=== PATIENT | male | born 1945 | race Caucasian/White ===

== ENCOUNTER 2016-07-27 02:17 | Inpatient (IN) | payer OTHER, MEDICARE ==
[2016-07-27] MEDS ORDERED: SODIUM CHLORIDE 0.9% 500 ML IV STA (02:47)
[2016-07-27] MEDS ORDERED: SODIUM CHLORIDE 0.9% 1,000 ML IV STA (02:47)
[2016-07-27] MEDS ORDERED: ONDANSETRON 4 MG/2 ML VIAL IVP STA (02:47)
[2016-07-27] MEDS ORDERED: PANTOPRAZOLE 40 MG/10 ML VIAL IVP STA (02:47)
--- NOTE | 2016-07-27 02:55 | ED ---
General Adult HPI - General Chief complaint: GI Bleed Stated complaint: bleeding Time Seen by Provider: 07/27/16 02:47 Source: patient, RN notes reviewed, old records reviewed Mode of arrival: ambulatory Limitations: no limitations - History of Present Illness Initial comments: This is a 70 male here for evaluation, patient presented here for evaluation of blood in his stool. Patient of breath or blood in stool about a cup, no blood thinners, no history of prior similar issues. No nausea vomiting, no abdominal pain this time. Patient has no trauma. No recent colonoscopy. No recent fevers. No recent diarrheal illnesses - Related Data Home Medications Medication Instructions Recorded Confirmed Aspirin [Adult Low Dose Aspirin EC] 81 mg PO DAILY 10/23/15 03/20/16 Atorvastatin [Lipitor] 80 mg PO HS 10/23/15 03/20/16 Clopidogrel [Plavix] 75 mg PO DAILY 10/23/15 03/20/16 Insulin Detemir [Levemir] 15 unit SQ DAILY 10/23/15 03/20/16 Levothyroxine Sodium [Levoxyl] 125 mcg PO DAILY 10/23/15 03/20/16 Lisinopril [Zestril] 10 mg PO HS 10/23/15 03/20/16 Nitroglycerin Sl Tabs [Nitrostat] 0.4 mg SUBLINGUAL Q5M PRN 10/23/15 03/20/16 Omeprazole 20 mg PO DAILY 10/23/15 03/20/16 Pregabalin [Lyrica] 50 mg PO DAILY 10/23/15 03/20/16 Propranolol HCl [Inderal Xl] 80 mg PO DAILY 10/23/15 03/20/16 Saxagliptin HCl [Onglyza] 5 mg PO DAILY 10/23/15 03/20/16 metFORMIN HCL 1,000 mg PO BID 10/23/15 03/20/16 Magnesium 200 mg PO TID 11/02/15 03/20/16 glipiZIDE [Glucotrol] 10 mg PO AC-BID 03/20/16 03/20/16 Allergies Allergy/AdvReac Type Severity Reaction Status Date / Time codeine Allergy Unknown Verified 07/27/16 02:27 Childhood heparin Allergy Unknown Verified 07/27/16 02:27 procaine HCl [From Novocain] Allergy Unknown Verified 07/27/16 02:27 Review of Systems ROS Statement: Those systems with pertinent positive or pertinent negative responses have been documented in the HPI. ROS Other: All systems not noted in ROS Statement are negative. Past Medical History Past Medical History: Coronary Artery Disease (CAD), Cancer, Chest Pain / Angina , Heart Failure, Diabetes Mellitus, Hyperlipidemia, Hypertension, Liver Disease , Myocardial Infarction ([place]), Thyroid Disorder Additional Past Medical History / Comment(s): low magnesium; Liver cancer Last Myocardial Infarction Date:: 08/2015 History of Any Multi-Drug Resistant Organisms: None Reported Past Surgical History: Heart Catheterization With Stent, Hernia Repair Additional Past Surgical History / Comment(s): sinus surgery, liver surgery, cardiac stenting x7-8 Past Anesthesia/Blood Transfusion Reactions: No Reported Reaction Date of Last Stent Placement:: 08/2015 Past Psychological History: No Psychological Hx Reported Smoking Status: Former smoker Past Alcohol Use History: None Reported Past Drug Use History: None Reported - Past Family History Mother Family Medical History: Myocardial Infarction ([place]) Father Family Medical History: Myocardial Infarction ([place]) General Exam Limitations: no limitations General appearance: alert, in no apparent distress Head exam: Present: atraumatic, normocephalic, normal inspection Eye exam: Present: normal appearance, PERRL, EOMI. Absent: scleral icterus, conjunctival injection, periorbital swelling ENT exam: Present: normal exam, mucous membranes moist Neck exam: Present: normal inspection. Absent: tenderness, meningismus, lymphadenopathy Respiratory exam: Present: normal lung sounds bilaterally. Absent: respiratory distress, wheezes, rales, rhonchi, stridor Cardiovascular Exam: Present: regular rate, normal rhythm, normal heart sounds. Absent: systolic murmur, diastolic murmur, rubs, gallop, clicks GI/Abdominal exam: Present: soft, normal bowel sounds. Absent: distended, tenderness, guarding, rebound, rigid Extremities exam: Present: normal inspection, full ROM, normal capillary refill. Absent: tenderness, pedal edema, joint swelling, calf tenderness Back exam: Present: normal inspection Neurological exam: Present: alert, oriented X3, CN II-XII intact Psychiatric exam: Present: normal affect, normal mood Skin exam: Present: warm, dry, intact, normal color. Absent: rash Course Vital Signs 07/27/16 07/27/16 07/27/16 02:23 03:27 05:12 Temperature 97.4 F L Pulse Rate 70 76 59 L Respiratory 18 16 16 Rate Blood Pressure 150/76 99/52 107/58 O2 Sat by Pulse 98 98 98 Oximetry - Reevaluation(s) Reevaluation #1: 07/27/16 05:31 Patient still feels lightheaded and weak Reevaluation #2: 07/27/16 05:31 Patient is without bloody bowel movement here in the emergency room Reevaluation #3: 07/27/16 05:31 No prior hemoglobin of recent and record Reevaluation #4: 07/27/16 05:31 Patient states she would like to be transferred to [place] where he had his prior care EKG Findings - EKG Comments: EKG Findings:: EKG shows sinus bradycardia rate of 57, MA 182, QRS 94, QTC 436 Medical Decision Making - Medical Decision Making 70 male to ER for evaluation of bright red blood per rectum. Patient has no active bleeding at this time, no bloody bowel movements here emergency room, hemodynamically stable, vital signs have been normal throughout ER stay stated, hemoglobin 10.7. Patient will be needed to be admitted for current and further GI evaluation - Lab Data Result diagrams: 07/27/16 02:43 07/27/16 02:43 Lab Results 07/27/16 07/27/16 07/27/16 Range/Units 02:33 02:43 02:43 WBC 7.8 (3.8-10.6) k/uL RBC 3.85 L (4.30-5.90) m/uL Hgb 10.4 L (13.0-17.5) gm/dL Hct 33.4 L (39.0-53.0) % MCV 86.8 (80.0-100.0) fL MCH 27.0 (25.0-35.0) pg MCHC 31.1 (31.0-37.0) g/dL RDW 20.5 H (11.5-15.5) % Plt Count 121 L (150-450) k/uL Neutrophils % 61 % Lymphocytes % 14 % Monocytes % 12 % Eosinophils % 9 % Basophils % 1 % Neutrophils # 4.8 (1.3-7.7) k/uL Lymphocytes # 1.1 (1.0-4.8) k/uL Monocytes # 0.9 (0-1.0) k/uL Eosinophils # 0.7 (0-0.7) k/uL Basophils # 0.1 (0-0.2) k/uL Hypochromasia Slight Anisocytosis Moderate PT (9.0-12.0) sec INR (<1.1) APTT (22.0-30.0) sec Sodium (137-145) mmol/L Potassium (3.5-5.1) mmol/L Chloride (98-107) mmol/L Carbon Dioxide (22-30) mmol/L Anion Gap mmol/L BUN (9-20) mg/dL Creatinine (0.66-1.25) mg/dL Est GFR (MDRD) Af Amer (>60 ml/min/1.73 sqM) Est GFR (MDRD) Non-Af (>60 ml/min/1.73 sqM) Glucose (74-99) mg/dL Plasma Lactic Acid Ronal (0.7-2.0) mmol/L Calcium (8.4-10.2) mg/dL Magnesium (1.6-2.3) mg/dL Total Bilirubin (0.2-1.3) mg/dL AST (17-59) U/L ALT (21-72) U/L Alkaline Phosphatase (38-126) U/L Total Creatine Kinase 69 (55-170) U/L CK-MB (CK-2) 1.5 (0.0-2.4) ng/mL CK-MB (CK-2) Rel Index 2.2 Troponin I <0.012 (0.000-0.034) ng/mL Total Protein (6.3-8.2) g/dL Albumin (3.5-5.0) g/dL Lipase (23-300) U/L Blood Type O Positive Blood Type Recheck No Antibody Screen NEGATIVE Spec Expiration Date 07/30/2016 - 233207/27/16 07/27/16 07/27/16 Range/Units 02:43 02:43 02:43 WBC (3.8-10.6) k/uL RBC (4.30-5.90) m/uL Hgb (13.0-17.5) gm/dL Hct (39.0-53.0) % MCV (80.0-100.0) fL MCH (25.0-35.0) pg MCHC (31.0-37.0) g/dL RDW (11.5-15.5) % Plt Count (150-450) k/uL Neutrophils % % Lymphocytes % % Monocytes % % Eosinophils % % Basophils % % Neutrophils # (1.3-7.7) k/uL Lymphocytes # (1.0-4.8) k/uL Monocytes # (0-1.0) k/uL Eosinophils # (0-0.7) k/uL Basophils # (0-0.2) k/uL Hypochromasia Anisocytosis PT 12.7 H (9.0-12.0) sec INR 1.3 (<1.1) APTT 25.9 (22.0-30.0) sec Sodium 142 (137-145) mmol/L Potassium 4.6 (3.5-5.1) mmol/L Chloride 111 H (98-107) mmol/L Carbon Dioxide 20 L (22-30) mmol/L Anion Gap 11 mmol/L BUN 22 H (9-20) mg/dL Creatinine 0.80 (0.66-1.25) mg/dL Est GFR (MDRD) Af Amer >60 (>60 ml/min/1.73 sqM) Est GFR (MDRD) Non-Af >60 (>60 ml/min/1.73 sqM) Glucose 83 (74-99) mg/dL Plasma Lactic Acid Ronal 2.5 H* (0.7-2.0) mmol/L Calcium 8.9 (8.4-10.2) mg/dL Magnesium 1.5 L (1.6-2.3) mg/dL Total Bilirubin 1.8 H (0.2-1.3) mg/dL AST 55 (17-59) U/L ALT 46 (21-72) U/L Alkaline Phosphatase 179 H (38-126) U/L Total Creatine Kinase (55-170) U/L CK-MB (CK-2) (0.0-2.4) ng/mL CK-MB (CK-2) Rel Index Troponin I (0.000-0.034) ng/mL Total Protein 5.3 L (6.3-8.2) g/dL Albumin 2.8 L (3.5-5.0) g/dL Lipase 46 (23-300) U/L Blood Type Blood Type Recheck Antibody Screen Spec Expiration Date Disposition Clinical Impression: Gastrointestinal hemorrhage Disposition: OTHER INSTITUTION NOT DEFINED Condition: Fair Instructions: Gastrointestinal Bleeding (ED) Referrals: Nonstaff,Physician [Primary Care Provider] - 1-2 days - Out of Hospital Transfer - Req. Specs Out of Hospital Transfer - Requested Specifics: Other Emergency Center ( [facility])
[2016-07-27 03:20] LABS: Anisocytosis Moderate; Basophils # (A) 0.1 k/uL (0-0.2); Basophils % (A) 1 %; CH 27.4; CHCM 31.6; Eosinophils # (A) 0.7 k/uL (0-0.7); Eosinophils % (A) 9 %; HCT 33.4 % (39.0-53.0); HGB 10.4 gm/dL (13.0-17.5); Hypochromasia Slight; Luc # (Auto) 0.24; Luc % (Auto) 3; Lymphocytes # (A) 1.1 k/uL (1.0-4.8); Lymphocytes % (A) 14 %; MCHC 31.1 g/dL (31.0-37.0); MCV 86.8 fL (80.0-100.0); Mean Platelet Volume 9.2; Monocytes # (A) 0.9 k/uL (0-1.0); Monocytes % (A) 12 %; Neutrophils # (A) 4.8 k/uL (1.3-7.7); Neutrophils % (A) 61 %; RBC 3.85 m/uL (4.30-5.90); RDW 20.5 % (11.5-15.5); WBC 7.8 k/uL (3.8-10.6); WBC (Perox) 7.72
[2016-07-27 03:28] LABS: INR 1.3 (<1.1); Partial Thromboplastin Time 25.9 sec (22.0-30.0); Prothrombin Time 12.7 sec (9.0-12.0)
[2016-07-27 03:35] LABS: ALT 46 U/L (21-72); AST 55 U/L (17-59); Alkaline Phosphatase 179 U/L (38-126); Anion Gap 11 mmol/L; Blood Urea Nitrogen 22 mg/dL (9-20); Calcium 8.9 mg/dL (8.4-10.2); Carbon Dioxide 20 mmol/L (22-30); Chloride 111 mmol/L (98-107); Glucose 83 mg/dL (74-99); Magnesium 1.5 mg/dL (1.6-2.3); Non-African American GFR(MDRD) >60 (>60 ml/min/1.73 sqM); Potassium 4.6 mmol/L (3.5-5.1); Sodium 142 mmol/L (137-145); Total Bilirubin 1.8 mg/dL (0.2-1.3); Total Protein 5.3 g/dL (6.3-8.2)
[2016-07-27 03:52] LABS: Creatine Kinase 69 U/L (55-170)
[2016-07-27 04:05] LABS: Creatine Kinase MB 1.5 ng/mL (0.0-2.4); Troponin I <0.012 ng/mL (0.000-0.034)
[2016-07-27 10:33] LABS: Glucose,Whole Blood 88 mg/dL (75-99)
[2016-07-27] MEDS ORDERED: SODIUM CHLORIDE 0.9% 1,000 ML IV ONE (11:26)
[2016-07-27 12:50] LABS: Anisocytosis Moderate; Basophils % (A) 0 %; CH 27.3; Eosinophils # (A) 0.4 k/uL (0-0.7); Eosinophils % (A) 7 %; HCT 30.8 % (39.0-53.0); HDW 3.24; HGB 9.7 gm/dL (13.0-17.5); Hypochromasia Moderate; Luc % (Auto) 4; Lymphocytes # (A) 0.9 k/uL (1.0-4.8); Lymphocytes % (A) 17 %; MCH 27.8 pg (25.0-35.0); MCHC 31.5 g/dL (31.0-37.0); MCV 88.3 fL (80.0-100.0); Mean Platelet Volume 8.3; Monocytes # (A) 0.5 k/uL (0-1.0); Monocytes % (A) 9 %; Neutrophils # (A) 3.6 k/uL (1.3-7.7); Neutrophils % (A) 64 %; RBC 3.48 m/uL (4.30-5.90); RDW 20.4 % (11.5-15.5); WBC 5.6 k/uL (3.8-10.6); WBC (Perox) 5.81
[2016-07-27] MEDS ORDERED: NITROGLYCERIN SL TABS 0.4 MG TAB SUBLINGUAL PRN (13:33)
[2016-07-27 13:47] LABS: Ovalocytes Present; Polychromasia Present
[2016-07-27 13:48] LABS: Crenated RBC Present; Large Platelets Present
[2016-07-27] MEDS: MAGNESIUM SULFATE-D5W PMX 1 GM in DEXTROSE/WATER 1 100ML.BAG IVPB SCH ×2 (14:56→16:58)
[2016-07-27] MEDS: MAGNESIUM OXIDE 400 MG TAB PO SCH ×2 (16:00→21:19)
[2016-07-27 17:56] LABS: Glucose,Whole Blood 152 mg/dL (75-99)
[2016-07-27] MEDS: LACTATED RINGERS 1,000 ML IV SCH (18:10)
--- NOTE | 2016-07-27 18:54 | HP ---
DATE OF ADMISSION: 07/27/2016 The patient came in with dark stools. The patient denied any abdominal pain. Patient has similar episodes in the past and patient underwent upper and lower GI endoscopy without any significant problems. The patient is scheduled to get a capsule endoscopy in [place] in [place]. The patient had about three such episodes yesterday and one episode today. Patient denied any fevers or chills. The patient denied any hematemesis. The patient denied any abdominal pain. Patient had a cardiac catheterization with eight stents placed in August last year. Patient is on aspirin and Plavix for that. The patient is not on any other anticoagulation. ROS: all other systems were reviewed and were negative. Home medications include: 1. Aspirin. 2. Atorvastatin. 3. Plavix. 4. Levemir. 5. Levothyroxine. 6. Lisinopril. 7. Nitroglycerine. 8. Omeprazole. 9. Pregabalin. 10. Propanol. 11. Sitagliptin. 12. Metformin. 13. Magnesium. 14. Glipizide. ALLERGIES: ALLERGIC TO CODEINE, HEPARIN. PAST MEDICAL HISTORY: Coronary artery disease with previous stents as mentioned above, heart failure as per the documentation but the patient denies any such history to co, diabetes mellitus, hyperlipidemia, hypertension, hypothyroidism, history of liver cancer in remission. Cardiac catheterization and stent placement in the past. SOCIAL HISTORY: Former smoker. Denied any alcohol abuse or drug abuse. FAMILY HISTORY: Myocardial infarction in mother and father had myocardial infarction. PHYSICAL EXAMINATION: VITAL SIGNS: Temperature 97.5, pulse of 66, respiratory rate of 20, blood pressure is 104/68, saturating at 100% on 2 liters of O2 by nasal cannula. GENERAL: The patient is alert and oriented x3, not in any acute distress. Well developed, well nourished. HEENT: Pupils are round and equally reacting to light. EOMI. No scleral icterus. No conjunctival pallor. Normocephalic, atraumatic. No pharyngeal erythema. No thyromegaly. CARDIOVASCULAR: S1 and S2 present. No murmurs, rubs, or gallops. PULMONARY: Chest is clear to auscultation, no wheezing or crackles. ABDOMEN: Soft, nontender, nondistended, normoactive bowel sounds. No palpable organomegaly. MUSCULOSKELETAL: No joint swelling or deformity. EXTREMITIES: No cyanosis, clubbing, or pedal edema. NEUROLOGICAL: Gross neurological examination did not reveal any focal deficits. SKIN: No rashes. LABORATORY DATA: CBC, CMP are abnormal for low hemoglobin of 9.7, which has gone down from 10.4, RDW 20.4 consistent with acute bleed and other significant labs, including BUN of 22, which is definitely elevated but minimally elevated and lactic acid is 2.5, magnesium is 1.5, which will be supplemented because of the lactic acidosis I will go ahead and give some IV fluids. Repeat lactic acid again tomorrow morning. Patient will be kept on IV fluids for today. ASSESSMENT AND PLAN: 1. Acute gastrointestinal bleed, possibility of upper gastrointestinal bleed. The patient is on Protonix at this point of time. The patient will need capsule endoscopy considering his previous normal endoscopies in the past, his bleed can be before small bowel AV malformations is a consideration, I will hold off on aspirin. We will continue with Plavix at this point of time. We cannot hold off on Plavix too long. If approved by [place], patient will be transferred to [facility]. 2. Coronary artery disease. 3. Diabetes mellitus. 4. Hypertension. 5. Hyperlipidemia. 6. History of liver cancer in remission. 7. Hypothyroidism. For above-mentioned chronic medical problems I will go ahead and continue his home medications except for diabetes mellitus. I will hold off on oral hypoglycemics. Patient will be on sliding scale along with Lantus. Gastroenterology was consulted. IONA
[2016-07-27 19:54] LABS: Anisocytosis Moderate; Basophils % (A) 1 %; CH 26.8; CHCM 29.2; Eosinophils # (A) 0.3 k/uL (0-0.7); Eosinophils % (A) 8 %; HCT 30.2 % (39.0-53.0); HDW 3.02; Hypochromasia Marked; Large Platelets Flag Slight; Luc # (Auto) 0.19; Luc % (Auto) 4; Lymphocytes # (A) 0.7 k/uL (1.0-4.8); Lymphocytes % (A) 14 %; MCH 27.6 pg (25.0-35.0); MCHC 29.9 g/dL (31.0-37.0); MCV 92.2 fL (80.0-100.0); Macrocytosis Slight; Mean Platelet Volume 11.8; Monocytes # (A) 0.5 k/uL (0-1.0); Monocytes % (A) 11 %; Neutrophils # (A) 2.8 k/uL (1.3-7.7); Neutrophils % (A) 62 %; RBC 3.27 m/uL (4.30-5.90); RDW 20.5 % (11.5-15.5); WBC 4.5 k/uL (3.8-10.6); WBC (Perox) 4.73
[2016-07-27 20:09] LABS: Crenated RBC Present; Tear Drop Cells Present
[2016-07-27 20:36] LABS: Glucose,Whole Blood 167 mg/dL (75-99)
[2016-07-27] MEDS ORDERED: ATORVASTATIN 80 MG TAB PO SCH (21:00)
[2016-07-28] MEDS: LACTATED RINGERS 1,000 ML IV SCH (02:35)
[2016-07-28 04:46] LABS: Anion Gap 6 mmol/L; Blood Urea Nitrogen 16 mg/dL (9-20); Carbon Dioxide 23 mmol/L (22-30); Chloride 112 mmol/L (98-107); Glucose 96 mg/dL (74-99); Magnesium 1.6 mg/dL (1.6-2.3); Non-African American GFR(MDRD) >60 (>60 ml/min/1.73 sqM); Sodium 141 mmol/L (137-145)
[2016-07-28 06:06] LABS: Anisocytosis Slight; CH 27.4; CHCM 30.7; HCT 30.8 % (39.0-53.0); HDW 3.37; HGB 9.5 gm/dL (13.0-17.5); Hypochromasia Marked; MCH 27.6 pg (25.0-35.0); MCHC 30.9 g/dL (31.0-37.0); MCV 89.5 fL (80.0-100.0); Mean Platelet Volume 8.6; RBC 3.45 m/uL (4.30-5.90); RDW 19.9 % (11.5-15.5); WBC 3.7 k/uL (3.8-10.6); WBC (Perox) 3.72
[2016-07-28] MEDS ORDERED: LEVOTHYROXINE 125 MCG TAB PO SCH (06:30)
--- NOTE | 2016-07-28 07:51 | XR ---
EXAMINATION TYPE: XR chest 1V DATE OF EXAM: 07/28/2016 6:29 AM COMPARISON: 03/20/2016 HISTORY: 70 year-old male shortness of breath TECHNIQUE: Single frontal view of the chest is obtained. FINDINGS: Heart remains upper limits of normal in size. Mild interstitial prominence is unchanged. Interval imp rovement in aeration at the left base with a new patchy peripheral right basilar opacity. IMPRESSION: Improved aeration at the left base with new patchy right basilar opacity which could represent atelec tasis or early infiltrate.
[2016-07-28 07:55] LABS: Glucose,Whole Blood 105 mg/dL (75-99)
[2016-07-28] MEDS: INSULIN LISPRO (humaLOG) 300 UNIT/3 ML VIAL SQ SCH ×3 (08:27→17:42)
[2016-07-28] MEDS: MAGNESIUM OXIDE 400 MG TAB PO SCH ×2 (08:29→17:41)
[2016-07-28 08:49] LABS: Add Differential Manual Differential
[2016-07-28 08:51] LABS: Nucleated Red Blood Cells 0 /100 WBC (0-0); Total Cells Counted 100
[2016-07-28 08:52] LABS: Crenated RBC Present; Ovalocytes Present
[2016-07-28] MEDS ORDERED: CLOPIDOGREL 75 MG TAB PO SCH (09:00)
[2016-07-28] MEDS ORDERED: PREGABALIN 50 MG CAP PO SCH (09:00)
[2016-07-28] MEDS ORDERED: PROPRANOLOL LA 80 MG CAP.SA.24H PO SCH (09:00)
[2016-07-28] MEDS ORDERED: INSULIN DETEMIR 100 UNIT/ML 10 ML VIAL SQ SCH (09:00)
[2016-07-28] MEDS ORDERED: PANTOPRAZOLE 40 MG/10 ML VIAL IVP SCH (09:45)
--- NOTE | 2016-07-28 09:58 | P.CNPUL ---
History of Present Illness Consult date: 07/28/16 Requesting physician: Gordy Dc Reason for consult: other (Critical care management) Chief complaint: Rectal bleeding History of present illness: This is a very pleasant 70-year-old gentleman who follows with Dr. Feng in [place]. He has a history of liver cancer status post chemo therapy, congestive heart failure, diabetes mellitus, hyperlipidemia, hypertension, hypothyroidism and coronary artery disease with previous stent placements 7. He is maintained on Plavix and aspirin. He follows with a wedding cake designer in the [facility]. He presented here yesterday with complaints of rectal bleeding. This was new for him and just started yesterday he felt there is at least a cup of blood. He did have some mild abdominal discomfort. He denied any chest pain, shortness of breath dizziness or lightheadedness. He presented with a hemoglobin of 9.0. His platelet counts were 37,000. He did receive 1 unit of packed red blood cells. His current hemoglobin is 9.0. Platelet count 69,000. He has had continued active bleeding since being here in the intensive care unit. The plan is for possible transfer to the [facility] as a bed becomes available if there is some delay he may have a capsule study while here. Currently he has no pulmonary complaints. No shortness of breath, cough or congestion. He has a remote history of smoking. He quit in 1994. His chest x-ray revealed some mild atelectasis in the right lung base. He is maintaining good O2 saturations in the 90s on room air. He currently has a 0.9 normal saline at 100 and milliliters per hour. His initial lactate was 2.2 currently 1.2. Review of Systems 14 point review of system was conducted. All negative other than as mentioned in the HPI. Past Medical History Past Medical History: Coronary Artery Disease (CAD), Cancer, Chest Pain / Angina , Heart Failure, Diabetes Mellitus, Hyperlipidemia, Hypertension, Liver Disease , Myocardial Infarction ([place]), Thyroid Disorder Additional Past Medical History / Comment(s): 10/2015 liver cancer was treated in [place] with chemo directly into a couple of the tumors and "burning" of the other tumors, IDDM type II, hypothyroid, hypomagnesium. Last Myocardial Infarction Date:: 1997 History of Any Multi-Drug Resistant Organisms: None Reported Past Surgical History: Heart Catheterization With Stent, Hernia Repair Additional Past Surgical History / Comment(s): sinus surgery, liver surgery at [place], cardiac stenting x7-8, EGD/colonoscopy, L inguinal hernia surgery. Past Anesthesia/Blood Transfusion Reactions: No Reported Reaction Date of Last Stent Placement:: 08/2015 Past Psychological History: No Psychological Hx Reported Additional Psychological History / Comment(s): Pt resides alone. He is independent. Smoking Status: Former smoker Past Alcohol Use History: None Reported Additional Past Alcohol Use History / Comment(s): Pt states he quit smokin in 1994. Past Drug Use History: None Reported - Past Family History Mother Family Medical History: Myocardial Infarction ([place]) Additional Family Medical History / Comment(s): Mother had a [place] at the age of 55yrs and then of a [place] at the age of 57yrs. Father Family Medical History: CVA/TIA Additional Family Medical History / Comment(s): Father had a endartectomy and during which he had a CVA and . He was 81 yrs old. Medications and Allergies Home Medications Medication Instructions Recorded Confirmed Type Aspirin [Adult Low Dose Aspirin EC] 81 mg PO DAILY 10/23/15 07/27/16 History Atorvastatin [Lipitor] 80 mg PO HS 10/23/15 07/27/16 History Clopidogrel [Plavix] 75 mg PO DAILY 10/23/15 07/27/16 History Insulin Detemir [Levemir] 15 unit SQ DAILY 10/23/15 07/27/16 History Levothyroxine Sodium [Levoxyl] 125 mcg PO DAILY 10/23/15 07/27/16 History Lisinopril [Zestril] 10 mg PO HS 10/23/15 07/27/16 History Nitroglycerin Sl Tabs [Nitrostat] 0.4 mg SUBLINGUAL Q5M PRN 10/23/15 07/27/16 History Omeprazole 20 mg PO DAILY 10/23/15 07/27/16 History Pregabalin [Lyrica] 50 mg PO DAILY 10/23/15 07/27/16 History Propranolol HCl [Inderal Xl] 80 mg PO DAILY 10/23/15 07/27/16 History Saxagliptin HCl [Onglyza] 5 mg PO DAILY 10/23/15 07/27/16 History metFORMIN HCL 1,000 mg PO BID 10/23/15 07/27/16 History Magnesium 200 mg PO TID 11/02/15 07/27/16 History glipiZIDE [Glucotrol] 10 mg PO AC-BID 03/20/16 07/27/16 History Allergies Allergy/AdvReac Type Severity Reaction Status Date / Time codeine Allergy Unknown Verified 07/27/16 02:27 Childhood heparin Allergy Unknown Verified 07/27/16 02:27 procaine HCl [From Novocain] Allergy Unknown Verified 07/27/16 02:27 Physical Exam Vitals: Vital Signs Temp Pulse Pulse Resp BP BP BP 07/28/16 09:00 70 22 115/66 07/28/16 08:10 72 18 107/62 07/28/16 07:00 66 13 96/54 07/28/16 06:00 58 L 17 115/65 07/28/16 05:00 70 18 115/65 07/28/16 04:00 97.9 F 65 15 97/47 07/28/16 03:00 56 L 13 97/57 07/28/16 02:00 68 18 103/58 07/28/16 01:00 57 L 13 93/51 07/28/16 00:40 98.2 F 68 16 93/52 07/28/16 00:00 98.2 F 66 62 12 75/42 07/27/16 23:00 63 16 94/51 07/27/16 22:44 98.2 F 72 18 94/51 07/27/16 22:14 98.2 F 75 16 97/55 07/27/16 22:04 98.3 F 65 18 97/51 07/27/16 22:00 64 22 118/62 07/27/16 21:00 57 L 21 118/62 07/27/16 20:37 07/27/16 19:45 97.4 F L 60 16 118/66 07/27/16 18:39 124/75 07/27/16 14:43 97.5 F L 65 20 92/60 07/27/16 12:45 97.8 F 57 L 20 111/53 07/27/16 11:55 97.8 F 66 18 105/68 Pulse Ox 07/28/16 09:00 96 07/28/16 08:10 95 07/28/16 07:00 94 L 07/28/16 06:00 95 07/28/16 05:00 94 L 07/28/16 04:00 94 L 07/28/16 03:00 95 07/28/16 02:00 93 L 07/28/16 01:00 91 L 07/28/16 00:40 07/28/16 00:00 94 L 07/27/16 23:00 91 L 07/27/16 22:44 07/27/16 22:14 07/27/16 22:04 07/27/16 22:00 94 L 07/27/16 21:00 96 07/27/16 20:37 96 07/27/16 19:45 97 07/27/16 18:39 07/27/16 14:43 100 07/27/16 12:45 99 07/27/16 11:55 98 Intake and Output 07/27/16 07/28/16 07/28/16 22:59 06:59 14:59 Intake Total 0 1110 300 Output Total 100 Balance 0 1010 300 Intake: IV 800 300 Lactated Ringers 1,000 ml 800 300 @ 100 mls/hr IV .Q10H MAC Rx#:[id number] Blood Product 0 310 Rc As-1 Unit 0 310 [id number] Output: Urine 100 Other: Voiding Method Toilet Toilet Toilet Urinal Urinal # Voids 1 # Bowel Movements 1 1 Weight 100.2 kg GENERAL EXAM: Alert, comfortable in no apparent distress. HEAD: Normocephalic. EYES: Normal reaction of pupils, equal size. NOSE: Clear with pink turbinates. THROAT: No erythema or exudates. NECK: No masses, no JVD. CHEST: No chest wall deformity. LUNGS: Equal air entry with no crackles, wheeze, rhonchi or dullness. CVS: S1 and S2 normal with no audible murmurs, regular rhythm. ABDOMEN: No hepatosplenomegaly, normal bowel sounds, no guarding or rigidity. SPINE: No scoliosis or deformity SKIN: No rashes CENTRAL NERVOUS SYSTEM: No focal deficits, tone is normal in all 4 extremities. Extremities: There is no peripheral edema. No clubbing no cyanosis. Peripheral pulses are intact. Results - Laboratory Findings CBC and BMP: 07/28/16 04:18 07/28/16 04:18 PT/INR, D-dimer PT 12.7 sec (9.0-12.0) H 07/27/16 02:43 INR 1.3 (<1.1) 07/27/16 02:43 Abnormal lab findings: Abnormal Labs 07/27/16 07/27/16 07/27/16 11:45 16:28 17:14 WBC RBC 3.48 L Hgb 9.7 L Hct 30.8 L MCHC RDW 20.4 H Plt Count 96 L Lymphocytes # 0.9 L Lymphocytes # (Manual) Chloride POC Glucose (mg/dL) 152 H Plasma Lactic Acid Ronal 2.2 H* Calcium 07/27/16 07/27/16 07/27/16 19:06 20:34 20:42 WBC RBC 3.27 L Hgb 9.0 L Hct 30.2 L MCHC 29.9 L RDW 20.5 H Plt Count 37 L* D Lymphocytes # 0.7 L Lymphocytes # (Manual) Chloride POC Glucose (mg/dL) 167 H Plasma Lactic Acid Ronal 2.2 H* Calcium 07/28/16 07/28/16 07/28/16 04:18 04:18 07:54 WBC 3.7 L RBC 3.45 L Hgb 9.5 L Hct 30.8 L MCHC 30.9 L RDW 19.9 H Plt Count 69 L D Lymphocytes # Lymphocytes # (Manual) 0.6 L Chloride 112 H POC Glucose (mg/dL) 105 H Plasma Lactic Acid Ronal Calcium 8.0 L - Diagnostic Findings Chest x-ray: image reviewed (Mild atelectasis of the right lung base.) Assessment and Plan Plan: Impression: #1 Acute gastrointestinal bleeding of unknown source. Suspect small bowel. Presenting hemoglobin 9.0, status post 1 unit of packed red blood cells. Current hemoglobin 9.5. #2 Thrombocytopenia suspect secondary to liver cancer. Initial platelet count 37,000, current count 69,000. #3 History of liver cancer with chemotherapy injected directly into the tumors and possible radiation in October 2015. Reports of which are unavailable. #4 Coronary artery disease with multiple stent placements, 7. Follows with a wedding cake designer in the [facility]. Presented on Plavix and aspirin currently on hold. #5 Hypertension. #6 Hyperlipidemia. #7 Diabetes mellitus, type II. #8 Hypothyroidism. Plan: The patient was seen and evaluated by Dr. Leslie. His chest x-ray and labs were reviewed. The plan is for capsule study to be done at the [facility] as a bed becomes available for transfer. If not we can conduct the procedure here. In the interim we'll continue with the lactated Ringer's at 100 mL per hour. He remains on IV Protonix 40 mg daily. He is currently on a clear liquid diet. We 'll continue to monitor him closely here in the intensive care unit. He currently remains hemodynamically stable. Not on any pressors. We will continue to follow and make further recommendations based on his clinical status. Time with Patient: Greater than 30
--- NOTE | 2016-07-28 10:17 | P.CONS ---
History of Present Illness - Reason for Consult Consult date: 07/28/16 rectal bleeding Requesting physician: Remigio Herring - History of Present Illness 70-year-old gentleman [place] patient presents with painless rectal bleeding that started yesterday. Patient has a history of liver carcinoma October 2015 with chemotherapy, IDDM type II, hypothyroidism, abdominal hernia, hypertension, heart failure, hyperlipidemia, anemia, underlying liver disease, and CAD requiring 8 stents last one placed August 2015 on aspirin Plavix. He was recently hospitalized at [facility] 1 month ago and underwent EGD colonoscopy for evaluation of anemia. According to the patient exams were within normal limits. He states his hemoglobin at that time was between 9-10. There was discussion at that time possibly proceeding with outpatient small bowel capsule endoscopy. He is passing multiple small to moderate episodes of thin red blood per rectum without stool since admission. Denies abdominal pain. Admission hemoglobin 10.4 currently 9.5. He did receive a unit of blood last night for hemoglobin of 9 and platelet count of 37,000. Current platelet count is 69,000. INR 1.3. BUN 16. Creatinine 0.7. No episodes of hematemesis or melena. Afebrile. Hemodynamic stable. Review of Systems Constitutional: Denies fever, chills, sweats, weight gain, or loss. HEENT: Negative for migraines, blurred vision or loss, earaches, drainage, tinnitus, oral mucosal lesions, dysphagia, or odynophagia. Cardiac: CAD with multiple PCI stents. CHF. Hypertension. Hyperlipidemia. Negative for chest pain, arrhythmias, or palpitation. Respiratory: Negative for shortness of breath, hemoptysis, cough, or sputum production. Gastrointestinal: See HPI for pertinent findings. Genitourinary: Negative for hematuria, urgency, frequency, polyuria, dysuria, or penile discharge. Musculoskeletal: Negative for muscle aches, swelling, arthritis, and arthralgias. Neurologic: Negative for stroke or TIA. Endocrine: Hypothyroidism.. Skin: Negative for rash or itching. Psychiatric: Negative history for depression and anxiety All systems: negative (See HPI) Past Medical History Past Medical History: Coronary Artery Disease (CAD), Cancer, Chest Pain / Angina , Heart Failure, Diabetes Mellitus, Hyperlipidemia, Hypertension, Liver Disease , Myocardial Infarction (NE), Thyroid Disorder Additional Past Medical History / Comment(s): 10/2015 liver cancer was treated in [place] with chemo directly into a couple of the tumors and "burning" of the other tumors, IDDM type II, hypothyroid, hypomagnesium. Last Myocardial Infarction Date:: 1997 History of Any Multi-Drug Resistant Organisms: None Reported Past Surgical History: Heart Catheterization With Stent, Hernia Repair Additional Past Surgical History / Comment(s): sinus surgery, liver surgery at [place], cardiac stenting x7-8, EGD/colonoscopy, L inguinal hernia surgery. Past Anesthesia/Blood Transfusion Reactions: No Reported Reaction Date of Last Stent Placement:: 08/2015 Past Psychological History: No Psychological Hx Reported Additional Psychological History / Comment(s): Pt resides alone. He is independent. Smoking Status: Former smoker Past Alcohol Use History: None Reported Additional Past Alcohol Use History / Comment(s): Pt states he quit smokin in 1994. Past Drug Use History: None Reported - Past Family History Mother Family Medical History: Myocardial Infarction (NE) Additional Family Medical History / Comment(s): Mother had a NE at the age of 55yrs and then of a NE at the age of 57yrs. Father Family Medical History: CVA/TIA Additional Family Medical History / Comment(s): Father had a endartectomy and during which he had a CVA and . He was 81 yrs old. Medications and Allergies Home Medications Medication Instructions Recorded Confirmed Type Aspirin [Adult Low Dose Aspirin EC] 81 mg PO DAILY 10/23/15 07/27/16 History Atorvastatin [Lipitor] 80 mg PO HS 10/23/15 07/27/16 History Clopidogrel [Plavix] 75 mg PO DAILY 10/23/15 07/27/16 History Insulin Detemir [Levemir] 15 unit SQ DAILY 10/23/15 07/27/16 History Levothyroxine Sodium [Levoxyl] 125 mcg PO DAILY 10/23/15 07/27/16 History Lisinopril [Zestril] 10 mg PO HS 10/23/15 07/27/16 History Nitroglycerin Sl Tabs [Nitrostat] 0.4 mg SUBLINGUAL Q5M PRN 10/23/15 07/27/16 History Omeprazole 20 mg PO DAILY 10/23/15 07/27/16 History Pregabalin [Lyrica] 50 mg PO DAILY 10/23/15 07/27/16 History Propranolol HCl [Inderal Xl] 80 mg PO DAILY 10/23/15 07/27/16 History Saxagliptin HCl [Onglyza] 5 mg PO DAILY 10/23/15 07/27/16 History metFORMIN HCL 1,000 mg PO BID 10/23/15 07/27/16 History Magnesium 200 mg PO TID 11/02/15 07/27/16 History glipiZIDE [Glucotrol] 10 mg PO AC-BID 03/20/16 07/27/16 History Allergies Allergy/AdvReac Type Severity Reaction Status Date / Time codeine Allergy Unknown Verified 07/27/16 02:27 Childhood heparin Allergy Unknown Verified 07/27/16 02:27 procaine HCl [From Novocain] Allergy Unknown Verified 07/27/16 02:27 Physical Exam Vitals: Vital Signs Temp Pulse Pulse Resp BP BP BP 07/28/16 09:00 70 22 115/66 07/28/16 08:10 98.6 F 72 18 107/62 07/28/16 07:00 66 13 96/54 07/28/16 06:00 58 L 17 115/65 07/28/16 05:00 70 18 115/65 07/28/16 04:00 97.9 F 65 15 97/47 07/28/16 03:00 56 L 13 97/57 07/28/16 02:00 68 18 103/58 07/28/16 01:00 57 L 13 93/51 07/28/16 00:40 98.2 F 68 16 93/52 07/28/16 00:00 98.2 F 66 62 12 75/42 07/27/16 23:00 63 16 94/51 07/27/16 22:44 98.2 F 72 18 94/51 07/27/16 22:14 98.2 F 75 16 97/55 07/27/16 22:04 98.3 F 65 18 97/51 07/27/16 22:00 64 22 118/62 07/27/16 21:00 57 L 21 118/62 07/27/16 20:37 07/27/16 19:45 97.4 F L 60 16 118/66 07/27/16 18:39 124/75 07/27/16 14:43 97.5 F L 65 20 92/60 07/27/16 12:45 97.8 F 57 L 20 111/53 07/27/16 11:55 97.8 F 66 18 105/68 Pulse Ox 07/28/16 09:00 96 07/28/16 08:10 95 07/28/16 07:00 94 L 07/28/16 06:00 95 07/28/16 05:00 94 L 07/28/16 04:00 94 L 07/28/16 03:00 95 07/28/16 02:00 93 L 07/28/16 01:00 91 L 07/28/16 00:40 07/28/16 00:00 94 L 07/27/16 23:00 91 L 07/27/16 22:44 07/27/16 22:14 07/27/16 22:04 07/27/16 22:00 94 L 07/27/16 21:00 96 07/27/16 20:37 96 07/27/16 19:45 97 07/27/16 18:39 07/27/16 14:43 100 07/27/16 12:45 99 07/27/16 11:55 98 Intake and Output 07/27/16 07/28/16 07/28/16 22:59 06:59 14:59 Intake Total 0 1110 300 Output Total 100 Balance 0 1010 300 Intake: IV 800 300 Lactated Ringers 1,000 ml 800 300 @ 100 mls/hr IV .Q10H [facility] Rx#:[id number] Blood Product 0 310 Rc As-1 Unit 0 310 [id number] Output: Urine 100 Other: Voiding Method Toilet Toilet Toilet Urinal Urinal # Voids 1 # Bowel Movements 1 1 Weight 100.2 kg General appearance: The patient is alert, oriented, in no acute distress. HET: Head is normocephalic and atraumatic. Pupils are equal and reactive. Oropharynx is clear without lesions. Neck: Supple without lymphadenopathy. Trachea midline. Heart: S1 S2. Regular rate and rhythm. Lungs: No crackles or wheezes are heard. Abdomen: Soft, large left lower quadrant nonreducible hernia with localized panniculitis, mild tenderness palpated over the hernia but no rebound or guarding. Bowel sounds present. No peritoneal signs. No palpable organomegaly or masses. Extremities: Normal skin color and turgor. No cyanosis, rash, ulceration, clubbing, or edema. Radial and pedal pulses are 2/4 bilaterally. Neurological: No focal deficits. Strength and sensation are grossly intact. Rectal: Thin bright red blood per rectum without stool. No palpable masses. No visible thrombosed hemorrhoids. Results CBC & Chem 7: 07/28/16 04:18 07/28/16 04:18 Labs: Abnormal Lab Results - Last 24 Hours (Table) 07/27/16 07/27/16 07/27/16 Range/Units 11:45 16:28 17:14 WBC (3.8-10.6) k/uL RBC 3.48 L (4.30-5.90) m/uL Hgb 9.7 L (13.0-17.5) gm/dL Hct 30.8 L (39.0-53.0) % MCHC (31.0-37.0) g/dL RDW 20.4 H (11.5-15.5) % Plt Count 96 L (150-450) k/uL Lymphocytes # 0.9 L (1.0-4.8) k/uL Lymphocytes # (Manual) (1.0-4.8) k/uL Chloride (98-107) mmol/L POC Glucose (mg/dL) 152 H (75-99) mg/dL Plasma Lactic Acid Ronal 2.2 H* (0.7-2.0) mmol/L Calcium (8.4-10.2) mg/dL 07/27/16 07/27/16 07/27/16 Range/Units 19:06 20:34 20:42 WBC (3.8-10.6) k/uL RBC 3.27 L (4.30-5.90) m/uL Hgb 9.0 L (13.0-17.5) gm/dL Hct 30.2 L (39.0-53.0) % MCHC 29.9 L (31.0-37.0) g/dL RDW 20.5 H (11.5-15.5) % Plt Count 37 L* D (150-450) k/uL Lymphocytes # 0.7 L (1.0-4.8) k/uL Lymphocytes # (Manual) (1.0-4.8) k/uL Chloride (98-107) mmol/L POC Glucose (mg/dL) 167 H (75-99) mg/dL Plasma Lactic Acid Ronal 2.2 H* (0.7-2.0) mmol/L Calcium (8.4-10.2) mg/dL 07/28/16 07/28/16 07/28/16 Range/Units 04:18 04:18 07:54 WBC 3.7 L (3.8-10.6) k/uL RBC 3.45 L (4.30-5.90) m/uL Hgb 9.5 L (13.0-17.5) gm/dL Hct 30.8 L (39.0-53.0) % MCHC 30.9 L (31.0-37.0) g/dL RDW 19.9 H (11.5-15.5) % Plt Count 69 L D (150-450) k/uL Lymphocytes # (1.0-4.8) k/uL Lymphocytes # (Manual) 0.6 L (1.0-4.8) k/uL Chloride 112 H (98-107) mmol/L POC Glucose (mg/dL) 105 H (75-99) mg/dL Plasma Lactic Acid Ronal (0.7-2.0) mmol/L Calcium 8.0 L (8.4-10.2) mg/dL Assessment and Plan (1) Rectal bleeding Narrative/Plan: 70-year-old gentleman [place] patient admitted with painless bright red blood per rectum for the last 24 hours receiving dual antiplatelet therapy for her history of CAD with multiple PCI stents with underlying history of liver disease and liver carcinoma with acute on chronic anemia with a component of acute blood loss anemia status post EGD colonoscopy 1 month ago at outside facility with unremarkable findings. Etiology of bleeding could be from small bowel possible bleeding angiectasias however underlying neoplasm cannot be entirely excluded. Status: Acute (2) Liver carcinoma Status: Acute (3) Abdominal hernia Status: Acute (4) Thrombocytopenia Status: Acute (5) CAD (coronary artery disease) Status: Acute (6) Acute blood loss anemia Status: Acute (7) Chronic anemia Status: Acute Plan: 1. Request for transfer to [place] in progress. Will tentatively plan on proceeding with small bowel capsule endoscopy tomorrow morning unless patient is transferred to [place] [facility]. 2. Agreeable for clear liquid diet with close monitoring of CBC and blood transfusion as indicated. The corporate banking officer has discussed the risks, benefits and alternative therapies for the above-mentioned procedure and for both sedation/analgesia as well as necessary blood product administration, if indicated, as they pertain to this patient. The patient has indicated understanding and acceptance of the risks and procedures discussed. Thank you for this kind referral and the opportunity to participate in the care of your patient. This consultation was discussed with Dr. Leo. The impression and plan of care have been directed as dictated.
[2016-07-28] MEDS ORDERED: Magnesium Replacement Protocol 1 EACH MISC MISCELLANE PRN (10:53)
[2016-07-28] MEDS: MAGNESIUM SULFATE-D5W PMX 1 GM in DEXTROSE/WATER 1 100ML.BAG IVPB SCH ×2 (11:22→12:28)
[2016-07-28 11:42] LABS: Anisocytosis Slight; CH 27.4; CHCM 30.5; HCT 33.7 % (39.0-53.0); HDW 3.46; HGB 10.3 gm/dL (13.0-17.5); Hypochromasia Marked; MCH 27.6 pg (25.0-35.0); MCHC 30.7 g/dL (31.0-37.0); Mean Platelet Volume 8.3; Poikilocytosis Slight; RBC 3.74 m/uL (4.30-5.90); RDW 19.8 % (11.5-15.5); WBC 6.5 k/uL (3.8-10.6)
[2016-07-28 12:27] VITALS: TEMP 98.7
[2016-07-28 12:32] LABS: Glucose,Whole Blood 174 mg/dL (75-99)
--- NOTE | 2016-07-28 15:35 | DS ---
DATE OF ADMISSION: 07/27/2016 DATE OF DISCHARGE: Patient is a 70-year-old gentleman who came in with complaints of GI bleed, most probably in the small bowel and patient had upper and lower GI endoscopy in [facility] and patient is being transferred to [facility] at this point of time. Patient had 2 large bowel movements, which were bloody today. Patient's hemoglobin at this point of time is 10.3, but probably not an accurate presentation of his actually hemoglobin. His actual hemoglobin is probably way lower. As he is hemodynamically stable we are not transfusing him, but if patient has more bowel movements like this patient may require blood transfusion. Patient is on aspirin and Plavix, which are being held at this point of time. Patient is on IV Protonix at this point of time. Patient had a recent cardiac catheterization with stent placement in the month of August last year. Patient had a recent upper and lower GI endoscopies, which are essentially within normal limits in [facility] as mentioned above. Patient is also on a beta stephanie, propranolol, which is probably not an appropriate medication considering his low normal blood pressures of 90s to 100 systolic and diastolic between 50 to 70. His lisinopril is being held at this point of time. Patient was seen and examined on the day of discharge. Vitals are stable. PHYSICAL EXAMINATION: GENERAL: The patient is alert and oriented x3, not in any acute distress. Well developed, well nourished. HEENT: Pupils are round and equally reacting to light. EOMI. No scleral icterus. No conjunctival pallor. Normocephalic, atraumatic. No pharyngeal erythema. No thyromegaly. CARDIOVASCULAR: S1 and S2 present. No murmurs, rubs, or gallops. PULMONARY: Chest is clear to auscultation, no wheezing or crackles. ABDOMEN: Soft, nontender, nondistended, normoactive bowel sounds. No palpable organomegaly. MUSCULOSKELETAL: No joint swelling or deformity. EXTREMITIES: No cyanosis, clubbing, or pedal edema. NEUROLOGICAL: Gross neurological examination did not reveal any focal deficits. SKIN: No rashes. ASSESSMENT AND PLAN: 1. Acute gastrointestinal bleed, most probably acute blood loss anemia from gastrointestinal bleed, but most probably from small bowel. 2. Coronary artery disease. 3. Type 2 diabetes mellitus. 4. Hypertension. 5. Hyperlipidemia. 6. History of liver cancer, in remission. 7. Hypothyroidism. [facility]. The patient is hemodynamically stable at the time of discharge and has 2 peripheral IV lines at the time of discharge. I spent greater than 35 minutes in total transfer process.
[2016-07-28] MEDS ORDERED: MAGNESIUM CITRATE 296 ML BOTTLE PO ONE (17:00)
[2016-07-28 17:40] LABS: Glucose,Whole Blood 146 mg/dL (75-99)
[2016-07-28 18:16] VITALS: BP 125/74; PULSE 73; RESP 23
== END 2016-07-28 18:46 | DRG 378 ==
LOC: EC 02:17 → 4MS4W 11:29 → 6ICU 20:29
PROVIDERS: ADMIT Internal Medicine; ATTEND Internal Medicine
PROC: 30233N1 Transfusion of Nonautologous Red Blood Cells into Peripheral Vein, Percutaneous Approach (ICD-10-PCS; principal; 2016-07-27)
DX: K92.2 Gastrointestinal hemorrhage, unspecified (principal); E87.2 Acidosis; D69.59 Other secondary thrombocytopenia; I50.9 Heart failure, unspecified; R00.1 Bradycardia, unspecified; I11.0 Hypertensive heart disease with heart failure; E83.42 Hypomagnesemia; D62 Acute posthemorrhagic anemia; J98.11 Atelectasis; I25.10 Atherosclerotic heart disease of native coronary artery without angina pectoris; E11.9 Type 2 diabetes mellitus without complications; R53.1 Weakness; K46.9 Unspecified abdominal hernia without obstruction or gangrene; T46.4X5A Adverse effect of angiotensin-converting-enzyme inhibitors, initial encounter; E03.9 Hypothyroidism, unspecified; E78.5 Hyperlipidemia, unspecified; Z79.82 Long term (current) use of aspirin; Z79.4 Long term (current) use of insulin; Z82.49 Family history of ischemic heart disease and other diseases of the circulatory system; Z95.5 Presence of coronary angioplasty implant and graft; Z87.891 Personal history of nicotine dependence; Z79.02 Long term (current) use of antithrombotics/antiplatelets; Z92.21 Personal history of antineoplastic chemotherapy; Z82.3 Family history of stroke; I25.2 Old myocardial infarction; Z88.4 Allergy status to anesthetic agent; Z88.5 Allergy status to narcotic agent; Z88.8 Allergy status to other drugs, medicaments and biological substances; Z92.3 Personal history of irradiation; Z79.84 Long term (current) use of oral hypoglycemic drugs; Z79.899 Other long term (current) drug therapy; Z85.05 Personal history of malignant neoplasm of liver
CPT/HCPCS: 36415; 71010; 80048; 80053; 82550; 82553; 83605; 83690; 83735; 84484; 85025; 85027; 85610; 85730; 86850; 86900; 86901; 86920; 93005; 96361; 96374; 96375; 99285

== ENCOUNTER 2016-09-18 09:02 | Inpatient (IN) | payer OTHER, MEDICARE ==
[2016-09-18] MEDS ORDERED: SODIUM CHLORIDE 0.9% 1,000 ML IV STA ×2 (09:51→12:49)
[2016-09-18] MEDS ORDERED: TOPICAL SKIN ADHESIVE 1 EACH AMP TOPICAL STA (09:52)
--- NOTE | 2016-09-18 09:55 | ED ---
General Adult HPI - General Chief complaint: Fall Stated complaint: Fall Time Seen by Provider: 09/18/16 09:33 Source: patient, RN notes reviewed Mode of arrival: EMS Limitations: no limitations - History of Present Illness Initial comments: Patient is a pleasant 70-year-old male presenting to the emergency Department with complaints of weakness. Symptoms have been present for a couple of days. Patient fell trying to get out of bed today and was unable to get up off the floor. Patient is not on any blood thinners. Patient did strike his head. Patient states last tetanus immunization was less than 1 year. Patient states his blood sugar has been running high, around 300. Patient states this morning EMS read it as high. Patient feels generally weak. No isolated area of weakness. No confusion. - Related Data Home Medications Medication Instructions Recorded Confirmed Aspirin [Adult Low Dose Aspirin EC] 81 mg PO DAILY 10/23/15 07/27/16 Atorvastatin [Lipitor] 80 mg PO HS 10/23/15 07/27/16 Clopidogrel [Plavix] 75 mg PO DAILY 10/23/15 07/27/16 Insulin Detemir [Levemir] 15 unit SQ DAILY 10/23/15 07/27/16 Levothyroxine Sodium [Levoxyl] 125 mcg PO DAILY 10/23/15 07/27/16 Lisinopril [Zestril] 10 mg PO HS 10/23/15 07/27/16 Nitroglycerin Sl Tabs [Nitrostat] 0.4 mg SUBLINGUAL Q5M PRN 10/23/15 07/27/16 Omeprazole 20 mg PO DAILY 10/23/15 07/27/16 Pregabalin [Lyrica] 50 mg PO DAILY 10/23/15 07/27/16 Propranolol HCl [Inderal Xl] 80 mg PO DAILY 10/23/15 07/27/16 Saxagliptin HCl [Onglyza] 5 mg PO DAILY 10/23/15 07/27/16 metFORMIN HCL 1,000 mg PO BID 10/23/15 07/27/16 Magnesium 200 mg PO TID 11/02/15 07/27/16 glipiZIDE [Glucotrol] 10 mg PO AC-BID 03/20/16 07/27/16 Allergies Allergy/AdvReac Type Severity Reaction Status Date / Time codeine Allergy Unknown Verified 07/27/16 02:27 Childhood heparin Allergy Unknown Verified 07/27/16 02:27 procaine HCl [From Novocain] Allergy Unknown Verified 07/27/16 02:27 Review of Systems ROS Statement: Those systems with pertinent positive or pertinent negative responses have been documented in the HPI. ROS Other: All systems not noted in ROS Statement are negative. Constitutional: Denies: fever Eyes: Denies: eye pain ENT: Denies: ear pain Respiratory: Denies: cough Cardiovascular: Denies: chest pain Endocrine: Reports: fatigue Gastrointestinal: Reports: nausea. Denies: abdominal pain Genitourinary: Denies: dysuria Musculoskeletal: Denies: back pain Neurological: Reports: weakness (Generalized). Denies: headache Past Medical History Past Medical History: Coronary Artery Disease (CAD), Cancer, Chest Pain / Angina , Heart Failure, Diabetes Mellitus, Hyperlipidemia, Hypertension, Liver Disease , Myocardial Infarction (MA), Thyroid Disorder Additional Past Medical History / Comment(s): 10/2015 liver cancer was treated in [place] with chemo directly into a couple of the tumors and "burning" of the other tumors, IDDM type II, hypothyroid, hypomagnesium. Last Myocardial Infarction Date:: 1997 History of Any Multi-Drug Resistant Organisms: None Reported Past Surgical History: Heart Catheterization With Stent, Hernia Repair Additional Past Surgical History / Comment(s): sinus surgery, liver surgery at [place], cardiac stenting x7-8, EGD/colonoscopy, L inguinal hernia surgery. Past Anesthesia/Blood Transfusion Reactions: No Reported Reaction Date of Last Stent Placement:: 08/2015 Past Psychological History: No Psychological Hx Reported Additional Psychological History / Comment(s): Pt resides alone. He is independent. Smoking Status: Former smoker Past Alcohol Use History: None Reported Additional Past Alcohol Use History / Comment(s): Pt states he quit smokin in 1994. Past Drug Use History: None Reported - Past Family History Mother Family Medical History: Myocardial Infarction (MA) Additional Family Medical History / Comment(s): Mother had a MA at the age of 55yrs and then of a MA at the age of 57yrs. Father Family Medical History: CVA/TIA Additional Family Medical History / Comment(s): Father had a endartectomy and during which he had a CVA and . He was 81 yrs old. General Exam Limitations: no limitations General appearance: alert, in no apparent distress Head exam: Present: other (Right forehead laceration) Eye exam: Present: normal appearance, PERRL, EOMI. Absent: nystagmus ENT exam: Present: normal oropharynx Neck exam: Present: normal inspection. Absent: tenderness Respiratory exam: Present: normal lung sounds bilaterally Cardiovascular Exam: Present: regular rate, normal rhythm GI/Abdominal exam: Present: soft. Absent: tenderness Extremities exam: Present: normal inspection, full ROM. Absent: tenderness Neurological exam: Present: alert, oriented X3, CN II-XII intact. Absent: motor sensory deficit Expanded Speech: Present: fluid speech Cranial nerves: EOM's Intact: Normal Motor strength exam: RUE: 5, LUE: 5, RLE: 5, LLE: 5 Eye Response: (4) open spontaneously Motor Response: (6) obeys commands Verbal Response: (5) oriented Psychiatric exam: Present: normal affect, normal mood Skin exam: Present: other (Right forehead laceration) Course Vital Signs 09/18/16 09/18/16 09/18/16 09:06 09:17 09:31 Pulse Rate 83 66 68 Respiratory 16 Rate Blood Pressure 93/54 83/53 94/60 O2 Sat by Pulse 95 94 L 94 L Oximetry 09/18/16 09/18/16 09:42 10:09 Pulse Rate 62 38 L Respiratory Rate Blood Pressure 91/61 77/47 O2 Sat by Pulse 95 97 Oximetry EKG Findings - EKG Comments: EKG Findings:: Junctional rhythm at 54. QRS 90. QT 480. QTC 455. Left axis. Low QRS voltage. T-wave inversion in inferior. Procedures - Laceration Laceration #1 Consent Obtained: verbal consent Time Out Performed: Yes Indication: laceration Site: face (Forehead) Size (cm): 3 Description: linear Depth: simple, single layer Pre-repair: wound explored, irrigated extensively Type of Sutures: other (Closed with Dermabond) Medical Decision Making - Medical Decision Making Patient reevaluated and updated. Concerned does exist regarding elevated troponin. Patient states he does have a heparin ALLERGY however is not completely clear why. Chart review does not document ALLERGY. Patient is unclear if he can take other blood thinners or not. Heparin will need to be held at this time. Cardiac enzymes will be redrawn an echo ordered. Cardiology will consult. Blood sugar will need to be further controlled. Case was discussed in detail with Dr. Ponce, who will admit for hospital call. - Lab Data Result diagrams: 09/18/16 09:49 09/18/16 09:49 Lab Results 09/18/16 09/18/16 09/18/16 Range/Units 09:49 09:49 09:49 WBC 11.0 H (3.8-10.6) k/uL RBC 3.81 L (4.30-5.90) m/uL Hgb 9.4 L (13.0-17.5) gm/dL Hct 32.0 L (39.0-53.0) % MCV 84.2 D (80.0-100.0) fL MCH 24.8 L (25.0-35.0) pg MCHC 29.5 L (31.0-37.0) g/dL RDW 17.1 H (11.5-15.5) % Plt Count 138 L (150-450) k/uL Neutrophils % 79 % Lymphocytes % 8 % Monocytes % 7 % Eosinophils % 2 % Basophils % 0 % Neutrophils # 8.7 H (1.3-7.7) k/uL Lymphocytes # 0.9 L (1.0-4.8) k/uL Monocytes # 0.8 (0-1.0) k/uL Eosinophils # 0.2 (0-0.7) k/uL Basophils # 0.0 (0-0.2) k/uL Hypochromasia Marked Poikilocytosis Moderate Anisocytosis Slight PT (9.0-12.0) sec INR (<1.1) APTT (22.0-30.0) sec Sodium 132 L (137-145) mmol/L Potassium 4.0 (3.5-5.1) mmol/L Chloride 99 (98-107) mmol/L Carbon Dioxide 24 (22-30) mmol/L Anion Gap 9 mmol/L BUN 27 H (9-20) mg/dL Creatinine 1.20 (0.66-1.25) mg/dL Est GFR (MDRD) Af Amer >60 (>60 ml/min/1.73 sqM) Est GFR (MDRD) Non-Af 60 (>60 ml/min/1.73 sqM) Glucose 489 H* (74-99) mg/dL POC Glucose (mg/dL) (75-99) mg/dL POC Glu [employer] Wafers Tester ID Calcium 8.0 L (8.4-10.2) mg/dL Phosphorus 3.0 (2.5-4.5) mg/dL Magnesium 1.6 (1.6-2.3) mg/dL Total Bilirubin 3.3 H (0.2-1.3) mg/dL AST 299 H (17-59) U/L ALT 152 H (21-72) U/L Alkaline Phosphatase 209 H (38-126) U/L CK-MB (CK-2) 20.4 H* (0.0-2.4) ng/mL Troponin I 0.271 H* (0.000-0.034) ng/mL Total Protein 4.6 L (6.3-8.2) g/dL Albumin 2.1 L (3.5-5.0) g/dL TSH 3.940 (0.465-4.680) mIU/L Acetone, Qual Negative (Negative) 09/18/16 09/18/16 Range/Units 09:49 10:20 WBC (3.8-10.6) k/uL RBC (4.30-5.90) m/uL Hgb (13.0-17.5) gm/dL Hct (39.0-53.0) % MCV (80.0-100.0) fL MCH (25.0-35.0) pg MCHC (31.0-37.0) g/dL RDW (11.5-15.5) % Plt Count (150-450) k/uL Neutrophils % % Lymphocytes % % Monocytes % % Eosinophils % % Basophils % % Neutrophils # (1.3-7.7) k/uL Lymphocytes # (1.0-4.8) k/uL Monocytes # (0-1.0) k/uL Eosinophils # (0-0.7) k/uL Basophils # (0-0.2) k/uL Hypochromasia Poikilocytosis Anisocytosis PT 16.1 H (9.0-12.0) sec INR 1.7 (<1.1) APTT 27.7 (22.0-30.0) sec Sodium (137-145) mmol/L Potassium (3.5-5.1) mmol/L Chloride (98-107) mmol/L Carbon Dioxide (22-30) mmol/L Anion Gap mmol/L BUN (9-20) mg/dL Creatinine (0.66-1.25) mg/dL Est GFR (MDRD) Af Amer (>60 ml/min/1.73 sqM) Est GFR (MDRD) Non-Af (>60 ml/min/1.73 sqM) Glucose (74-99) mg/dL POC Glucose (mg/dL) 480 H (75-99) mg/dL POC Glu [employer] Tester ID Radha Mooney Calcium (8.4-10.2) mg/dL Phosphorus (2.5-4.5) mg/dL Magnesium (1.6-2.3) mg/dL Total Bilirubin (0.2-1.3) mg/dL AST (17-59) U/L ALT (21-72) U/L Alkaline Phosphatase (38-126) U/L CK-MB (CK-2) (0.0-2.4) ng/mL Troponin I (0.000-0.034) ng/mL Total Protein (6.3-8.2) g/dL Albumin (3.5-5.0) g/dL TSH (0.465-4.680) mIU/L Acetone, Qual (Negative) - Radiology Data Radiology results: report reviewed (Computed tomography scan of the brain shows no acute intercranial hemorrhage.), image reviewed (Two-view chest x-ray shows low lung volumes. Possible effusion/atelectasis/infiltrate. Suspect mild central vascular congestion.) Disposition Clinical Impression: Fall, Forehead laceration, General weakness, Elevated troponin Disposition: ADMITTED IP TO THIS [facility] Condition: Serious
[2016-09-18 10:07] LABS: Anisocytosis Slight; Basophils % (A) 0 %; CHCM 28.6; Eosinophils # (A) 0.2 k/uL (0-0.7); Eosinophils % (A) 2 %; HDW 4.46; HGB 9.4 gm/dL (13.0-17.5); Hypochromasia Marked; Luc # (Auto) 0.39; Luc % (Auto) 4; Lymphocytes # (A) 0.9 k/uL (1.0-4.8); Lymphocytes % (A) 8 %; MCH 24.8 pg (25.0-35.0); MCHC 29.5 g/dL (31.0-37.0); Monocytes # (A) 0.8 k/uL (0-1.0); Monocytes % (A) 7 %; Neutrophils # (A) 8.7 k/uL (1.3-7.7); Neutrophils % (A) 79 %; Poikilocytosis Moderate; RBC 3.81 m/uL (4.30-5.90); RDW 17.1 % (11.5-15.5)
[2016-09-18 10:16] LABS: INR 1.7 (<1.1); Partial Thromboplastin Time 27.7 sec (22.0-30.0); Prothrombin Time 16.1 sec (9.0-12.0)
[2016-09-18 10:17] LABS: ALT 152 U/L (21-72); AST 299 U/L (17-59); Alkaline Phosphatase 209 U/L (38-126); Anion Gap 9 mmol/L; Blood Urea Nitrogen 27 mg/dL (9-20); Carbon Dioxide 24 mmol/L (22-30); Chloride 99 mmol/L (98-107); MCV 84.2 fL (80.0-100.0); Magnesium 1.6 mg/dL (1.6-2.3); Non-African American GFR(MDRD) 60 (>60 ml/min/1.73 sqM); Sodium 132 mmol/L (137-145); Total Bilirubin 3.3 mg/dL (0.2-1.3); Total Protein 4.6 g/dL (6.3-8.2)
[2016-09-18 10:22] LABS: Glucose,Whole Blood 480 mg/dL (75-99)
[2016-09-18 10:31] LABS: Glucose 489 mg/dL (74-99)
[2016-09-18 10:46] LABS: Creatine Kinase MB 20.4 ng/mL (0.0-2.4); Troponin I 0.271 ng/mL (0.000-0.034)
--- NOTE | 2016-09-18 10:53 | XR ---
EXAMINATION TYPE: XR chest 2V DATE OF EXAM: 09/18/2016 10:49 AM COMPARISON: Chest x-ray July 28, 2016 HISTORY: Weakness. TECHNIQUE: Frontal and lateral views of the chest are obtained. FINDINGS: The cardiac silhouette size is stable and upper limits of normal. The osseous structures are intact. There is persistent low lung volumes. Increasing bibasilar opacity consistent with infil trate and/or atelectasis with suspected small right pleural effusion. Suspect new mild central vascul ar congestion. IMPRESSION: Low lung volumes redemonstrated. There is bibasilar infiltrate and/or atelectasis with s mall right pleural effusion seen all more prominent than prior study. Suspect new mild central vascul ar congestion.
--- NOTE | 2016-09-18 10:56 | CT ---
EXAMINATION TYPE: CT brain wo con DATE OF EXAM: 09/18/2016 10:50 AM COMPARISON: NONE HISTORY: Fall and hit rt frontal region CT DLP: 1085 mGycm Automated exposure control for dose reduction was used. FINDINGS: There is no acute intracranial hemorrhage, mass effect, or midline shift identified. The ventricles and sulci are within normal limits in size. The globes are intact and the visualized sinuses are lizette ar. IMPRESSION: No acute intracranial hemorrhage, mass effect, or midline shift is seen.
[2016-09-18] MEDS ORDERED: NITROGLYCERIN SL TABS 0.4 MG TAB SUBLINGUAL PRN (11:13)
[2016-09-18] MEDS ORDERED: ASPIRIN 81 MG CHEW PO STA (11:13)
[2016-09-18] MEDS ORDERED: NITROGLYCERIN OINT 1 INCH/GM PACKET TOPICAL SCH (12:00)
[2016-09-18 12:13] LABS: Appearance,Urine Cloudy (Clear); Bacteria,Urine Rare /hpf; Bilirubin,Urine Negative (Negative); Glucose,Urine (UA) 4+ (Negative); Granular Casts,Urine 10 /lpf (0); Ketones,Urine Negative (Negative); Leukocyte Esterase,Urine Negative (Negative); Mucus,Urine Rare /hpf; Nitrite,Urine Negative (Negative); PH, Urine 5.5 (5.0-8.0); Particle Count 3927; Protein,Urine 1+ (Negative); RBC,Urine 2 /hpf (0-5); Specific Gravity,Urine 1.008 (1.001-1.035); UA Billing (MACRO vs. MICRO) MICRO; WBC,Urine 9 /hpf (0-5)
--- NOTE | 2016-09-18 12:49 | ECHOF ---
Referral Reason:Elevated troponin weakness MEASUREMENTS -------- HEIGHT: 165.1 cm WEIGHT: 98.0 kg BP: 140/60 IVSd: 1.2 cm (0.6 - 1.1) LVIDd: 4.6 cm (3.9 - 5.3) LVPWd: 0.9 cm (0.6 - 1.1) IVSs: 1.3 cm LVIDs: 4.2 cm LVPWs: 1.1 cm LA Diam: 4.8 cm (2.7 - 3.8) LAESV Index (A-L): 26.60 ml/m Ao Diam: 3.3 cm (2.0 - 3.7) AV Cusp: 1.8 cm (1.5 - 2.6) LA Diam: 4.9 cm (2.7 - 3.8) MV EXCURSION: 15.965 mm (> 18.000) MV EF SLOPE: 42 mm/s (70 - 150) EPSS: 1.7 cm MV E Jhonathan: 0.75 m/s MV DecT: 194 ms MV A Jhonathan: 0.80 m/s MV E/A Ratio: 0.93 RAP: 5.00 mmHg RVSP: 35.92 mmHg FINDINGS -------- Sinus rhythm. This was a technically adequate study. There is mild concentric left ventricular hypertrophy. There is severe global hypokinesis of LV . Overall left ventricular systolic function is severely impaired with, an EF < 20%. The right ventricle is normal in size. The left atrium is moderately dilated. The right atrial size is normal. There is mild aortic valve sclerosis. There is no evidence of aortic regurgitation. Mild mitral annular calcification present. Mild mitral regurgitation is present. Mild tricuspid regurgitation present. There is mild pulmonary hypertension. The right ventricular systolic pressure, as measured by Doppler, is 35.92mmHg. There is no pulmonic regurgitation present. The aortic root size is normal. There is no pericardial effusion. CONCLUSIONS -------- 1. There is mild concentric left ventricular hypertrophy. 2. The right ventricular systolic pressure, as measured by Doppler, is 35.92mmHg. 3. There is severe global hypokinesis of LV . 4. Overall left ventricular systolic function is severely impaired with, an EF < 20%. 5. The left atrium is moderately dilated. 6. There is mild aortic valve sclerosis. 7. Mild mitral annular calcification present. 8. Mild mitral regurgitation is present. 9. Mild tricuspid regurgitation present. 10. There is mild pulmonary hypertension. TYPEWRITER ASSEMBLY AND PARTS INSPECTOR: Jessy Barrett RDCS
[2016-09-18 13:08] LABS: Glucose,Whole Blood 486 mg/dL (75-99)
[2016-09-18] MEDS: INSULIN LISPRO (humaLOG) 300 UNIT/3 ML VIAL SQ SCH ×2 (13:16→17:15)
--- NOTE | 2016-09-18 14:23 | CONS ---
DATE OF CONSULTATION: CHIEF COMPLAINT: Fatigue, tiredness, and fall. Mr. Tse is a 70-year-old gentleman with extensive history including hepatocellular carcinoma, status post chemotherapy, hypertension, diabetes, dyslipidemia, hypothyroidism, coronary artery disease, status post angioplasty, ischemic cardiomyopathy who follows with a food vendor in [facility], has physicians in the [facility] system comes in primarily complaining of fatigue, tiredness, and not feeling well. He fell and had mild laceration over the face. Patient has had complex problems including thrombocytopenia, anemia and gastrointestinal bleed. The patient has a history of intolerance to heparin. Not quite sure what it is from. I have been asked to see him in the ER because of mild elevation in his troponin. The patient's EKG shows junctional bradycardia. He does not have any pauses an echocardiogram showed severe LV systolic dysfunction with an ejection fraction less than 20%. Patient is not a candidate for anticoagulation for elevated troponin due to history of GI bleed, thrombocytopenia, and history of ALLERGY TO HEPARIN. Past medical history is significant for [id number] diabetes, hypertension, and hypothyroidism and dyslipidemia. Current medications include: 1. Aspirin. 2. Plavix. 3. Lipitor. 4. Insulin. 5. Levoxyl. 6. Zestril. 7. Magnesium. 8. Omeprazole. 9. Lyrica. 10. Inderal XL. 11. Glucotrol. 12. Metformin. ALLERGIC TO CODEINE, HEPARIN AND NOVOCAINE. FAMILY HISTORY: Negative for premature coronary artery disease. SOCIAL HISTORY: Negative for smoking, ETOH abuse or drug abuse. REVIEW OF SYSTEMS: HEENT: Unremarkable. CARDIAC: As described above. RESPIRATORY: Negative. GI: Significant for hepatocellular carcinoma and distended abdomen. Gastrointestinal bleed. History of varices, history of banding. GENITOURINARY: Negative. Allergy/immunology: Negative. SKIN: Negative. MUSCULOSKELETAL: Significant for arthritis. PSYCHOSOCIAL: Negative. The rest of the system review is not relevant. On exam, patient is comfortable at rest. Heart rate is 76 beats a minute, blood pressure is 86/57, respirations 18, O2 sat is 94%. There is no jugular venous distention. Chest exam reveals diminished air entry at the bases. Heart exam reveals first and second heart sounds. No gallop. CONTENT DESIGNER exam did not reveal focal neurological deficits. Chest exam shows good air entry bilaterally. Heart exam reveals first and second heart sounds. No gallop. Exam of the extremities did not reveal any edema. Peripheral pulses are palpable. Labs show a hemoglobin of 9.4, platelet count is 138. INR is elevated at 1.7. ASSESSMENT: 1. Troponin elevation probably secondary to non-ST segment elevation myocardial infarction. 2. History of gastrointestinal bleed. 3. Hepatocellular carcinoma. 4. Coagulopathy. 5. Asymptomatic bradycardia. PLAN: Patient's prognosis is guarded. Does not require further evaluation at this time.
[2016-09-18 15:13] LABS: Glucose,Whole Blood 443 mg/dL (75-99)
[2016-09-18] MEDS ORDERED: INSULIN LISPRO (humaLOG) 300 UNIT/3 ML VIAL SQ ONE (15:15)
[2016-09-18 15:21] LABS: Hemoglobin A1C 10.7 % (4.2-6.1)
[2016-09-18 17:08] LABS: Glucose,Whole Blood 383 mg/dL (75-99)
[2016-09-18 17:35] LABS: Creatine Kinase MB 19.1 ng/mL (0.0-2.4); Troponin I 1.87 ng/mL (0.000-0.034)
[2016-09-18] MEDS ORDERED: FLUTICASONE 50MCG/SPRAY NASAL 16GM EA NOSTRIL PRN (18:57)
[2016-09-18] MEDS ORDERED: INSULIN REGULAR BOLUS (FROM DRIP BAG) IV PRN ×2 (19:04→20:34)
[2016-09-18 19:43] LABS: Glucose,Whole Blood 321 mg/dL (75-99)
[2016-09-18] MEDS ORDERED: INSULIN REGULAR 100 UNIT in SODIUM CHLORIDE 0.9% 100 ML IV SCH (20:45)
[2016-09-18 21:15] LABS: Glucose,Whole Blood 326 mg/dL (75-99)
[2016-09-18] MEDS: MAGNESIUM OXIDE 400 MG TAB PO SCH (21:32)
[2016-09-18] MEDS: PANTOPRAZOLE 40 MG TABLET PO SCH (21:32)
[2016-09-18] MEDS: SYMBICORT 160-4.5 MCG INHALER INHALATION SCH (21:51)
[2016-09-18 22:34] LABS: Glucose,Whole Blood 284 mg/dL (75-99)
[2016-09-18 22:45] LABS: Creatine Kinase MB 15.1 ng/mL (0.0-2.4)
[2016-09-18 22:46] LABS: Troponin I 2.25 ng/mL (0.000-0.034)
[2016-09-18 23:27] LABS: Glucose,Whole Blood 258 mg/dL (75-99)
[2016-09-18] MEDS ORDERED: DOBUTamine DRIP 500 MG in DEXTROSE/WATER 1 250ML.BAG IV SCH (23:45)
[2016-09-18] MEDS ORDERED: DOPamine DRIP 800 MG in DEXTROSE/WATER 1 500ML.BAG IV SCH (23:45)
[2016-09-19 00:24] LABS: Glucose,Whole Blood 206 mg/dL (75-99)
[2016-09-19] MEDS ORDERED: SODIUM CHLORIDE 0.9% 1,000 ML IV ONE (00:50)
[2016-09-19] MEDS: PIPERACILLIN-TAZOBACTAM 3.375 GM in DEXTROSE/WATER 1 50ML.BAG IVPB SCH ×3 (00:57→15:29)
[2016-09-19] MEDS: SODIUM CHLORIDE 0.9% 1,000 ML IV ONE (00:58)
[2016-09-19 01:29] LABS: Glucose,Whole Blood 168 mg/dL (75-99)
[2016-09-19 02:25] LABS: Glucose,Whole Blood 166 mg/dL (75-99)
[2016-09-19 03:48] LABS: Glucose,Whole Blood 176 mg/dL (75-99)
[2016-09-19 04:05] LABS: Hemoglobin A1C 10.5 % (4.2-6.1)
[2016-09-19 04:38] LABS: Glucose,Whole Blood 175 mg/dL (75-99)
[2016-09-19 05:46] LABS: Glucose,Whole Blood 166 mg/dL (75-99)
[2016-09-19 06:29] LABS: Glucose,Whole Blood 166 mg/dL (75-99)
[2016-09-19] MEDS: LEVOTHYROXINE 125 MCG TAB PO SCH (06:39)
[2016-09-19] MEDS: NOREPINEPHRINE 4 MG in SODIUM CHLORIDE 0.9% 250 ML IV SCH (06:39)
[2016-09-19 07:09] LABS: INR 1.7 (<1.1); Prothrombin Time 16.5 sec (9.0-12.0)
[2016-09-19 07:15] LABS: Glucose,Whole Blood 154 mg/dL (75-99)
--- NOTE | 2016-09-19 07:16 | XR ---
EXAMINATION TYPE: XR chest 1V DATE OF EXAM: 09/19/2016 6:53 AM COMPARISON: 09/18/2016 HISTORY: 70 year-old male shortness of breath TECHNIQUE: Single frontal view of the chest is obtained. FINDINGS: Heart upper limits of normal in size. Low lung volumes persist with crowded vascular markings. Some i nterval improvement made in aeration at the lung bases with some residual patchy right basilar opacit y and trace pleural effusion. A coronary stent is visualized. IMPRESSION: Persistent but slightly improved pulmonary vascular congestion and bibasilar aeration. Some residual patchy edema/infiltrate or atelectasis remains at the right base. Improved, now trace right pleural e ffusion also noted.
[2016-09-19 07:32] LABS: ALT 134 U/L (21-72); AST 261 U/L (17-59); Alkaline Phosphatase 140 U/L (38-126); Anion Gap 7 mmol/L; Anisocytosis Slight; Aty Lym Flag Slight; Blood Urea Nitrogen 31 mg/dL (9-20); CH 23.7; CHCM 28.4; Calcium 7.8 mg/dL (8.4-10.2); Carbon Dioxide 24 mmol/L (22-30); Chloride 103 mmol/L (98-107); Cholesterol <50 mg/dL (<200); Glucose 143 mg/dL (74-99); HCT 26.3 % (39.0-53.0); HDL Cholesterol 17 mg/dL (40-60); HDW 4.53; HGB 7.8 gm/dL (13.0-17.5); Hypochromasia Marked; MCH 24.7 pg (25.0-35.0); MCHC 29.5 g/dL (31.0-37.0); MCV 83.7 fL (80.0-100.0); Magnesium 1.6 mg/dL (1.6-2.3); Mean Platelet Volume 8.2; Non-African American GFR(MDRD) 48 (>60 ml/min/1.73 sqM); Phosphorous 2.6 mg/dL (2.5-4.5); Poikilocytosis Moderate; Potassium 3.7 mmol/L (3.5-5.1); RBC 3.15 m/uL (4.30-5.90); Sodium 134 mmol/L (137-145); Total Bilirubin 2.5 mg/dL (0.2-1.3); Total Protein 4.2 g/dL (6.3-8.2); Triglycerides 69 mg/dL (<150); WBC 4.5 k/uL (3.8-10.6); WBC (Perox) 4.44
[2016-09-19 07:42] LABS: Add Differential Manual Differential
[2016-09-19 07:44] LABS: Manual Review Performed; Nucleated Red Blood Cells 0 /100 WBC (0-0); Total Cells Counted 100
[2016-09-19 07:58] LABS: Glucose,Whole Blood 145 mg/dL (75-99)
[2016-09-19] MEDS ORDERED: Magnesium Replacement Protocol 1 EACH MISC MISCELLANE PRN (08:15)
[2016-09-19] MEDS ORDERED: Potassium Replacement Protocol 1 EACH MISC MISCELLANE PRN ×2 (08:15→13:03)
[2016-09-19] MEDS ORDERED: FUROSEMIDE 10 MG/ML 2 ML VIAL IV ONE (08:35)
[2016-09-19] MEDS: PANTOPRAZOLE 40 MG TABLET PO SCH ×2 (08:36→17:36)
[2016-09-19] MEDS: PREGABALIN 50 MG CAP PO SCH (08:37)
[2016-09-19] MEDS: ASPIRIN 81 MG CHEW PO SCH (08:37)
[2016-09-19] MEDS: MAGNESIUM OXIDE 400 MG TAB PO SCH ×4 (08:37→20:57)
[2016-09-19] MEDS ORDERED: ASPIRIN 325 MG TAB PO SCH (09:00)
[2016-09-19] MEDS ORDERED: POTASSIUM CHLORIDE ER 20 MEQ TAB.ER PO SCH ×2 (09:00→14:00)
[2016-09-19] MEDS: MAGNESIUM SULFATE-D5W PMX 1 GM in DEXTROSE/WATER 1 100ML.BAG IVPB SCH ×2 (09:03→09:51)
[2016-09-19] MEDS: SYMBICORT 160-4.5 MCG INHALER INHALATION SCH ×2 (09:31→20:09)
[2016-09-19 10:03] LABS: Glucose,Whole Blood 230 mg/dL (75-99)
--- NOTE | 2016-09-19 10:54 | HP ---
DATE OF ADMISSION: 09/18/2016 CHIEF COMPLAINT: Weakness. HISTORY OF PRESENT ILLNESS: This 70-year-old gentleman with past medical history of CAD, history of congestive heart failure, diabetes, hypertension, hyperlipidemia, history of myocardial infarction, liver disease, history of gastrointestinal bleed, history of esophageal varices banding, history of liver hepatocellular carcinoma apparently with chemotherapy, history of CAD/stent and multiple complex medical issues is being followed by apparently with the [place] system and also seen Sarita multiple times and the patient also has a pediatric cardiologist in the [facility]. The patient is apparently admitted with complaints of generalized weakness and tiredness and some shortness of breath. Patient apparently fell yesterday at home and the patient was taken to [facility] and admitted for evaluation. Troponins were elevated indicating acute non-ST segment elevation myocardial infarction. Cardiology evaluation in progress. There is no history of fever, rigors or chills. No history of hemoptysis, hematochezia or melena at this time. On admission, the patient had a CAT scan of the brain, which showed no acute abnormality. Patient also had a chest x-ray which showed bibasilar infiltrate or atelectasis, which I reviewed personally and the patient also had EKG which showed junctional rhythm and the patient admitted to the hospital for further evaluation and treatment. There is no history of fever, rigors or chills. No history of headache, loss of consciousness or seizures. Past medical history of hepatocellular carcinoma, history of congestive heart failure, history of diabetes mellitus , hypertension, hyperlipidemia, history of myocardial infarction, history of coronary artery disease and stent. Medications prior to admission include home medications are: 1. Mag 64/250 p.o. daily. 2. Glucovance 1000 mg daily. 3. Glucotrol 10 mg b.i.d. 5. Lyrica 50 mg daily. 6. Nitrostat 0.5 q5h p.r.n. 7. Flonase 2 sprays daily p.r.n. 8. Aldactone 50 mg daily. 9. Propranolol 20 mg p.o. b.i.d. 10. Omeprazole 20 mg b.i.d. 11. Claritin 10 mg p.o. daily. 12. Levoxyl 125 mcg p.o. daily. 13. Imdur 30 mg daily. 14. NovoLog 10 units a.c. t.i.d. 15. Lantus 10 units subcu q.h.s. 16. Lasix 20 mg p.o. daily. 17. Iron sulfate 320 mg b.i.d. 18. Symbicort 160/4.5 2 puffs b.i.d. 19. Lipitor 80 mg at bedtime. 20. Adult Aspirin 81 mg p.o. daily. ALLERGIES: CODEINE, HEPARIN AND PROCAINE. FAMILY HISTORY: History of myocardial infarction in the family. SOCIAL HISTORY: Previous history of smoking. No history of current smoking. No alcohol intake. REVIEW OF SYSTEMS: ENT: Diminished hearing, diminished vision. CARDIOVASCULAR: As mentioned earlier. RESPIRATORY: As mentioned earlier. GASTROINTESTINAL: As mentioned earlier. : No dysuria. Nervous system: As mentioned earlier. ALLERGY/IMMUNOLOGY: No asthma or hayfever. Musculoskeletal as mentioned earlier. HEMATOLOGY/ONCOLOGY: As mentioned earlier. ENDOCRINE: As mentioned earlier. CONSTITUTIONAL: As mentioned earlier. DERMATOLOGY: Negative. RHEUMATOLOGY: Negative. PSYCHIATRY: As mentioned earlier. PHYSICAL EXAMINATION: Alert and oriented x3. Pulse 75, blood pressure 87/53, respirations 16, temperature 97.4, pulse ox is 98% on 2 L. HEENT: Conjunctivae normal. Oral mucosa moist. NECK: No jugular venous distention. No carotid bruit. No lymph node enlargement. CARDIOVASCULAR: S1 and S2. No S3, no S4. RESPIRATORY: Breath sounds diminished at the bases, bilateral scattered rhonchi and crackles. ABDOMEN: Soft, nontender. No mass palpable. Legs: No edema. No swelling. Nervous system: Higher functions as mentioned. Moves all 4 limbs. No focal deficits. LYMPHATICS: No lymph nodes palpable in neck, axilla or groin. SKIN: No ulcer, rash or bleeding . LABS: WBC 11, hemoglobin is 9.4 and platelets 138. INR is 1.7, glucose 489. Total bilirubin 3.8, AST 299, and ALT is 152, troponin 1.870. ASSESSMENT: 1. Acute non-ST segment elevation myocardial infarction, with troponin 1.870. 2. Possible cardiac shock, multifactorial. 3. Increased bilirubin and, AST, ALT secondary to hepatosplenomegaly. 4. Increased creatinine kinase. 5. Diabetes mellitus type 2, uncontrolled. 6. Hyponatremia. 7. Increased WBC. Possible sepsis. 8. Anemia, normocytic. 9. Thrombocytopenia. 10. History of hepatocellular carcinoma. 11. History of coronary artery disease. 12. History of congestive heart failure. 13. History of diabetes mellitus type 2. 14. Hypertension. 15. Hyperlipidemia. 16. History of hypothyroidism. 17. History of coronary artery disease and stent 18. Gait dysfunction. 19. FULL CODE. RECOMMENDATIONS AND DISCUSSION: In this 70-year-old gentleman who presented with multiple complex medical issues, we will monitor the patient closely. Continue with current medications, continue symptomatic treatment. I will recommend aspirin, beta blockers cannot be given because of hypotension. We will adjust the medications. I would also recommend transfer to ICU and continue to monitor closely with Cardiology. I would also recommend consult Dr. Gibbs and Further recommendations to follow. VALENTIND
[2016-09-19 11:03] LABS: Glucose,Whole Blood 258 mg/dL (75-99)
[2016-09-19] MEDS: SPIRONOLACTONE 25 MG TAB PO SCH (11:08)
--- NOTE | 2016-09-19 11:27 | P.CNPUL ---
History of Present Illness Consult date: 09/19/16 Requesting physician: Flavio Ponce Chief complaint: Weakness History of present illness: This is a 70-year-old white male with history of coronary artery disease and severe ischemic cardiomyopathy, chronic congestive heart failure, diabetes, hypertension, hepatocellular carcinoma involving the liver, history of portal hypertension and esophageal varices requiring banding, patient usually follows at the [facility] for his cardiac issues. And he sees a treatment manager in the [facility] area. Patient was admitted this time with mostly multiple complaints including generalized weakness, fatigue, some shortness of breath. His troponins were noted to be elevated, and he was noted to have a non-ST segment elevation myocardial infarction. He was seen by cardiology, but he was not felt to be a candidate for much intervention. Patient was admitted, but because of low blood pressure while he was on the cardiac floor, patient was transferred to the ICU, and I was asked to see him on consultation. Patient was initially placed on Dobutrex, did not seem to help his blood pressure much, hence I discontinued Dobutrex and place him on norepinephrine and he is presently on 8 g of norepinephrine. Blood pressure seems to be better, urine output is improved with improvement of the blood pressure, and his chest x-ray showed mild congestive changes hence I gave the patient a dose of Lasix earlier today. Patient is not in any form of distress, but requiring levo fed to maintain adequate blood pressure. Patient denies any fever chills, no headaches no blurred vision no dizziness, no chest pain. He feels generally weak. Review of Systems 14 point review of systems were obtained, please refer to pertinent positives and negatives in HPI Past Medical History Past Medical History: Coronary Artery Disease (CAD), Cancer, Chest Pain / Angina , Heart Failure, Diabetes Mellitus, Hyperlipidemia, Hypertension, Liver Disease , Myocardial Infarction (ID), Thyroid Disorder Additional Past Medical History / Comment(s): Pt admitted to [facility] 07/27/16 with GI bleed. He transferred to [facility] in [place] and was found to have esophageal varices with were banded. Other hx: 10/2015 liver cancer was treated in [place] with chemo directly into a couple of the tumors and "burning" of the other tumors, IDDM type II, acute/chronic anemia, blood loss anemia, hypothyroid, hypomagnesium. Last Myocardial Infarction Date:: 1997 History of Any Multi-Drug Resistant Organisms: None Reported Past Surgical History: Heart Catheterization With Stent, Hernia Repair Additional Past Surgical History / Comment(s): 07/2016 esophageal varicies banded at [facility] in [place], sinus surgery, liver surgery at [place], cardiac stenting x7-8, EGD/colonoscopy, L inguinal hernia surgery. Past Anesthesia/Blood Transfusion Reactions: No Reported Reaction Date of Last Stent Placement:: 08/2015 Past Psychological History: No Psychological Hx Reported Additional Psychological History / Comment(s): Pt currently is staying with his nephew. He uses no assistive device. He is not currently driving d/t health problems. Smoking Status: Former smoker Past Alcohol Use History: None Reported Additional Past Alcohol Use History / Comment(s): Pt states he quit smoking in 1994. Past Drug Use History: None Reported - Past Family History Mother Family Medical History: Myocardial Infarction (ID) Additional Family Medical History / Comment(s): Mother had a ID at the age of 55yrs and then of a ID at the age of 57yrs. Father Family Medical History: CVA/TIA Additional Family Medical History / Comment(s): Father had a endartectomy and during which he had a CVA and . He was 81 yrs old. Medications and Allergies Home Medications Medication Instructions Recorded Confirmed Type Aspirin [Adult Low Dose Aspirin EC] 81 mg PO DAILY 10/23/15 09/18/16 History Atorvastatin [Lipitor] 80 mg PO HS 10/23/15 09/18/16 History Levothyroxine Sodium [Levoxyl] 125 mcg PO DAILY 10/23/15 09/18/16 History Nitroglycerin Sl Tabs [Nitrostat] 0.4 mg SUBLINGUAL Q5M PRN 10/23/15 09/18/16 History Omeprazole 20 mg PO BID 10/23/15 09/18/16 History Budesonide-Formot 160-4.5 Mcg 2 puff INHALATION RT-BID 09/18/16 09/18/16 History [Symbicort 160-4.5 Mcg Inhaler] Ferrous Sulfate [Feosol] 325 mg PO BID 09/18/16 09/18/16 History Fluticasone Nasal [place] [Flonase 2 spr EA NOSTRIL DAILY PRN 09/18/16 09/18/16 History Nasal [place]] Furosemide [Lasix] 20 mg PO DAILY 09/18/16 09/18/16 History Insulin Aspart [NovoLOG Flexpen] 10 units SQ AC-TID 09/18/16 09/18/16 History Insulin Glargine,Hum.rec.anlog 10 unit SQ HS 09/18/16 09/18/16 History [Lantus Solostar] Isosorbide Mononitrate ER [Imdur] 30 mg PO DAILY 09/18/16 09/18/16 History Loratadine [Claritin] 10 mg PO DAILY 09/18/16 09/18/16 History Magnesium Chloride [Mag64] 256 mg PO QID 09/18/16 09/18/16 History Pregabalin [Lyrica] 50 mg PO DAILY 09/18/16 09/18/16 History Propranolol HCl 20 mg PO BID 09/18/16 09/18/16 History Saxagliptin HCl [Onglyza] 5 mg PO DAILY 09/18/16 09/18/16 History Spironolactone [Aldactone] 50 mg PO DAILY 09/18/16 09/18/16 History glipiZIDE [Glucotrol] 10 mg PO AC-BID 09/18/16 09/18/16 History metFORMIN HCL [Glucophage] 1,000 mg PO BID 09/18/16 09/18/16 History Allergies Allergy/AdvReac Type Severity Reaction Status Date / Time codeine Allergy Unknown Verified 07/27/16 02:27 Childhood heparin Allergy Unknown Verified 07/27/16 02:27 procaine HCl [From Novocain] Allergy Unknown Verified 07/27/16 02:27 Physical Exam Vitals: Vital Signs Temp Pulse Pulse Resp BP BP BP 09/19/16 11:00 75 16 91/60 09/19/16 10:00 78 21 76/49 09/19/16 09:00 80 17 111/67 09/19/16 08:00 97.6 F 71 15 100/63 09/19/16 07:00 69 15 77/53 09/19/16 06:00 77 9 L 82/46 09/19/16 05:00 75 15 71/47 09/19/16 04:00 98.0 F 80 18 88/60 09/19/16 03:00 79 12 77/52 09/19/16 02:00 76 21 83/54 09/19/16 01:00 74 10 L 80/52 09/19/16 00:00 98.2 F 70 22 76/54 09/18/16 23:39 70 33 H 74/60 09/18/16 23:00 69 20 79/56 09/18/16 22:00 69 20 74/52 09/18/16 21:00 72 18 77/51 09/18/16 20:05 20 09/18/16 20:00 97.8 F 70 21 78/56 09/18/16 19:55 71 23 78/56 09/18/16 15:37 97.4 F L 75 16 87/53 88/58 09/18/16 13:09 76 86/57 09/18/16 12:39 62 82/57 09/18/16 11:54 54 L 96/65 Pulse Ox 09/19/16 11:00 94 L 09/19/16 10:00 94 L 09/19/16 09:00 96 09/19/16 08:00 93 L 09/19/16 07:00 94 L 09/19/16 06:00 95 09/19/16 05:00 95 09/19/16 04:00 95 09/19/16 03:00 92 L 09/19/16 02:00 94 L 09/19/16 01:00 93 L 09/19/16 00:00 92 L 09/18/16 23:39 94 L 09/18/16 23:00 94 L 09/18/16 22:00 93 L 09/18/16 21:00 94 L 09/18/16 20:05 09/18/16 20:00 93 L 09/18/16 19:55 92 L 09/18/16 15:37 98 09/18/16 13:09 94 L 09/18/16 12:39 98 09/18/16 11:54 98 Intake and Output 09/18/16 09/19/16 09/19/16 22:59 06:59 14:59 Intake Total 276.619 614.695 487.292 Output Total 0 450 320 Balance 276.619 164.695 167.292 Intake: IV 150 600 95 Sodium Chloride 0.9% 1, 150 600 95 000 ml @ 75 mls/hr IV . [id number] STA Rx#:[id number] Intake, IV Titration 8.619 14.695 392.292 Amount Insulin Regular 100 unit 8.619 14.695 15.927 In Sodium Chloride 0.9% 100 ml @ Per Protocol IV .Q0M MAC Rx#:[id number] Magnesium Sulfate-D5w Pmx 200 1 gm In Dextrose/Water 1 100ml.bag @ 100 mls/hr IVPB Q1H MAC Rx#: [id number] Norepinephrine 4 mg In 126.365 Sodium Chloride 0.9% 250 ml @ Titrate IV .Q0M MAC Rx#:[id number] Piperacillin-Tazobactam 3 50.0 .375 gm In Dextrose/Water 1 50ml.bag @ 12.5 mls/hr IVPB Q8HR MAC Rx#: [id number] Oral 118 Output: Urine 0 450 320 Other: Voiding Method Urinal Urinal Indwelling Catheter Weight 100.6 kg 100.6 kg Patient Weight 09/20/16 06:59 Weight 100.6 kg Physical Exam: Revealed a 70-year-old white male in no distress HEENT:[Neck is supple.] [No neck masses.] [No thyromegaly.] [No JVD.] Chest: [Minimal fine crackles at the bases, no rhonchi, no wheezes] Cardiac Exam: [Normal S1 and S2, no S3 gallop, no murmur.] Abdomen: [Soft, nontender, no megaly, no rebound, no guarding, normal bowel sounds.] Extremities: [No clubbing, no edema, no cyanosis.] Neurological Exam: [No focal neurologic deficit.] Results - Laboratory Findings CBC and BMP: 09/19/16 06:37 09/19/16 06:37 PT/INR, D-dimer PT 16.5 sec (9.0-12.0) H 09/19/16 06:37 INR 1.7 (<1.1) 09/19/16 06:37 Abnormal lab findings: Abnormal Labs 09/18/16 09/18/16 09/18/16 11:53 13:06 15:12 RBC Hgb Hct MCH MCHC RDW Plt Count Lymphocytes # (Manual) PT Sodium BUN Creatinine Glucose POC Glucose (mg/dL) 486 H 443 H Hemoglobin A1c Plasma Lactic Acid Ronal Calcium Total Bilirubin AST ALT Alkaline Phosphatase Total Creatine Kinase CK-MB (CK-2) Troponin I Total Protein Albumin HDL Cholesterol Urine Protein 1+ H Urine Glucose (UA) 4+ H Urine Blood Large H Urine WBC 9 H Urine Bacteria Rare H Urine Mucus Rare H 09/18/16 09/18/16 09/18/16 16:30 17:07 19:35 RBC Hgb Hct MCH MCHC RDW Plt Count Lymphocytes # (Manual) PT Sodium BUN Creatinine Glucose POC Glucose (mg/dL) 383 H 321 H Hemoglobin A1c Plasma Lactic Acid Ronal Calcium Total Bilirubin AST ALT Alkaline Phosphatase Total Creatine Kinase 5991 H CK-MB (CK-2) 19.1 H* Troponin I 1.870 H* Total Protein Albumin HDL Cholesterol Urine Protein Urine Glucose (UA) Urine Blood Urine WBC Urine Bacteria Urine Mucus 09/18/16 09/18/16 09/18/16 20:50 20:50 20:50 RBC Hgb Hct MCH MCHC RDW Plt Count Lymphocytes # (Manual) PT Sodium BUN Creatinine Glucose POC Glucose (mg/dL) Hemoglobin A1c 10.5 H Plasma Lactic Acid Ronal 3.6 H* Calcium Total Bilirubin AST ALT Alkaline Phosphatase Total Creatine Kinase 5524 H CK-MB (CK-2) 15.1 H* Troponin I 2.250 H* Total Protein Albumin HDL Cholesterol Urine Protein Urine Glucose (UA) Urine Blood Urine WBC Urine Bacteria Urine Mucus 09/18/16 09/18/16 09/18/16 21:14 22:33 23:25 RBC Hgb Hct MCH MCHC RDW Plt Count Lymphocytes # (Manual) PT Sodium BUN Creatinine Glucose POC Glucose (mg/dL) 326 H 284 H 258 H Hemoglobin A1c Plasma Lactic Acid Ronal Calcium Total Bilirubin AST ALT Alkaline Phosphatase Total Creatine Kinase CK-MB (CK-2) Troponin I Total Protein Albumin HDL Cholesterol Urine Protein Urine Glucose (UA) Urine Blood Urine WBC Urine Bacteria Urine Mucus 09/19/16 09/19/16 09/19/16 00:23 01:28 02:17 RBC Hgb Hct MCH MCHC RDW Plt Count Lymphocytes # (Manual) PT Sodium BUN Creatinine Glucose POC Glucose (mg/dL) 206 H 168 H Hemoglobin A1c Plasma Lactic Acid Ronal 2.7 H* Calcium Total Bilirubin AST ALT Alkaline Phosphatase Total Creatine Kinase CK-MB (CK-2) Troponin I Total Protein Albumin HDL Cholesterol Urine Protein Urine Glucose (UA) Urine Blood Urine WBC Urine Bacteria Urine Mucus 09/19/16 09/19/16 09/19/16 02:24 03:46 04:37 RBC Hgb Hct MCH MCHC RDW Plt Count Lymphocytes # (Manual) PT Sodium BUN Creatinine Glucose POC Glucose (mg/dL) 166 H 176 H 175 H Hemoglobin A1c Plasma Lactic Acid Ronal Calcium Total Bilirubin AST ALT Alkaline Phosphatase Total Creatine Kinase CK-MB (CK-2) Troponin I Total Protein Albumin HDL Cholesterol Urine Protein Urine Glucose (UA) Urine Blood Urine WBC Urine Bacteria Urine Mucus 09/19/16 09/19/16 09/19/16 05:45 06:27 06:37 RBC Hgb Hct MCH MCHC RDW Plt Count Lymphocytes # (Manual) PT Sodium 134 L BUN 31 H Creatinine 1.45 H Glucose 143 H POC Glucose (mg/dL) 166 H 166 H Hemoglobin A1c Plasma Lactic Acid Ronal Calcium 7.8 L Total Bilirubin 2.5 H AST 261 H ALT 134 H Alkaline Phosphatase 140 H Total Creatine Kinase CK-MB (CK-2) Troponin I Total Protein 4.2 L Albumin 1.8 L HDL Cholesterol 17 L Urine Protein Urine Glucose (UA) Urine Blood Urine WBC Urine Bacteria Urine Mucus 09/19/16 09/19/16 09/19/16 06:37 06:37 06:37 RBC 3.15 L Hgb 7.8 L D Hct 26.3 L MCH 24.7 L MCHC 29.5 L RDW 17.0 H Plt Count 59 L D Lymphocytes # (Manual) 0.8 L PT 16.5 H Sodium BUN Creatinine Glucose POC Glucose (mg/dL) Hemoglobin A1c Plasma Lactic Acid Ronal Calcium Total Bilirubin AST ALT Alkaline Phosphatase Total Creatine Kinase CK-MB (CK-2) Troponin I 2.100 H* Total Protein Albumin HDL Cholesterol Urine Protein Urine Glucose (UA) Urine Blood Urine WBC Urine Bacteria Urine Mucus 09/19/16 09/19/16 09/19/16 06:37 07:13 07:57 RBC Hgb Hct MCH MCHC RDW Plt Count Lymphocytes # (Manual) PT Sodium BUN Creatinine Glucose POC Glucose (mg/dL) 154 H 145 H Hemoglobin A1c Plasma Lactic Acid Ronal 2.3 H* Calcium Total Bilirubin AST ALT Alkaline Phosphatase Total Creatine Kinase CK-MB (CK-2) Troponin I Total Protein Albumin HDL Cholesterol Urine Protein Urine Glucose (UA) Urine Blood Urine WBC Urine Bacteria Urine Mucus 09/19/16 09/19/16 10:02 11:01 RBC Hgb Hct MCH MCHC RDW Plt Count Lymphocytes # (Manual) PT Sodium BUN Creatinine Glucose POC Glucose (mg/dL) 230 H 258 H Hemoglobin A1c Plasma Lactic Acid Ronal Calcium Total Bilirubin AST ALT Alkaline Phosphatase Total Creatine Kinase CK-MB (CK-2) Troponin I Total Protein Albumin HDL Cholesterol Urine Protein Urine Glucose (UA) Urine Blood Urine WBC Urine Bacteria Urine Mucus - Diagnostic Findings Chest x-ray: image reviewed (Chest x-ray from today is improved compared to previous x-ray, but it is still consistent with mild congestive heart failure. Some atelectasis noted at the right base. And small tiny right pleural effusion was also noted.) Assessment and Plan Plan: Impression: 1 acute non-ST segment elevation myocardial infarction 2 severe ischemic cardiomyopathy and poor LV function 3 chronic congestive heart failure secondary to above 4 history of hepatocellular carcinoma 5 hypotension secondary to above, mostly secondary to his poor LV function and cardiomyopathy. 6 elevated liver enzymes secondary to her underlying hepatocellular disease/ hepatocellular carcinoma 7 type 2 diabetes poorly controlled 8 history of hypertension 9 history of hypothyroidism 10 history of chronic anemia and previous history of GI blood losses. Recommendation: Continue present supportive care measures, patient is presently on norepinephrine, will titrate down as tolerated, patient will be diuresed gently to keep his fluid status under control. And will reevaluate in the next 24 hours. Patient is considering transferring to the [facility], and he will discuss this with the admitting physician. And with his treatment manager. Time with Patient: Greater than 30
[2016-09-19 11:52] LABS: Glucose,Whole Blood 216 mg/dL (75-99)
--- NOTE | 2016-09-19 12:38 | PN ---
This is a 70-year-old patient who is admitted to hospital with fatigue, tiredness, and was found to have bradycardia. He has severe LV systolic dysfunction. Has multiple and complex medical problems. His troponin was also elevated and he ruled in for myocardial infarction with a troponin of around 2. His platelet count is low and as such he is not a candidate for heparin or other forms of anticoagulation. In fact it dropped from 138 to 59 on this admission. He is also anemic. Following discussion with the patient, we opted to manage him with medical therapy at this time. The patient is hypotensive and is currently on Levophed for the same. He was on Aldactone, which is on hold. Had been given a dose of Lasix because of a concern about fluid overload. On exam, he appears comfortable at rest. He is in sinus rhythm. Chest exam reveals good air entry bilaterally. Heart exam reveals first and second heart sounds. No gallop. Exam of the extremities did not reveal any edema. Peripheral pulses are palpable. Labs show a hemoglobin of 7.8, platelet count is 59. ASSESSMENT: 1. Hypotension and bradycardia, probably related to the AV camille blockers that he was on and please do not use Inderal any further. I agree with holding Aldactone. I agree with the Lasix. Taper and stop the Levophed when we can. 2. Non-ST segment elevation myocardial infarction, optimal medical therapy. We will continue with aspirin as he tolerates it. Not a candidate for beta blockers at this time.
[2016-09-19 12:53] LABS: Glucose,Whole Blood 224 mg/dL (75-99)
[2016-09-19 15:02] LABS: Glucose,Whole Blood 211 mg/dL (75-99)
[2016-09-19 15:53] LABS: Glucose,Whole Blood 215 mg/dL (75-99)
[2016-09-19 17:35] LABS: Glucose,Whole Blood 178 mg/dL (75-99)
[2016-09-19 19:11] LABS: Glucose,Whole Blood 175 mg/dL (75-99)
[2016-09-19 20:43] LABS: Glucose,Whole Blood 184 mg/dL (75-99)
[2016-09-19] MEDS: INSULIN GLARGINE 100 UNIT/ML 10 ML VIAL SQ SCH (20:56)
[2016-09-19] MEDS: INSULIN LISPRO (humaLOG) 300 UNIT/3 ML VIAL SQ SCH (20:57)
--- NOTE | 2016-09-19 21:32 | PN ---
DATE OF SERVICE: 09/19/2016 This 70-year-old gentleman had a recent past medical history of multiple complex medical issues including history of hepatocellular carcinoma and history of diabetes. The patient was admitted with weakness. The patient had features of acute non-ST elevation myocardial infarction. The patient had hypotension and bradycardia. Patient was monitored closely in ICU. Other symptoms are partly due to medications per cardiology. Dr. Figueroa is also following the patient closely. The patient also had severe ischemic cardiomyopathy with poor ejection fraction also. The patient is being closely monitored. PAST MEDICAL HISTORY: Reviewed. REVIEW OF SYSTEMS: CARDIOVASCULAR: As mentioned. GI: No nausea. : No dysuria. MUSCULOSKELETAL: As mentioned earlier, generally weak. HEMATOLOGY/ONCOLOGY: As mentioned earlier. Current medications: 1. Aspirin 81 mg p.o. daily. 2. Symbicort 160/4.5, 2 puffs b.i.d. 3. Flonase 2 sprays daily. 4. Glucotrol 10 mg b.i.d. 5. Insulin. 6. Synthroid 125 mcg p.o. daily. 7. Tradjenta 5 mg p.o. daily. 8. Magnesium oxide 400 mg daily. 9. Nitrostat. 10. Levophed drip. 11. Protonix. 12. Zosyn 3.75 IV every 8. 13. Lyrica. 14. Aldactone. PHYSICAL EXAMINATION: Patient is alert, oriented x3. Pulse 78, blood pressure 82/150, respirations 20, temperature normal, pulse ox 89% on 2 L. HEENT: Oral mucosa moist. NECK: No JVD. No carotid bruits. CARDIOVASCULAR: S1 and S2. LUNGS: Breath sounds diminished at the bases. Few scattered rhonchi and crackles. ABDOMEN: Soft, nontender. Mass not palpable. EXTREMITIES: Legs no edema. NERVOUS SYSTEM: Diffusely weak. LABS: WBC 4.7, hemoglobin 7.8. Otherwise, creatinine is 1.45 and ( ) 2.7. AST, ALT noted. Troponin of 2.100. ASSESSMENT: 1. Acute non ST segment elevation myocardial infarction with troponin of 0.870. 2. Cardiogenic shock, multifactorial. On Levophed support secondary to acute myocardial infarction. 3. Probably primary hepatocellular carcinoma history recently. 4. Possible sepsis from unknown etiology, present on admission. 5. Uncontrolled diabetes type 2. Change in mental status, metabolic encephalopathy. 6. Increased bilirubin, AST and ALT, possibly secondary to hepatic malignancy. 7. Increased creatinine kinase. 8. Diabetes mellitus type 2, uncontrolled on insulin drip. 9. Hyponatremia. 10. Increased WBC secondary to possible sepsis. 11. Anemia, normocytic. 12. Thrombocytopenia. 13. Anemia, normocytic, possibly secondary to malignancy. 14. Thrombocytopenia, possibly secondary to malignancy. 15. History of coronary artery disease. 16. History of congestive heart failure. 17. Possible severe ischemic cardiomyopathy, ejection fraction 20%. 18. Diabetes mellitus type 2. 19. Hypertension, essential. 20. Hyperlipidemia. 21. History of hypothyroidism. 22. History of coronary artery disease and stent. 23. History of gait dysfunction. 24. Acute renal failure, possibly multifactorial, prerenal. 25. FULL CODE. RECOMMENDATIONS AND DISCUSSION: This 70-year-old gentleman presented with multiple complex medical issues. We will monitor the patient closely. Continue the current medications and continue pressor support. We will closely monitor the patient in the ICU at this time. Continue with home medications. Avoid beta blockers. Continue with antiplatelet agents. Pulmonary bronchodilators. Empiric antibiotics. Follow the cultures. Continue the rest of medications. Monitor blood sugars closely. Prognosis guarded because of multiple complex medical issues. Continue to monitor. Further recommendations to follow. Discussed with patient and staff. See orders for further details. X-rays reviewed.
[2016-09-20] MEDS: PIPERACILLIN-TAZOBACTAM 3.375 GM in DEXTROSE/WATER 1 50ML.BAG IVPB SCH ×3 (00:15→15:09)
--- NOTE | 2016-09-20 00:35 | P.CONS ---
History of Present Illness - Reason for Consult Consult date: 09/20/16 Thrombocytopenia, anemia and coagulopathy - History of Present Illness The patient is a 70-year-old gentleman, with multiple medical problems. He has a long-standing history of nonalcoholic steatohepatitis, and was diagnosed with hepatocellular carcinoma, apparently in the fall of 2015. He was unable to give me exact dates. He appears to have been treated with a combination off for chemoembolization and radiofrequency ablation. He states that he is now on observation, with his previous computed tomography scan showing no evidence of progression. His next scan is due within the next 2-3 weeks. His care so far, has been at the [facility] in [place]. He does have chronic thrombo-cytopenia, related to his liver disease and portal hypertension. In 07/18, he also had a major GI bleed, due to varices, for which she was admitted here and then transferred to [place]. The patient was admitted with progressive weakness, as well as some shortness of breath. He did not have any actual chest pain. In the ER, labs showed evidence of elevated troponins, and he was diagnosed with non-ST elevation myocardial infarction. On admission, hemoglobin was noted to be in the 9-10 range and subsequently fell to 7.8. Platelet count was 129, and declined to 56. Baseline coags showed elevation of INR at 1.6. Consult was therefore placed for further evaluation and recommendations. Review of Systems Constitutional: Reports lethargy, Reports weakness Eyes: denies blurred vision, denies pain Ears: deny: decreased hearing, ear discharge, earache, tinnitus Ears, nose, mouth and throat: Denies headache, Denies sore throat Cardiovascular: Reports as per HPI (Low blood pressure, elevated troponins), Reports orthopnea, Reports shortness of breath Respiratory: Reports dyspnea Gastrointestinal: Reports as per HPI (Known esophageal varices, with the recent major GI bleed in 07/18), Denies abdominal pain, Denies diarrhea, Denies nausea, Denies vomiting Integumentary: Denies pruritus, Denies rash Neurological: Reports change in mentation, Reports weakness Psychiatric: Denies anxiety, Denies depression Endocrine: Reports fatigue Hematologic/Lymphatic: Reports as per HPI Past Medical History Past Medical History: Coronary Artery Disease (CAD), Cancer, Chest Pain / Angina , Heart Failure, Diabetes Mellitus, Hyperlipidemia, Hypertension, Liver Disease , Myocardial Infarction (SD), Thyroid Disorder Additional Past Medical History / Comment(s): [facility] bleed. He transferred to [facility] in [place] and was found to have esophageal varices with were banded. Other hx: 10/2015 liver cancer was treated in [place] with chemo directly into a couple of the tumors and "burning" of the other tumors, IDDM type II, acute/chronic anemia, blood loss anemia, hypothyroid, hypomagnesium. Last Myocardial Infarction Date:: 1997 History of Any Multi-Drug Resistant Organisms: None Reported Past Surgical History: Heart Catheterization With Stent, Hernia Repair Additional Past Surgical History / Comment(s): 07/2016 esophageal varicies banded at [facility] in [place], sinus surgery, liver surgery at [place], cardiac stenting x7-8, EGD/colonoscopy, L inguinal hernia surgery. Past Anesthesia/Blood Transfusion Reactions: No Reported Reaction Date of Last Stent Placement:: 08/2015 Past Psychological History: No Psychological Hx Reported Additional Psychological History / Comment(s): Pt currently is staying with his nephew. He uses no assistive device. He is not currently driving d/t health problems. Smoking Status: Former smoker Past Alcohol Use History: None Reported Additional Past Alcohol Use History / Comment(s): Pt states he quit smoking in 1994. Past Drug Use History: None Reported - Past Family History Mother Family Medical History: Myocardial Infarction (SD) Additional Family Medical History / Comment(s): Mother had a SD at the age of 55yrs and then of a SD at the age of 57yrs. Father Family Medical History: CVA/TIA Additional Family Medical History / Comment(s): Father had a endartectomy and during which he had a CVA and . He was 81 yrs old. Medications and Allergies Home Medications Medication Instructions Recorded Confirmed Type Aspirin [Adult Low Dose Aspirin EC] 81 mg PO DAILY 10/23/15 09/18/16 History Atorvastatin [Lipitor] 80 mg PO HS 10/23/15 09/18/16 History Levothyroxine Sodium [Levoxyl] 125 mcg PO DAILY 10/23/15 09/18/16 History Nitroglycerin Sl Tabs [Nitrostat] 0.4 mg SUBLINGUAL Q5M PRN 10/23/15 09/18/16 History Omeprazole 20 mg PO BID 10/23/15 09/18/16 History Budesonide-Formot 160-4.5 Mcg 2 puff INHALATION RT-BID 09/18/16 09/18/16 History [Symbicort 160-4.5 Mcg Inhaler] Ferrous Sulfate [Feosol] 325 mg PO BID 09/18/16 09/18/16 History Fluticasone Nasal [place] [Flonase 2 spr EA NOSTRIL DAILY PRN 09/18/16 09/18/16 History Nasal [place]] Furosemide [Lasix] 20 mg PO DAILY 09/18/16 09/18/16 History Insulin Aspart [NovoLOG Flexpen] 10 units SQ AC-TID 09/18/16 09/18/16 History Insulin Glargine,Hum.rec.anlog 10 unit SQ HS 09/18/16 09/18/16 History [Lantus Solostar] Isosorbide Mononitrate ER [Imdur] 30 mg PO DAILY 09/18/16 09/18/16 History Loratadine [Claritin] 10 mg PO DAILY 09/18/16 09/18/16 History Magnesium Chloride [Mag64] 256 mg PO QID 09/18/16 09/18/16 History Pregabalin [Lyrica] 50 mg PO DAILY 09/18/16 09/18/16 History Propranolol HCl 20 mg PO BID 09/18/16 09/18/16 History Saxagliptin HCl [Onglyza] 5 mg PO DAILY 09/18/16 09/18/16 History Spironolactone [Aldactone] 50 mg PO DAILY 09/18/16 09/18/16 History glipiZIDE [Glucotrol] 10 mg PO AC-BID 09/18/16 09/18/16 History metFORMIN HCL [Glucophage] 1,000 mg PO BID 09/18/16 09/18/16 History Allergies Allergy/AdvReac Type Severity Reaction Status Date / Time codeine Allergy Unknown Verified 07/27/16 02:27 Childhood heparin Allergy Unknown Verified 07/27/16 02:27 procaine HCl [From Novocain] Allergy Unknown Verified 07/27/16 02:27 Physical Exam Vitals: Vital Signs Temp Pulse Resp BP Pulse Ox 09/19/16 23:00 85 19 92/60 96 09/19/16 22:00 83 22 99/58 92 L 03/21/17 21:00 83 19 92/57 93 L 09/19/16 20:00 98.2 F 81 20 82/60 94 L 09/19/16 19:00 81 21 98/64 94 L 09/19/16 18:00 81 20 98/62 86 L 09/19/16 17:00 79 16 90/59 95 09/19/16 16:00 79 16 87/52 94 L 09/19/16 15:10 23 09/19/16 15:00 78 23 82/50 89 L 09/19/16 14:00 79 20 98/59 96 09/19/16 13:00 77 19 87/58 97 09/19/16 12:00 97.6 F 78 14 97/59 94 L 09/19/16 11:37 16 09/19/16 11:00 75 16 91/60 94 L 09/19/16 10:00 78 21 76/49 94 L 09/19/16 09:00 80 17 111/67 96 09/19/16 08:00 97.6 F 71 15 100/63 93 L 09/19/16 07:00 69 15 77/53 94 L 09/19/16 06:00 77 9 L 82/46 95 09/19/16 05:00 75 15 71/47 95 09/19/16 04:00 98.0 F 80 18 88/60 95 09/19/16 03:00 79 12 77/52 92 L 09/19/16 02:00 76 21 83/54 94 L 09/19/16 01:00 74 10 L 80/52 93 L Intake and Output 09/19/16 09/19/16 09/20/16 14:59 22:59 06:59 Intake Total 598.335 334.201 Output Total 770 650 150 Balance -171.665 -315.799 -150 Intake: IV 155 250 Sodium Chloride 0.9% 1, 155 250 000 ml @ 75 mls/hr IV . [id number] STA Rx#:[id number] Intake, IV Titration 443.335 84.201 Amount Insulin Regular 100 unit 23.536 In Sodium Chloride 0.9% 100 ml @ Per Protocol IV .Q0M [facility] Rx#:[id number] Magnesium Sulfate-D5w Pmx 200 1 gm In Dextrose/Water 1 100ml.bag @ 100 mls/hr IVPB Q1H MAC Rx#: [id number] Norepinephrine 4 mg In 169.799 84.201 Sodium Chloride 0.9% 250 ml @ Titrate IV .Q0M [facility] Rx#:[id number] Piperacillin-Tazobactam 3 50.0 .375 gm In Dextrose/Water 1 50ml.bag @ 12.5 mls/hr IVPB Q8HR MAC Rx#: [id number] Output: Urine 770 650 150 Other: Voiding Method Indwelling Catheter Indwelling Catheter Weight 100.6 kg Patient Weight 09/20/16 06:59 Weight 100.6 kg - Constitutional General appearance: mild distress - EENT Eyes: EOMI, PERRLA ENT: hearing grossly normal, normal oropharynx - Neck Neck: no lymphadenopathy Thyroid: bilateral: normal size - Respiratory Respiratory: bilateral: diminished - Cardiovascular Rhythm: irregularly irregular Heart sounds: normal: S1, S2 Abnormal Heart Sounds: S3 Gallop - Gastrointestinal General gastrointestinal: normal bowel sounds, soft - Integumentary Integumentary: normal - Neurologic Neurologic: CNII-XII intact - Musculoskeletal Musculoskeletal: generalized weakness, strength equal bilaterally - Psychiatric Psychiatric: A&O x's 3, appropriate affect Results CBC & Chem 7: 09/19/16 06:37 09/19/16 12:13 Labs: Abnormal Lab Results - Last 24 Hours (Table) 09/18/16 09/19/16 09/19/16 Range/Units 20:50 00:23 01:28 RBC (4.30-5.90) m/uL Hgb (13.0-17.5) gm/dL Hct (39.0-53.0) % MCH (25.0-35.0) pg MCHC (31.0-37.0) g/dL RDW (11.5-15.5) % Plt Count (150-450) k/uL Lymphocytes # (Manual) (1.0-4.8) k/uL PT (9.0-12.0) sec Sodium (137-145) mmol/L BUN (9-20) mg/dL Creatinine (0.66-1.25) mg/dL Glucose (74-99) mg/dL POC Glucose (mg/dL) 206 H 168 H (75-99) mg/dL Hemoglobin A1c 10.5 H (4.2-6.1) % Plasma Lactic Acid Ronal (0.7-2.0) mmol/L Calcium (8.4-10.2) mg/dL Total Bilirubin (0.2-1.3) mg/dL AST (17-59) U/L ALT (21-72) U/L Alkaline Phosphatase (38-126) U/L Troponin I (0.000-0.034) ng/mL Total Protein (6.3-8.2) g/dL Albumin (3.5-5.0) g/dL HDL Cholesterol (40-60) mg/dL 09/19/16 09/19/16 09/19/16 Range/Units 02:17 02:24 03:46 RBC (4.30-5.90) m/uL Hgb (13.0-17.5) gm/dL Hct (39.0-53.0) % MCH (25.0-35.0) pg MCHC (31.0-37.0) g/dL RDW (11.5-15.5) % Plt Count (150-450) k/uL Lymphocytes # (Manual) (1.0-4.8) k/uL PT (9.0-12.0) sec Sodium (137-145) mmol/L BUN (9-20) mg/dL Creatinine (0.66-1.25) mg/dL Glucose (74-99) mg/dL POC Glucose (mg/dL) 166 H 176 H (75-99) mg/dL Hemoglobin A1c (4.2-6.1) % Plasma Lactic Acid Ronal 2.7 H* (0.7-2.0) mmol/L Calcium (8.4-10.2) mg/dL Total Bilirubin (0.2-1.3) mg/dL AST (17-59) U/L ALT (21-72) U/L Alkaline Phosphatase (38-126) U/L Troponin I (0.000-0.034) ng/mL Total Protein (6.3-8.2) g/dL Albumin (3.5-5.0) g/dL HDL Cholesterol (40-60) mg/dL 09/19/16 09/19/16 09/19/16 Range/Units 04:37 05:45 06:27 RBC (4.30-5.90) m/uL Hgb (13.0-17.5) gm/dL Hct (39.0-53.0) % MCH (25.0-35.0) pg MCHC (31.0-37.0) g/dL RDW (11.5-15.5) % Plt Count (150-450) k/uL Lymphocytes # (Manual) (1.0-4.8) k/uL PT (9.0-12.0) sec Sodium (137-145) mmol/L BUN (9-20) mg/dL Creatinine (0.66-1.25) mg/dL Glucose (74-99) mg/dL POC Glucose (mg/dL) 175 H 166 H 166 H (75-99) mg/dL Hemoglobin A1c (4.2-6.1) % Plasma Lactic Acid Ronal (0.7-2.0) mmol/L Calcium (8.4-10.2) mg/dL Total Bilirubin (0.2-1.3) mg/dL AST (17-59) U/L ALT (21-72) U/L Alkaline Phosphatase (38-126) U/L Troponin I (0.000-0.034) ng/mL Total Protein (6.3-8.2) g/dL Albumin (3.5-5.0) g/dL HDL Cholesterol (40-60) mg/dL 09/19/16 09/19/16 09/19/16 Range/Units 06:37 06:37 06:37 RBC 3.15 L (4.30-5.90) m/uL Hgb 7.8 L D (13.0-17.5) gm/dL Hct 26.3 L (39.0-53.0) % MCH 24.7 L (25.0-35.0) pg MCHC 29.5 L (31.0-37.0) g/dL RDW 17.0 H (11.5-15.5) % Plt Count 59 L D (150-450) k/uL Lymphocytes # (Manual) 0.8 L (1.0-4.8) k/uL PT 16.5 H (9.0-12.0) sec Sodium 134 L (137-145) mmol/L BUN 31 H (9-20) mg/dL Creatinine 1.45 H (0.66-1.25) mg/dL Glucose 143 H (74-99) mg/dL POC Glucose (mg/dL) (75-99) mg/dL Hemoglobin A1c (4.2-6.1) % Plasma Lactic Acid Ronal (0.7-2.0) mmol/L Calcium 7.8 L (8.4-10.2) mg/dL Total Bilirubin 2.5 H (0.2-1.3) mg/dL AST 261 H (17-59) U/L ALT 134 H (21-72) U/L Alkaline Phosphatase 140 H (38-126) U/L Troponin I (0.000-0.034) ng/mL Total Protein 4.2 L (6.3-8.2) g/dL Albumin 1.8 L (3.5-5.0) g/dL HDL Cholesterol 17 L (40-60) mg/dL 09/19/16 09/19/16 09/19/16 Range/Units 06:37 06:37 07:13 RBC (4.30-5.90) m/uL Hgb (13.0-17.5) gm/dL Hct (39.0-53.0) % MCH (25.0-35.0) pg MCHC (31.0-37.0) g/dL RDW (11.5-15.5) % Plt Count (150-450) k/uL Lymphocytes # (Manual) (1.0-4.8) k/uL PT (9.0-12.0) sec Sodium (137-145) mmol/L BUN (9-20) mg/dL Creatinine (0.66-1.25) mg/dL Glucose (74-99) mg/dL POC Glucose (mg/dL) 154 H (75-99) mg/dL Hemoglobin A1c (4.2-6.1) % Plasma Lactic Acid Ronal 2.3 H* (0.7-2.0) mmol/L Calcium (8.4-10.2) mg/dL Total Bilirubin (0.2-1.3) mg/dL AST (17-59) U/L ALT (21-72) U/L Alkaline Phosphatase (38-126) U/L Troponin I 2.100 H* (0.000-0.034) ng/mL Total Protein (6.3-8.2) g/dL Albumin (3.5-5.0) g/dL HDL Cholesterol (40-60) mg/dL 09/19/16 09/19/16 09/19/16 Range/Units 07:57 10:02 11:01 RBC (4.30-5.90) m/uL Hgb (13.0-17.5) gm/dL Hct (39.0-53.0) % MCH (25.0-35.0) pg MCHC (31.0-37.0) g/dL RDW (11.5-15.5) % Plt Count (150-450) k/uL Lymphocytes # (Manual) (1.0-4.8) k/uL PT (9.0-12.0) sec Sodium (137-145) mmol/L BUN (9-20) mg/dL Creatinine (0.66-1.25) mg/dL Glucose (74-99) mg/dL POC Glucose (mg/dL) 145 H 230 H 258 H (75-99) mg/dL Hemoglobin A1c (4.2-6.1) % Plasma Lactic Acid Ronal (0.7-2.0) mmol/L Calcium (8.4-10.2) mg/dL Total Bilirubin (0.2-1.3) mg/dL AST (17-59) U/L ALT (21-72) U/L Alkaline Phosphatase (38-126) U/L Troponin I (0.000-0.034) ng/mL Total Protein (6.3-8.2) g/dL Albumin (3.5-5.0) g/dL HDL Cholesterol (40-60) mg/dL 09/19/16 09/19/16 09/19/16 Range/Units 11:50 12:13 12:51 RBC (4.30-5.90) m/uL Hgb (13.0-17.5) gm/dL Hct (39.0-53.0) % MCH (25.0-35.0) pg MCHC (31.0-37.0) g/dL RDW (11.5-15.5) % Plt Count (150-450) k/uL Lymphocytes # (Manual) (1.0-4.8) k/uL PT (9.0-12.0) sec Sodium (137-145) mmol/L BUN (9-20) mg/dL Creatinine (0.66-1.25) mg/dL Glucose (74-99) mg/dL POC Glucose (mg/dL) 216 H 224 H (75-99) mg/dL Hemoglobin A1c (4.2-6.1) % Plasma Lactic Acid Ronal 2.7 H* (0.7-2.0) mmol/L Calcium (8.4-10.2) mg/dL Total Bilirubin (0.2-1.3) mg/dL AST (17-59) U/L ALT (21-72) U/L Alkaline Phosphatase (38-126) U/L Troponin I (0.000-0.034) ng/mL Total Protein (6.3-8.2) g/dL Albumin (3.5-5.0) g/dL HDL Cholesterol (40-60) mg/dL 09/19/16 09/19/16 09/19/16 Range/Units 15:00 15:51 17:32 RBC (4.30-5.90) m/uL Hgb (13.0-17.5) gm/dL Hct (39.0-53.0) % MCH (25.0-35.0) pg MCHC (31.0-37.0) g/dL RDW (11.5-15.5) % Plt Count (150-450) k/uL Lymphocytes # (Manual) (1.0-4.8) k/uL PT (9.0-12.0) sec Sodium (137-145) mmol/L BUN (9-20) mg/dL Creatinine (0.66-1.25) mg/dL Glucose (74-99) mg/dL POC Glucose (mg/dL) 211 H 215 H 178 H (75-99) mg/dL Hemoglobin A1c (4.2-6.1) % Plasma Lactic Acid Ronal (0.7-2.0) mmol/L Calcium (8.4-10.2) mg/dL Total Bilirubin (0.2-1.3) mg/dL AST (17-59) U/L ALT (21-72) U/L Alkaline Phosphatase (38-126) U/L Troponin I (0.000-0.034) ng/mL Total Protein (6.3-8.2) g/dL Albumin (3.5-5.0) g/dL HDL Cholesterol (40-60) mg/dL 09/19/16 09/19/16 Range/Units 19:10 20:42 RBC (4.30-5.90) m/uL Hgb (13.0-17.5) gm/dL Hct (39.0-53.0) % MCH (25.0-35.0) pg MCHC (31.0-37.0) g/dL RDW (11.5-15.5) % Plt Count (150-450) k/uL Lymphocytes # (Manual) (1.0-4.8) k/uL PT (9.0-12.0) sec Sodium (137-145) mmol/L BUN (9-20) mg/dL Creatinine (0.66-1.25) mg/dL Glucose (74-99) mg/dL POC Glucose (mg/dL) 175 H 184 H (75-99) mg/dL Hemoglobin A1c (4.2-6.1) % Plasma Lactic Acid Ronal (0.7-2.0) mmol/L Calcium (8.4-10.2) mg/dL Total Bilirubin (0.2-1.3) mg/dL AST (17-59) U/L ALT (21-72) U/L Alkaline Phosphatase (38-126) U/L Troponin I (0.000-0.034) ng/mL Total Protein (6.3-8.2) g/dL Albumin (3.5-5.0) g/dL HDL Cholesterol (40-60) mg/dL Microbiology - Last 24 Hours (Table) 09/18/16 20:50 Blood Culture - Preliminary Blood No Growth after 24 hours 09/18/16 23:00 Urine Culture - Preliminary Urine,Clean Catch Comments: Echocardiogram report reviewed. Ejection fraction is markedly reduced at 20% Chest x-ray: report reviewed CT Scan - head: report reviewed Assessment and Plan (1) Bicytopenia Narrative/Plan: This is related to his liver disease. Low platelets are due to baseline decreased production, as well as splenic sequestration due to his portal hypertension. At baseline,. Counts were actually fairly close to normal at 129. In the this situation, drop in platelet counts in any situation of increased stress is expected. From the platelets standpoint, anticoagulation or antiplatelet therapy is okay, as long as platelet counts of greater than 50, 000. Given his history, the anemia is likely to be due to iron deficiency. I will check iron studies. The patient may benefit from ongoing iron supplementation Status: Acute (2) Coagulopathy Narrative/Plan: The patient has a degree of auto anticoagulation, again due to liver disease, with INR of 1.6. He is not having any obvious bleeding at this time. Therefore acute intervention is not required. However if the patient had evidence of obvious bleeding, or needed to be placed on anticoagulation, then the INR will need to be reversed. Status: Acute (3) Elevated troponin Narrative/Plan: The patient was determined to have a non-ST elevation SD. The patient has a known history of coronary artery disease and has had multiple stents placed in the past. Ejection fraction is markedly reduced. The case was discussed extensively with cardiology. Given the hematology normalities, invasive intervention would be quite complicated though theoretically it is possible. The patient gives a questionable history of heparin-induced thrombocytopenia. If this were resumed to be true, he would need anticoagulation with Argatroban. Anticoagulation, or antiplatelet therapy can be continued as long as platelet count is greater than 50,000. If the patient were to be placed on anticoagulation with the above agents, the INR elevation due to liver disease would need to be reversed. He would be at increased risk of bleeding, given major GI bleed within the last 3 months. It was confirmed by cardiology, that due to the above as well as multiple other medical issues, the plan is to manage him conservatively. Status: Acute
[2016-09-20] MEDS: INSULIN LISPRO (humaLOG) 300 UNIT/3 ML VIAL SQ SCH ×5 (02:15→20:33)
[2016-09-20 04:28] LABS: Glucose,Whole Blood 216 mg/dL (75-99)
[2016-09-20 05:10] LABS: INR 1.6 (<1.1); Prothrombin Time 15.3 sec (9.0-12.0)
[2016-09-20 05:13] LABS: ALT 155 U/L (21-72); AST 256 U/L (17-59); Alkaline Phosphatase 185 U/L (38-126); Anion Gap 7 mmol/L; Blood Urea Nitrogen 30 mg/dL (9-20); Calcium 8.2 mg/dL (8.4-10.2); Carbon Dioxide 23 mmol/L (22-30); Chloride 101 mmol/L (98-107); Glucose 191 mg/dL (74-99); Iron 17 ug/dL (49-181); Magnesium 1.9 mg/dL (1.6-2.3); Non-African American GFR(MDRD) 54 (>60 ml/min/1.73 sqM); Phosphorous 2.8 mg/dL (2.5-4.5); Potassium 4.2 mmol/L (3.5-5.1); Sodium 131 mmol/L (137-145); Total Protein 4.9 g/dL (6.3-8.2)
[2016-09-20 05:22] LABS: % Iron Saturation 6.3 % (20-50); Total Iron Binding Capacity 270 ug/dL (261-462)
[2016-09-20 05:29] LABS: Anisocytosis Slight; Aty Lym Flag Slight; CH 23.9; CHCM 29.1; HCT 32.1 % (39.0-53.0); HDW 4.47; Hypochromasia Marked; MCHC 29.1 g/dL (31.0-37.0); MCV 82.4 fL (80.0-100.0); Mean Platelet Volume 7.3; Poikilocytosis Moderate; RDW 17.3 % (11.5-15.5); WBC 12.1 k/uL (3.8-10.6); WBC (Perox) 12.47
[2016-09-20 05:39] LABS: HGB 9.3 gm/dL (13.0-17.5)
[2016-09-20] MEDS ORDERED: Magnesium Replacement Protocol 1 EACH MISC MISCELLANE PRN (05:49)
[2016-09-20] MEDS: MAGNESIUM SULFATE-D5W PMX 1 GM in DEXTROSE/WATER 1 100ML.BAG IVPB SCH ×2 (06:41→08:14)
[2016-09-20] MEDS: LEVOTHYROXINE 125 MCG TAB PO SCH (06:41)
[2016-09-20] MEDS: SYMBICORT 160-4.5 MCG INHALER INHALATION SCH ×2 (07:09→19:11)
[2016-09-20] MEDS: IPRATROPIUM-ALBUTEROL 3 ML NEB INHALATION PRN ×3 (07:13→16:08)
--- NOTE | 2016-09-20 07:15 | XR ---
EXAMINATION TYPE: XR chest 1V DATE OF EXAM: 09/20/2016 6:56 AM COMPARISON: Prior chest x-ray 19 September 2016 HISTORY: Shortness of breath TECHNIQUE: Single frontal view of the chest is obtained. FINDINGS: Lung volumes are low. Central vascularity and interstitium are increased. Heart size is st able and thought to be enlarged. No evident pneumothorax or sizable effusion. IMPRESSION: Correlate for heart failure. Pneumonia not excluded. Follow-up recommended.
[2016-09-20 08:08] LABS: Glucose,Whole Blood 173 mg/dL (75-99)
[2016-09-20] MEDS: PANTOPRAZOLE 40 MG TABLET PO SCH ×2 (08:08→17:42)
[2016-09-20 09:15] LABS: Add Differential Manual Differential
[2016-09-20 09:17] LABS: Crenated RBC Present; Manual Review Performed; Nucleated Red Blood Cells 0 /100 WBC (0-0); Total Cells Counted 100
[2016-09-20 09:18] LABS: Toxic Granulation Present
[2016-09-20] MEDS: ASPIRIN 81 MG CHEW PO SCH (10:15)
[2016-09-20] MEDS: MAGNESIUM OXIDE 400 MG TAB PO SCH ×4 (10:16→20:34)
[2016-09-20] MEDS: PREGABALIN 50 MG CAP PO SCH (10:16)
[2016-09-20] MEDS: SPIRONOLACTONE 25 MG TAB PO SCH (10:17)
[2016-09-20] MEDS: NOREPINEPHRINE 4 MG in SODIUM CHLORIDE 0.9% 250 ML IV SCH ×2 (10:46→20:05)
--- NOTE | 2016-09-20 12:11 | P.PN ---
Subjective Principal diagnosis: Acute non-ST segment elevation myocardial infarction This is a 70-year-old white male with history of coronary artery disease and severe ischemic cardiomyopathy, chronic congestive heart failure, diabetes, hypertension, hepatocellular carcinoma involving the liver, history of portal hypertension and esophageal varices requiring banding, patient usually follows at the [facility] for his cardiac issues. And he sees a seed laboratory assistant in the [facility] area. Patient was admitted this time with mostly multiple complaints including generalized weakness, fatigue, some shortness of breath. His troponins were noted to be elevated, and he was noted to have a non-ST segment elevation myocardial infarction. He was seen by cardiology, but he was not felt to be a candidate for much intervention. Patient was admitted, but because of low blood pressure while he was on the cardiac floor, patient was transferred to the ICU, and I was asked to see him on consultation. Patient was initially placed on Dobutrex, did not seem to help his blood pressure much, hence I discontinued Dobutrex and place him on norepinephrine and he is presently on 8 g of norepinephrine. Blood pressure seems to be better, urine output is improved with improvement of the blood pressure, and his chest x-ray showed mild congestive changes hence I gave the patient a dose of Lasix earlier today. Patient is not in any form of distress, but requiring levo fed to maintain adequate blood pressure. Patient denies any fever chills, no headaches no blurred vision no dizziness, no chest pain. He feels generally weak. Patient was reevaluated today on 09/20/2016, remains in the intensive care unit, remains on norepinephrine at 8 g, patient is making good urine output about 50- 100 mL/h without diuretics. Remains in the ICU mostly because of the blood pressure remains marginal and he remains on norepinephrine. Overall the patient is feeling better, breathing easier, continues to have a chest x-ray suggestive of mild congestive heart failure, continues to have crackles on physical examination bilaterally. Patient was supposed to be transferred [facility], but apparently no beds are available. CBC was reviewed INR is 1.6 electrolytes are normal BUN is 30 creatinine is 1.30 Objective - Vital Signs Vital signs: Vital Signs Temp 97.6 F 09/20/16 08:00 Pulse 86 09/20/16 11:14 Resp 23 09/20/16 11:00 BP 74/61 09/20/16 11:00 Pulse Ox 94 L 09/20/16 11:00 Intake & Output 09/19/16 09/20/16 09/20/16 18:59 06:59 18:59 Intake Total 678.335 254.201 340 Output Total 1070 1040 280 Balance -391.665 -785.799 60 Weight 100.6 kg 103.6 kg Intake: IV 235 170 90 0.9 90 Sodium Chloride 0.9% 1, 235 170 000 ml @ 75 mls/hr IV . [id number] STA Rx#:[id number] Intake, IV Titration 443.335 84.201 250 Amount Insulin Regular 100 unit 23.536 In Sodium Chloride 0.9% 100 ml @ Per Protocol IV .Q0M MAC Rx#:[id number] Magnesium Sulfate-D5w Pmx 200 1 gm In Dextrose/Water 1 100ml.bag @ 100 mls/hr IVPB Q1H MAC Rx#: [id number] Magnesium Sulfate-D5w Pmx 200 1 gm In Dextrose/Water 1 100ml.bag @ 100 mls/hr IVPB Q1H MAC Rx#: [id number] Norepinephrine 4 mg In 169.799 84.201 Sodium Chloride 0.9% 250 ml @ Titrate IV .Q0M MAC Rx#:[id number] Piperacillin-Tazobactam 3 50.0 50 .375 gm In Dextrose/Water 1 50ml.bag @ 12.5 mls/hr IVPB Q8HR MAC Rx#: [id number] Output: Urine 1070 1040 280 Other: Voiding Method Indwelling Catheter Indwelling Catheter Indwelling Catheter - Exam Physical Exam: Revealed a 70-year-old white male in no distress HEENT:[Neck is supple.] [No neck masses.] [No thyromegaly.] [No JVD.] Chest: [Minimal fine crackles at the bases, no rhonchi, no wheezes] Cardiac Exam: [Normal S1 and S2, no S3 gallop, no murmur.] Abdomen: [Soft, nontender, no megaly, no rebound, no guarding, normal bowel sounds.] Extremities: [No clubbing, no edema, no cyanosis.] Neurological Exam: [No focal neurologic deficit.] - Labs CBC & Chem 7: 09/20/16 04:38 09/20/16 04:38 Labs: Abnormal Lab Results - Last 24 Hours (Table) 09/19/16 09/19/16 09/19/16 Range/Units 12:13 12:51 15:00 WBC (3.8-10.6) k/uL RBC (4.30-5.90) m/uL Hgb (13.0-17.5) gm/dL Hct (39.0-53.0) % MCH (25.0-35.0) pg MCHC (31.0-37.0) g/dL RDW (11.5-15.5) % Plt Count (150-450) k/uL Neutrophils # (Manual) (1.3-7.7) k/uL PT (9.0-12.0) sec Sodium (137-145) mmol/L BUN (9-20) mg/dL Creatinine (0.66-1.25) mg/dL Glucose (74-99) mg/dL POC Glucose (mg/dL) 224 H 211 H (75-99) mg/dL Plasma Lactic Acid Ronal 2.7 H* (0.7-2.0) mmol/L Calcium (8.4-10.2) mg/dL Iron (49-181) ug/dL % Saturation (20-50) % Ferritin (18-464) ng/mL Total Bilirubin (0.2-1.3) mg/dL AST (17-59) U/L ALT (21-72) U/L Alkaline Phosphatase (38-126) U/L Total Protein (6.3-8.2) g/dL Albumin (3.5-5.0) g/dL 09/19/16 09/19/16 09/19/16 Range/Units 15:51 17:32 19:10 WBC (3.8-10.6) k/uL RBC (4.30-5.90) m/uL Hgb (13.0-17.5) gm/dL Hct (39.0-53.0) % MCH (25.0-35.0) pg MCHC (31.0-37.0) g/dL RDW (11.5-15.5) % Plt Count (150-450) k/uL Neutrophils # (Manual) (1.3-7.7) k/uL PT (9.0-12.0) sec Sodium (137-145) mmol/L BUN (9-20) mg/dL Creatinine (0.66-1.25) mg/dL Glucose (74-99) mg/dL POC Glucose (mg/dL) 215 H 178 H 175 H (75-99) mg/dL Plasma Lactic Acid Ronal (0.7-2.0) mmol/L Calcium (8.4-10.2) mg/dL Iron (49-181) ug/dL % Saturation (20-50) % Ferritin (18-464) ng/mL Total Bilirubin (0.2-1.3) mg/dL AST (17-59) U/L ALT (21-72) U/L Alkaline Phosphatase (38-126) U/L Total Protein (6.3-8.2) g/dL Albumin (3.5-5.0) g/dL 09/19/16 09/20/16 09/20/16 Range/Units 20:42 04:26 04:38 WBC (3.8-10.6) k/uL RBC (4.30-5.90) m/uL Hgb (13.0-17.5) gm/dL Hct (39.0-53.0) % MCH (25.0-35.0) pg MCHC (31.0-37.0) g/dL RDW (11.5-15.5) % Plt Count (150-450) k/uL Neutrophils # (Manual) (1.3-7.7) k/uL PT (9.0-12.0) sec Sodium 131 L (137-145) mmol/L BUN 30 H (9-20) mg/dL Creatinine 1.30 H (0.66-1.25) mg/dL Glucose 191 H (74-99) mg/dL POC Glucose (mg/dL) 184 H 216 H (75-99) mg/dL Plasma Lactic Acid Ronal (0.7-2.0) mmol/L Calcium 8.2 L (8.4-10.2) mg/dL Iron 17 L (49-181) ug/dL % Saturation 6.3 L (20-50) % Ferritin 16 L (18-464) ng/mL Total Bilirubin 3.0 H (0.2-1.3) mg/dL AST 256 H (17-59) U/L ALT 155 H (21-72) U/L Alkaline Phosphatase 185 H (38-126) U/L Total Protein 4.9 L (6.3-8.2) g/dL Albumin 2.2 L (3.5-5.0) g/dL 09/20/16 09/20/16 09/20/16 Range/Units 04:38 04:38 08:06 WBC 12.1 H (3.8-10.6) k/uL RBC 3.90 L (4.30-5.90) m/uL Hgb 9.3 L D (13.0-17.5) gm/dL Hct 32.1 L (39.0-53.0) % MCH 24.0 L (25.0-35.0) pg MCHC 29.1 L (31.0-37.0) g/dL RDW 17.3 H (11.5-15.5) % Plt Count 137 L D (150-450) k/uL Neutrophils # (Manual) 10.0 H (1.3-7.7) k/uL PT 15.3 H (9.0-12.0) sec Sodium (137-145) mmol/L BUN (9-20) mg/dL Creatinine (0.66-1.25) mg/dL Glucose (74-99) mg/dL POC Glucose (mg/dL) 173 H (75-99) mg/dL Plasma Lactic Acid Ronal (0.7-2.0) mmol/L Calcium (8.4-10.2) mg/dL Iron (49-181) ug/dL % Saturation (20-50) % Ferritin (18-464) ng/mL Total Bilirubin (0.2-1.3) mg/dL AST (17-59) U/L ALT (21-72) U/L Alkaline Phosphatase (38-126) U/L Total Protein (6.3-8.2) g/dL Albumin (3.5-5.0) g/dL Microbiology - Last 24 Hours (Table) 09/18/16 20:50 Blood Culture - Preliminary Blood No Growth after 24 hours 09/18/16 23:00 Urine Culture - Preliminary Urine,Clean Catch Assessment and Plan Plan: Impression: 1 acute non-ST segment elevation myocardial infarction 2 severe ischemic cardiomyopathy and poor LV function 3 chronic congestive heart failure secondary to above 4 history of hepatocellular carcinoma 5 hypotension secondary to above, mostly secondary to his poor LV function and cardiomyopathy. 6 elevated liver enzymes secondary to her underlying hepatocellular disease/ hepatocellular carcinoma 7 type 2 diabetes poorly controlled 8 history of hypertension 9 history of hypothyroidism 10 history of chronic anemia and previous history of GI blood losses. Recommendation: Continue present supportive care measures, patient is presently on norepinephrine, will titrate down as tolerated, patient will be diuresed gently to keep his fluid status under control. Not quite ready to be discharged to the ICU at this point, we'll continue to follow closely. Time with Patient: Less than 30
[2016-09-20 12:38] LABS: Glucose,Whole Blood 264 mg/dL (75-99)
[2016-09-20 13:03] LABS: Glucose,Whole Blood 263 mg/dL (75-99)
--- NOTE | 2016-09-20 13:56 | PN ---
A 70-year-old gentleman who is admitted to hospital with bradycardia, fatigue, non-ST segment elevation GA. He is feeling better this morning. Denies chest pain, difficulty in breathing. On exam, heart rate is 86 beats per minute, blood pressure is 90/60, respiratory rate is 18. Chest exam reveals diminished air entry at the bases. Heart exam reveals first and second heart sounds. No gallop. Exam of extremities did not reveal any edema. His INR is 1.6. ASSESSMENT: 1. Non-ST segment elevation myocardial infarction. 2. Coagulopathy. 3. Thrombocytopenia. PLAN: Will continue with supportive care and optimal medical therapy including aspirin, insulin, Levophed for the hypotension. He is not a candidate for any invasive procedures at this time.
[2016-09-20 17:20] LABS: Glucose,Whole Blood 311 mg/dL (75-99)
[2016-09-20] MEDS ORDERED: FUROSEMIDE 10 MG/ML 4 ML VIAL IV STA (17:21)
[2016-09-20] MEDS ORDERED: FUROSEMIDE 10 MG/ML 4 ML VIAL ONE (17:23)
[2016-09-20 20:27] LABS: Glucose,Whole Blood 326 mg/dL (75-99)
[2016-09-20] MEDS: INSULIN GLARGINE 100 UNIT/ML 10 ML VIAL SQ SCH (20:34)
--- NOTE | 2016-09-20 22:26 | PN ---
DATE OF SERVICE: 09/20/2016 This 70 -year-old gentleman admitted to the hospital with multiple medical problems, including acute non-ST elevation myocardial infarction, also had cardiogenic shock, and as well as history of primary hepatocellular carcinoma. The patient also belongs to [facility]. 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 Levophed is also being shut off at this time. PAST MEDICAL HISTORY: The patient has severe ischemic cardiomyopathy and ejection fraction in the 2-D echo done here showed ejection fraction less than 20% and multiple mild valvular abnormalities also. Past medical history reviewed. REVIEW OF SYSTEMS: Cardiovascular: As mentioned earlier. GASTROINTESTINAL: No nausea or vomiting. GENITOURINARY: No dysuria. CENTRAL NERVOUS SYSTEM: No focal deficits. Current medications are reviewed and include: 1. DuoNeb q.i.d. and p.r.n. 2. Aspirin 81 mg. 3. Symbicort 160/4.5, 2 puffs b.i.d. 5. Glucotrol 10 mg a.c. b.i.d. 6. Lantus 30 units subcu q.h.s. 7. Synthroid 120 mcg. 8. Tradjenta 5 mg p.o. daily. 9. Magnesium oxide. 11. Protonix 40 mg b.i.d. 12. Zosyn 3.37 IV q.8. 13. Lyrica 50 mg p.o. daily. 14. Aldactone 50 mg p.o. daily. PHYSICAL EXAMINATION: The patient is alert and oriented x3. Pulse 104, blood pressure 110/60, respirations 24, temperature normal, pulse ox 97% on 2 L. HEENT: Conjunctivae normal. Oral mucosa moist. NECK: No JVD. No carotid bruit. No lymph node enlargement. CARDIOVASCULAR: S1, S2 muffled. RESPIRATORY: Breath sounds diminished at the bases. Bilateral scattered rhonchi and crackles. Chest emphysematous. ABDOMEN: Soft. Obese, nontender. No mass palpable. LEGS: Minimal edema. CENTRAL NERVOUS SYSTEM: Higher functions as mentioned earlier. Moves all four limbs. No focal deficits. LYMPHATICS: No lymph nodes palpable in the neck, axillae or groin. SKIN: No ulcer, rash or bleeding. LABS: WBC 12.9, hemoglobin is 9.3, platelets are 137 and creatinine 1.3. Accu-Cheks are noted. LFTs are total bilirubin was 3. AST, ALT is also elevated. Creatinine kinase 5524, and troponin 2.100. ASSESSMENT: 1. Acute non- ST segment elevation myocardial infarction with troponin elevated up to 2.250. 2. Cardiogenic shock secondary from acute myocardial infarction on Levophed support. 3. Severe cardiomyopathy ejection fraction less than 20% with chronic congestive heart failure with chronic systolic dysfunction, possible ischemic cardiomyopathy. 4. Probably primary hepatocellular carcinoma history recently. 5. Diabetes mellitus type 2. 6. Change in mental status metabolic encephalopathy, multifactorial acute. 7. Increased bilirubin, AST, ALT, possibly secondary to hepatic malignancy. 8. Increased creatinine kinase. 9. Diabetes mellitus type 2, uncontrolled on insulin drip. 10. Hyponatremia. 11. Increased WBC. Secondary to possible sepsis. 12. Anemia, normocytic secondary to malignancy. 13. Thrombocytopenia, possibly secondary to malignancy. 14. History of coronary artery disease. 15. History of congestive heart failure with chronic systolic dysfunction, ejection fraction less than 20%. 16. Diabetes mellitus type 2. 17. Hypertension, essential. 18. Hyperlipidemia. 19. History of hypothyroidism. 20. History of coronary artery disease and stent. 21. History of gait dysfunction. 22. Acute renal failure, possible multifactorial, prerenal. 23. FULL CODE. RECOMMENDATIONS AND DISCUSSION: In this 70-year-old gentleman who presented with multiple complex medical issues, we will monitor the patient closely. Continue the current medications, continue with the bronchodilators. Continue with insulin as at home. Continue with antiplatelet agents. Closely follow with cardiology. The patient not a candidate for any beta blockers, KYLEIGH inhibitors because of hypotension. Monitor blood sugars closely. Empiric antibiotics were initiated. The cultures are negative. I would recommend repeat cultures. Repeat labs. Closely follow with multiple consultants, Cardiology and pulmonology. Guarded prognosis. Further recommendations to follow. MTDD
[2016-09-21] MEDS: PIPERACILLIN-TAZOBACTAM 3.375 GM in DEXTROSE/WATER 1 50ML.BAG IVPB SCH ×3 (00:20→18:20)
[2016-09-21 02:10] LABS: Glucose,Whole Blood 281 mg/dL (75-99)
[2016-09-21] MEDS: INSULIN LISPRO (humaLOG) 300 UNIT/3 ML VIAL SQ SCH ×8 (02:20→20:41)
[2016-09-21 05:04] LABS: INR 1.5 (<1.1)
[2016-09-21 05:05] LABS: ALT 136 U/L (21-72); AST 210 U/L (17-59); Alkaline Phosphatase 171 U/L (38-126); Anion Gap 10 mmol/L; Blood Urea Nitrogen 32 mg/dL (9-20); Carbon Dioxide 23 mmol/L (22-30); Chloride 97 mmol/L (98-107); Glucose 212 mg/dL (74-99); Non-African American GFR(MDRD) 60 (>60 ml/min/1.73 sqM); Potassium 3.8 mmol/L (3.5-5.1); Sodium 130 mmol/L (137-145); Total Bilirubin 2.7 mg/dL (0.2-1.3); Total Protein 4.6 g/dL (6.3-8.2)
[2016-09-21 05:13] LABS: Anisocytosis Slight; Aty Lym Flag Slight; CH 24.2; CHCM 29.5; HCT 29.5 % (39.0-53.0); HDW 4.26; HGB 8.8 gm/dL (13.0-17.5); Hypochromasia Marked; MCH 24.6 pg (25.0-35.0); MCHC 29.8 g/dL (31.0-37.0); MCV 82.5 fL (80.0-100.0); Mean Platelet Volume 8.5; Poikilocytosis Moderate; RBC 3.58 m/uL (4.30-5.90); RDW 17.8 % (11.5-15.5); WBC 11.2 k/uL (3.8-10.6); WBC (Perox) 11.31
[2016-09-21 06:21] LABS: Add Differential Manual Differential
[2016-09-21 06:26] LABS: Nucleated Red Blood Cells 0 /100 WBC (0-0); Total Cells Counted 100
[2016-09-21 06:28] LABS: Manual Review Performed
[2016-09-21] MEDS: POTASSIUM CHLORIDE 10 MEQ, LIDOCAINE 2% INJ 10 MG in SODIUM CHLORIDE 0.9% 100 ML IV SCH ×2 (06:34→08:37)
[2016-09-21] MEDS: LEVOTHYROXINE 125 MCG TAB PO SCH (06:34)
[2016-09-21] MEDS ORDERED: FUROSEMIDE 10 MG/ML 10 ML VIAL IV STA (07:12)
--- NOTE | 2016-09-21 07:48 | XR ---
EXAMINATION TYPE: XR chest 1V DATE OF EXAM: 09/21/2016 6:53 AM CLINICAL HISTORY: Difficulty breathing progress study. TECHNIQUE: Single AP portable upright view of the chest is obtained. COMPARISON: Chest x-ray from one day earlier FINDINGS: There is low lung volumes redemonstrated. Cardiac silhouette size is stable and upper limi ts of normal. There is increasing central vascular congestion with more focal right hilar opacity. Ramires spect stable tiny bilateral pleural effusions. No pneumothorax is seen bilaterally. Osseous structure s are intact. IMPRESSION: Persistent low lung volumes and tiny bilateral pleural effusions with developing right gr eater than left perihilar edema and/or infiltrates noted.
[2016-09-21 07:49] LABS: Glucose,Whole Blood 216 mg/dL (75-99)
[2016-09-21] MEDS: SYMBICORT 160-4.5 MCG INHALER INHALATION SCH ×2 (07:49→19:13)
[2016-09-21] MEDS: IPRATROPIUM-ALBUTEROL 3 ML NEB INHALATION PRN ×4 (07:49→19:13)
[2016-09-21] MEDS: NOREPINEPHRINE 4 MG in SODIUM CHLORIDE 0.9% 250 ML IV SCH (08:33)
[2016-09-21] MEDS: PANTOPRAZOLE 40 MG TABLET PO SCH ×2 (08:40→18:23)
[2016-09-21] MEDS: ASPIRIN 81 MG CHEW PO SCH (08:41)
[2016-09-21] MEDS: MAGNESIUM OXIDE 400 MG TAB PO SCH ×4 (08:41→20:42)
[2016-09-21] MEDS: PREGABALIN 50 MG CAP PO SCH (08:41)
[2016-09-21] MEDS: SPIRONOLACTONE 25 MG TAB PO SCH (08:41)
--- NOTE | 2016-09-21 12:12 | P.PN ---
Subjective Principal diagnosis: Acute non-ST segment elevation myocardial infarction This is a 70-year-old white male with history of coronary artery disease and severe ischemic cardiomyopathy, chronic congestive heart failure, diabetes, hypertension, hepatocellular carcinoma involving the liver, history of portal hypertension and esophageal varices requiring banding, patient usually follows at the [facility] for his cardiac issues. And he sees a county commissioner in the [facility] area. Patient was admitted this time with mostly multiple complaints including generalized weakness, fatigue, some shortness of breath. His troponins were noted to be elevated, and he was noted to have a non-ST segment elevation myocardial infarction. He was seen by cardiology, but he was not felt to be a candidate for much intervention. Patient was admitted, but because of low blood pressure while he was on the cardiac floor, patient was transferred to the ICU, and I was asked to see him on consultation. Patient was initially placed on Dobutrex, did not seem to help his blood pressure much, hence I discontinued Dobutrex and place him on norepinephrine and he is presently on 8 g of norepinephrine. Blood pressure seems to be better, urine output is improved with improvement of the blood pressure, and his chest x-ray showed mild congestive changes hence I gave the patient a dose of Lasix earlier today. Patient is not in any form of distress, but requiring levo fed to maintain adequate blood pressure. Patient denies any fever chills, no headaches no blurred vision no dizziness, no chest pain. He feels generally weak. Patient was reevaluated today on 09/20/2016, remains in the intensive care unit, remains on norepinephrine at 8 g, patient is making good urine output about 50- 100 mL/h without diuretics. Remains in the ICU mostly because of the blood pressure remains marginal and he remains on norepinephrine. Overall the patient is feeling better, breathing easier, continues to have a chest x-ray suggestive of mild congestive heart failure, continues to have crackles on physical examination bilaterally. Patient was supposed to be transferred to the [facility], but apparently no beds are available. CBC was reviewed INR is 1.6 electrolytes are normal BUN is 30 creatinine is 1.30 patient was reevaluated today on 09/21/2016, remains in the intensive care unit, remains on norepinephrine at 6 g, blood pressure remains marginal. Urine output responded earlier today to a dose of Lasix at 60 mg IV push given because his chest x-ray showed evidence of worsening pulmonary edema.hemoglobin is 8.8 today. Electrolytes were reviewed sodium is 130 BUN is 32 creatinine is 1.20 liver enzymes remain elevated Objective - Vital Signs Vital signs: Vital Signs Temp 98.3 F 09/21/16 08:00 Pulse 96 09/21/16 11:32 Resp 19 09/21/16 11:00 BP 85/67 09/21/16 11:00 Pulse Ox 94 L 09/21/16 11:00 Intake & Output 09/20/16 09/21/16 09/21/16 18:59 06:59 18:59 Intake Total 1182.822 525.178 165.0 Output Total 578 1200 485 Balance 604.822 -674.822 -320.0 Weight 104.8 kg Intake: IV 210 240 40 0.9 210 240 40 Intake, IV Titration 472.822 285.178 125.0 Amount Magnesium Sulfate-D5w Pmx 200 1 gm In Dextrose/Water 1 100ml.bag @ 100 mls/hr IVPB Q1H MAC Rx#: [id number] Norepinephrine 4 mg In 222.822 285.178 Sodium Chloride 0.9% 250 ml @ Titrate IV .Q0M MAC Rx#:[id number] Piperacillin-Tazobactam 3 50 25.0 .375 gm In Dextrose/Water 1 50ml.bag @ 12.5 mls/hr IVPB Q8HR MAC Rx#: [id number] Potassium Chloride 10 meq 100 Lidocaine 2% Inj 10 mg In Sodium Chloride 0.9% 100 ml @ 100 mls/hr IV Q1HR MAC Rx#:[id number] Oral 500 Output: Urine 578 1200 485 Other: Voiding Method Indwelling Catheter Indwelling Catheter - Exam Physical Exam: Revealed a 70-year-old white male in no distress HEENT:[Neck is supple.] [No neck masses.] [No thyromegaly.] [No JVD.] Chest: [Minimal fine crackles at the bases, no rhonchi, no wheezes] Cardiac Exam: [Normal S1 and S2, no S3 gallop, no murmur.] Abdomen: [Soft, nontender, no megaly, no rebound, no guarding, normal bowel sounds.] Extremities: [No clubbing, no edema, no cyanosis.] Neurological Exam: [No focal neurologic deficit.] - Labs CBC & Chem 7: 03/23/17 04:02 09/21/16 04:02 Labs: Abnormal Lab Results - Last 24 Hours (Table) 09/20/16 09/20/16 09/20/16 Range/Units 12:36 13:01 17:19 WBC (3.8-10.6) k/uL RBC (4.30-5.90) m/uL Hgb (13.0-17.5) gm/dL Hct (39.0-53.0) % MCH (25.0-35.0) pg MCHC (31.0-37.0) g/dL RDW (11.5-15.5) % Plt Count (150-450) k/uL Monocytes # (Manual) (0-1.0) k/uL PT (9.0-12.0) sec Sodium (137-145) mmol/L Chloride (98-107) mmol/L BUN (9-20) mg/dL Glucose (74-99) mg/dL POC Glucose (mg/dL) 264 H 263 H 311 H (75-99) mg/dL Calcium (8.4-10.2) mg/dL Total Bilirubin (0.2-1.3) mg/dL AST (17-59) U/L ALT (21-72) U/L Alkaline Phosphatase (38-126) U/L Total Protein (6.3-8.2) g/dL Albumin (3.5-5.0) g/dL 09/20/16 09/21/16 09/21/16 Range/Units 20:25 02:08 04:02 WBC 11.2 H (3.8-10.6) k/uL RBC 3.58 L (4.30-5.90) m/uL Hgb 8.8 L (13.0-17.5) gm/dL Hct 29.5 L (39.0-53.0) % MCH 24.6 L (25.0-35.0) pg MCHC 29.8 L (31.0-37.0) g/dL RDW 17.8 H (11.5-15.5) % Plt Count 102 L (150-450) k/uL Monocytes # (Manual) 1.8 H (0-1.0) k/uL PT (9.0-12.0) sec Sodium (137-145) mmol/L Chloride (98-107) mmol/L BUN (9-20) mg/dL Glucose (74-99) mg/dL POC Glucose (mg/dL) 326 H 281 H (75-99) mg/dL Calcium (8.4-10.2) mg/dL Total Bilirubin (0.2-1.3) mg/dL AST (17-59) U/L ALT (21-72) U/L Alkaline Phosphatase (38-126) U/L Total Protein (6.3-8.2) g/dL Albumin (3.5-5.0) g/dL 09/21/16 09/21/16 09/21/16 Range/Units 04:02 04:02 07:47 WBC (3.8-10.6) k/uL RBC (4.30-5.90) m/uL Hgb (13.0-17.5) gm/dL Hct (39.0-53.0) % MCH (25.0-35.0) pg MCHC (31.0-37.0) g/dL RDW (11.5-15.5) % Plt Count (150-450) k/uL Monocytes # (Manual) (0-1.0) k/uL PT 15.0 H (9.0-12.0) sec Sodium 130 L (137-145) mmol/L Chloride 97 L (98-107) mmol/L BUN 32 H (9-20) mg/dL Glucose 212 H (74-99) mg/dL POC Glucose (mg/dL) 216 H (75-99) mg/dL Calcium 8.0 L (8.4-10.2) mg/dL Total Bilirubin 2.7 H (0.2-1.3) mg/dL AST 210 H (17-59) U/L ALT 136 H (21-72) U/L Alkaline Phosphatase 171 H (38-126) U/L Total Protein 4.6 L (6.3-8.2) g/dL Albumin 2.0 L (3.5-5.0) g/dL Microbiology - Last 24 Hours (Table) 09/18/16 20:50 Blood Culture - Preliminary Blood No Growth after 48 hours 09/18/16 23:00 Urine Culture - Final Urine,Clean Catch Assessment and Plan Plan: Impression: 1 acute non-ST segment elevation myocardial infarction 2 severe ischemic cardiomyopathy and poor LV function 3 chronic congestive heart failure secondary to above 4 history of hepatocellular carcinoma 5 hypotension secondary to above, mostly secondary to his poor LV function and cardiomyopathy. 6 elevated liver enzymes secondary to her underlying hepatocellular disease/ hepatocellular carcinoma 7 type 2 diabetes poorly controlled 8 history of hypertension 9 history of hypothyroidism 10 history of chronic anemia and previous history of GI blood losses. Recommendation: Continue present supportive care measures, patient is presently on norepinephrine, will titrate down as tolerated, patient will be diuresed gently to keep his fluid status under control. Not quite ready to be discharged to the ICU at this point, we'll continue to follow closely. Time with Patient: Less than 30
[2016-09-21 12:25] LABS: Glucose,Whole Blood 280 mg/dL (75-99)
--- NOTE | 2016-09-21 16:26 | PN ---
Marquis Tse is a 70-year-old gentleman. Patient admitted by Dr. Ponce. Consultation requested by Dr. Ponce. Patient was seen by my associate, Dr. Leo. Patient is known to have severe ischemic cardiomyopathy with hepatocellular carcinoma and liver enzyme elevations and chronic congestive heart failure secondary to severely impaired LV function, ejection fraction of less than 20%. History of GI bleed and history of coagulopathy and thrombocytopenia with multiple medical problems. Patient follows at [facility]. The patient was not felt to be a candidate for any invasive interventions. Patient has been also hypotensive requiring epinephrine, which has been gradually coming down from 8 mcg initially down to 4 mcg. Patient is getting Lasix with reasonable output. Patient is alert and oriented. Denies any chest pain or pressure. Patient also has a history of GI bleeding. Patient is making fair progress. Continued supportive care is recommended. Concur with current therapy. Patient's vital signs are stable with a pulse rate of 90 beats per minute and regular, blood pressure 85/64. Respirations of 19. HEAD: Normocephalic. JVD is elevated to the angle of jaw. CARDIAC EXAMINATION: S1 and S2. S3 gallop. LUNGS: Revealed crackles over one third of the lower half of the lung rashid. S3 gallop. ABDOMEN: Obese. EXTREMITIES: 2 to 3+ pedal edema. Decreased pedal pulses. The patient will be continued on supportive care and will see him as our services are needed. Changes of doing any intervention on this patient is very low. With a creatinine of 1.2 and BUN of 32, potassium of 3.8. Patient's medications at the present time include in addition to epinephrine up to 4 mcg patient is on insulin, Lasix as needed only, levothyroxine 120 mcg, linagliptin 5 mg p.o. daily, magnesium 400 mg p.o. q.i.d., nitroglycerin sublingually p.r.n. for chest pain, Protonix 40 mg p.o. a.c. and b.i.d. Patient is also on piperacillin-tazobactam and spironolactone 50 mg p.o. daily, glipizide 10 mg p.o. b.i.d., Lyrica 50 mg p.o. daily. ASSESSMENT: 1. Ischemic cardiomyopathy with hypotension. 2. Severely impaired left ventricle function. 3. Diabetes mellitus. 4. Hepatocellular carcinoma. 5. Hypotension secondary to poor LV function and cardiomyopathy. 6. Liver enzymes elevated related to his hepatocellular carcinoma. 7. History of hypertension. 8. History of GI bleed. 9. Diabetes, poorly controlled. Patient's prognosis is guarded in spite of therapy.
[2016-09-21 17:57] LABS: Glucose,Whole Blood 239 mg/dL (75-99)
--- NOTE | 2016-09-21 19:05 | PN ---
This 70-year-old gentleman admitted with acute non-ST segment elevation myocardial infarction had complications and cardiac shock with severe cardiomyopathy, ejection fraction less than 20%. Patient being closely monitored in the ICU at this time. The patient is on Levophed drip. Patient being monitored closely. Dr. Figueroa and cardiology are following the patient closely. Please note that the patient has previous appointments in the [facility] and [facility] in [place]. Past medical history reviewed. REVIEW OF SYSTEMS: CARDIOVASCULAR: palpitation, otherwise, as mentioned earlier. RESPIRATORY: Occasional cough. GI: No nausea. : No dysuria. Nervous system: No numbness or weakness. Current medications are reviewed and include: 1. DuoNeb q.i.d. and p.r.n. 2. Aspirin 81 mg p.o. daily. 3. Symbicort 160/4.5, 2 puffs b.i.d. 4. Flonase 2 sprays daily p.r.n. 5. Glucotrol 10 mg a.c. b.i.d. 6. Lantus 35 unites subcu bedtime. 7. Humalog scale. 8. Synthroid 125 mcg p.o. daily. 9. Trantan 5 milligrams p.o. daily. 10. Magnesium oxide 400 mg p.o. q.i.d. 11. Replacement protocols. 12. Nitrostat 0.4 sublingual p.r.n. 13. Norepinephrine 4 mg p.r.n. 14. Protonix 40 mg b.i.d. 15. Lyrica 50 mg daily. 16. Aldactone 50 mg p.o. daily. PHYSICAL EXAMINATION: Patient is alert and oriented x3. Pulse is 106, blood pressure is 96/52, respiratory rate 20, temperature 98.4, pulse ox 92% on 3 liters. HEENT: Conjunctivae normal. NECK: No jugular venous distention. CARDIOVASCULAR: S1, S2 muffled. RESPIRATORY: Breath sounds diminished at the bases. A few scattered rhonchi and crackles. ABDOMEN: Soft, nontender. No mass palpable. LEGS: No edema. No swelling. Nervous system: Diffusely weak. LABS: Hemoglobin 11.8. Hemoglobin 8.8. Creatinine, INR 1.5. Sodium is 130, total bilirubin is 2.7 and AST is 136. Shows some mild improvement and the troponin is 2.250. Albumin is 2. ASSESSMENT: 1. Acute non-ST segment elevation myocardial infarction with troponin elevated up the patient 2.250. 2. Cardiogenic shock secondary to acute myocardial infarction on Levophed support. 3. Severe cardiomyopathy, ejection fraction less than 20% with ischemic cardiomyopathy, possibly with chronic congestive heart failure with chronic systolic dysfunction. 4. Possible bibasilar pneumonia, atelectasis, possibly gram-negative. 5. Possibly primary hepatocellular carcinoma recently. 6. Diabetes mellitus type 2. 7. Change in mental status, acute metabolic encephalopathy, multifactorial. 8. Increased bilirubin, AST, ALT, possibly secondary to hepatic malignancy. 9. Increased creatinine kinase. 10. Diabetes mellitus type 2, uncontrolled on insulin drip. 11. Hyponatremia. 12. Increased WBC, possibly secondary to sepsis. 13. Anemia, normocytic secondary to malignancy. 14. Thrombocytopenia, possibly secondary malignancy. 15. History of coronary artery disease. 16. History of congestive heart failure with chronic systolic dysfunction ejection fraction 20%. 17. Diabetes mellitus type 2. 18. Hypertension essential. 19. Hyperlipidemia. 20. History of hypothyroidism. 21. History of coronary artery disease, stent. 22. Gait dysfunction. 23. Acute renal failure, possibly multifactorial, prerenal. 24. FULL CODE. RECOMMENDATIONS AND DISCUSSION: In this 70-year-old gentleman who presented with multiple complex medical issues, at this time, I recommend to continue the current medications. Continue symptomatic treatment. The patient's prognosis is extremely guarded. Even now, the patient is being closely monitored in the ICU. The patient is on multiple medications and pressure support also. Closely monitor with multiple consultants. The patient not a candidate for beta blockers at this time. Otherwise, [facility]. Prognosis guarded because of multiple complex medical issues. LFTs are also elevated. Patient has multiple medical issues as mentioned earlier. Cultures are negative at this time. The patient is on empiric antibiotics as well. Guarded prognosis. Further recommendations to follow. Empiric antibiotics. MTDD
[2016-09-21 20:38] LABS: Glucose,Whole Blood 277 mg/dL (75-99)
[2016-09-21] MEDS: INSULIN GLARGINE 100 UNIT/ML 10 ML VIAL SQ SCH (20:41)
[2016-09-22] MEDS: PIPERACILLIN-TAZOBACTAM 3.375 GM in DEXTROSE/WATER 1 50ML.BAG IVPB SCH ×4 (01:02→23:04)
[2016-09-22] MEDS: NOREPINEPHRINE 4 MG in SODIUM CHLORIDE 0.9% 250 ML IV SCH (01:03)
[2016-09-22 02:21] LABS: Glucose,Whole Blood 209 mg/dL (75-99)
[2016-09-22] MEDS: INSULIN LISPRO (humaLOG) 300 UNIT/3 ML VIAL SQ SCH ×8 (02:57→20:38)
[2016-09-22 04:55] LABS: Anisocytosis Slight; Aty Lym Flag Slight; CH 23.7; CHCM 28.7; HCT 29.4 % (39.0-53.0); HDW 4.34; HGB 8.6 gm/dL (13.0-17.5); Hypochromasia Marked; MCH 24.2 pg (25.0-35.0); MCHC 29.2 g/dL (31.0-37.0); MCV 82.8 fL (80.0-100.0); Mean Platelet Volume 8.4; Poikilocytosis Moderate; RBC 3.56 m/uL (4.30-5.90); RDW 17.4 % (11.5-15.5); WBC 11.2 k/uL (3.8-10.6); WBC (Perox) 12.31
[2016-09-22 05:13] LABS: INR 1.4 (<1.1); Prothrombin Time 14.1 sec (9.0-12.0)
[2016-09-22 05:25] LABS: ALT 145 U/L (21-72); AST 210 U/L (17-59); Alkaline Phosphatase 170 U/L (38-126); Anion Gap 9 mmol/L; Blood Urea Nitrogen 35 mg/dL (9-20); Calcium 8.2 mg/dL (8.4-10.2); Carbon Dioxide 23 mmol/L (22-30); Chloride 96 mmol/L (98-107); Glucose 159 mg/dL (74-99); Magnesium 1.9 mg/dL (1.6-2.3); Non-African American GFR(MDRD) 60 (>60 ml/min/1.73 sqM); Phosphorous 3.3 mg/dL (2.5-4.5); Potassium 4.1 mmol/L (3.5-5.1); Sodium 128 mmol/L (137-145); Total Bilirubin 2.7 mg/dL (0.2-1.3); Total Protein 4.9 g/dL (6.3-8.2)
[2016-09-22 06:34] LABS: Add Differential Manual Differential
[2016-09-22 06:39] LABS: Band Neutrophils % 2.5 %; Nucleated Red Blood Cells 0 /100 WBC (0-0); Polychromasia Present; Total Cells Counted 200
[2016-09-22] MEDS: LEVOTHYROXINE 125 MCG TAB PO SCH (06:46)
[2016-09-22] MEDS: MAGNESIUM SULFATE-D5W PMX 1 GM in DEXTROSE/WATER 1 100ML.BAG IVPB SCH ×2 (06:47→08:47)
[2016-09-22] MEDS: IPRATROPIUM-ALBUTEROL 3 ML NEB INHALATION PRN ×4 (07:17→20:02)
[2016-09-22] MEDS: SYMBICORT 160-4.5 MCG INHALER INHALATION SCH ×2 (07:17→20:02)
[2016-09-22 07:30] LABS: Glucose,Whole Blood 180 mg/dL (75-99)
--- NOTE | 2016-09-22 08:32 | XR ---
EXAMINATION TYPE: XR chest 1V DATE OF EXAM: 09/22/2016 6:24 AM HISTORY: SOB. REFERENCE: Previous study dated 09/21/2016. FINDINGS: The patient has taken a poor inspiration. There is bibasilar atelectasis. The heart is not enlarged. There is blunting of both CP angles. I could not exclude small effusions. IMPRESSION: 1. STUDY LIMITED BY POOR INSPIRATION. 2. BIBASILAR ATELECTASIS. 3. SMALL, BILATERAL EFFUSIONS.
[2016-09-22] MEDS: PANTOPRAZOLE 40 MG TABLET PO SCH ×2 (08:47→17:20)
[2016-09-22] MEDS: PREGABALIN 50 MG CAP PO SCH (08:49)
[2016-09-22] MEDS: ASPIRIN 81 MG CHEW PO SCH (08:49)
[2016-09-22] MEDS: SPIRONOLACTONE 25 MG TAB PO SCH (08:49)
[2016-09-22] MEDS: MAGNESIUM OXIDE 400 MG TAB PO SCH ×4 (08:49→20:30)
--- NOTE | 2016-09-22 10:28 | P.PN ---
Subjective Principal diagnosis: Acute non-ST segment elevation myocardial infarction This is a 70-year-old white male with history of coronary artery disease and severe ischemic cardiomyopathy, chronic congestive heart failure, diabetes, hypertension, hepatocellular carcinoma involving the liver, history of portal hypertension and esophageal varices requiring banding, patient usually follows at the [facility] for his [facility] issues. And he sees a vascular technologist in the [facility] area. Patient was admitted this time with mostly multiple complaints including generalized weakness, fatigue, some shortness of breath. His troponins were noted to be elevated, and he was noted to have a non-ST segment elevation myocardial infarction. He was seen by cardiology, but he was not felt to be a candidate for much intervention. Patient was admitted, but because of low blood pressure while he was on the cardiac floor, patient was transferred to the ICU, and I was asked to see him on consultation. Patient was initially placed on Dobutrex, did not seem to help his blood pressure much, hence I discontinued Dobutrex and place him on norepinephrine and he is presently on 8 g of norepinephrine. Blood pressure seems to be better, urine output is improved with improvement of the blood pressure, and his chest x-ray showed mild congestive changes hence I gave the patient a dose of Lasix earlier today. Patient is not in any form of distress, but requiring levo fed to maintain adequate blood pressure. Patient denies any fever chills, no headaches no blurred vision no dizziness, no chest pain. He feels generally weak. Patient was reevaluated today on 09/20/2016, remains in the intensive care unit, remains on norepinephrine at 8 g, patient is making good urine output about 50- 100 mL/h without diuretics. Remains in the ICU mostly because of the blood pressure remains marginal and he remains on norepinephrine. Overall the patient is feeling better, breathing easier, continues to have a chest x-ray suggestive of mild congestive heart failure, continues to have crackles on physical examination bilaterally. Patient was supposed to be transferred to the [facility], but apparently no beds are available. CBC was reviewed INR is 1.6 electrolytes are normal BUN is 30 creatinine is 1.30 patient was reevaluated today on 09/21/2016, remains in the intensive care unit, remains on norepinephrine at 6 g, blood pressure remains marginal. Urine output responded earlier today to a dose of Lasix at 60 mg IV push given because his chest x-ray showed evidence of worsening pulmonary edema.hemoglobin is 8.8 today. Electrolytes were reviewed sodium is 130 BUN is 32 creatinine is 1.20 liver enzymes remain elevated Patient was reevaluated today on 09/22/2016, remains in the intensive care unit, his norepinephrine was discontinued a few hours ago, and his blood pressure seems to be relatively stable. Patient did not receive any Lasix this morning, urine output is about 30 mL per hour. His chest x-ray is showing improvement no evidence of pulmonary edema compared to the chest x-ray yesterday. Apparently he responded well to the Lasix that was given yesterday. Hence I will maintain the patient on a daily dose of Lasix of 40 mg IV push daily.CBC is relatively normal however his hemoglobin is 8.6. INR is 1.4 sodium is 128 BUN is 35 creatinine is 1.20. Today the patient will not receive Lasix. But he was started on a maintenance dose as of tomorrow morning. Clinically he is about the same. Feels generally weak, but no shortness of breath no chest pain no cough no wheezing. No nausea no vomiting no abdominal pain. Objective - Vital Signs Vital signs: Vital Signs Temp 97.9 F 09/22/16 08:00 Pulse 109 H 09/22/16 09:00 Resp 25 H 09/22/16 09:00 BP 107/69 09/22/16 09:00 Pulse Ox 95 09/22/16 09:00 Intake & Output 09/21/16 09/22/16 09/22/16 18:59 06:59 18:59 Intake Total 567.165 409.755 213.81 Output Total 970 500 110 Balance -402.835 -90.245 103.81 Weight 107.8 kg Intake: IV 140 270 110 0.9 140 220 60 Piperacillin-Tazobactam 3 50 50 .375 gm In Dextrose/Water 1 50ml.bag @ 12.5 mls/hr IVPB Q8HR [facility] Rx#: [id number] Intake, IV Titration 327.165 139.755 103.81 Amount Magnesium Sulfate-D5w Pmx 100 1 gm In Dextrose/Water 1 100ml.bag @ 100 mls/hr IVPB Q1H [facility] Rx#: [id number] Norepinephrine 4 mg In 177.165 127.255 3.81 Sodium Chloride 0.9% 250 ml @ Titrate IV .Q0M [facility] Rx#:[id number] Piperacillin-Tazobactam 3 50.0 12.5 .375 gm In Dextrose/Water 1 50ml.bag @ 12.5 mls/hr IVPB Q8HR [facility] Rx#: [id number] Potassium Chloride 10 meq 100 Lidocaine 2% Inj 10 mg In Sodium Chloride 0.9% 100 ml @ 100 mls/hr IV Q1HR [facility] Rx#:[id number] Oral 100 Output: Urine 970 500 110 Other: Voiding Method Indwelling Catheter Indwelling Catheter # Bowel Movements 1 - Exam Physical Exam: Revealed a 70-year-old white male in no distress HEENT:[Neck is supple.] [No neck masses.] [No thyromegaly.] [No JVD.] Chest: [Minimal fine crackles at the bases, no rhonchi, no wheezes] Cardiac Exam: [Normal S1 and S2, no S3 gallop, no murmur.] Abdomen: [Soft, nontender, no megaly, no rebound, no guarding, normal bowel sounds.] Extremities: [No clubbing, no edema, no cyanosis.] Neurological Exam: [No focal neurologic deficit.] - Labs CBC & Chem 7: 09/22/16 04:01 09/22/16 04:01 Labs: Abnormal Lab Results - Last 24 Hours (Table) 09/21/16 09/21/16 09/21/16 Range/Units 12:23 17:55 20:36 WBC (3.8-10.6) k/uL RBC (4.30-5.90) m/uL Hgb (13.0-17.5) gm/dL Hct (39.0-53.0) % MCH (25.0-35.0) pg MCHC (31.0-37.0) g/dL RDW (11.5-15.5) % Plt Count (150-450) k/uL Neutrophils # (Manual) (1.3-7.7) k/uL PT (9.0-12.0) sec Sodium (137-145) mmol/L Chloride (98-107) mmol/L BUN (9-20) mg/dL Glucose (74-99) mg/dL POC Glucose (mg/dL) 280 H 239 H 277 H (75-99) mg/dL Calcium (8.4-10.2) mg/dL Total Bilirubin (0.2-1.3) mg/dL AST (17-59) U/L ALT (21-72) U/L Alkaline Phosphatase (38-126) U/L Total Protein (6.3-8.2) g/dL Albumin (3.5-5.0) g/dL 09/22/16 09/22/16 09/22/16 Range/Units 02:19 04:01 04:01 WBC 11.2 H (3.8-10.6) k/uL RBC 3.56 L (4.30-5.90) m/uL Hgb 8.6 L (13.0-17.5) gm/dL Hct 29.4 L (39.0-53.0) % MCH 24.2 L (25.0-35.0) pg MCHC 29.2 L (31.0-37.0) g/dL RDW 17.4 H (11.5-15.5) % Plt Count 116 L (150-450) k/uL Neutrophils # (Manual) 8.5 H (1.3-7.7) k/uL PT 14.1 H (9.0-12.0) sec Sodium (137-145) mmol/L Chloride (98-107) mmol/L BUN (9-20) mg/dL Glucose (74-99) mg/dL POC Glucose (mg/dL) 209 H (75-99) mg/dL Calcium (8.4-10.2) mg/dL Total Bilirubin (0.2-1.3) mg/dL AST (17-59) U/L ALT (21-72) U/L Alkaline Phosphatase (38-126) U/L Total Protein (6.3-8.2) g/dL Albumin (3.5-5.0) g/dL 09/22/16 09/22/16 Range/Units 04:01 07:28 WBC (3.8-10.6) k/uL RBC (4.30-5.90) m/uL Hgb (13.0-17.5) gm/dL Hct (39.0-53.0) % MCH (25.0-35.0) pg MCHC (31.0-37.0) g/dL RDW (11.5-15.5) % Plt Count (150-450) k/uL Neutrophils # (Manual) (1.3-7.7) k/uL PT (9.0-12.0) sec Sodium 128 L (137-145) mmol/L Chloride 96 L (98-107) mmol/L BUN 35 H (9-20) mg/dL Glucose 159 H (74-99) mg/dL POC Glucose (mg/dL) 180 H (75-99) mg/dL Calcium 8.2 L (8.4-10.2) mg/dL Total Bilirubin 2.7 H (0.2-1.3) mg/dL AST 210 H (17-59) U/L ALT 145 H (21-72) U/L Alkaline Phosphatase 170 H (38-126) U/L Total Protein 4.9 L (6.3-8.2) g/dL Albumin 2.2 L (3.5-5.0) g/dL Microbiology - Last 24 Hours (Table) 09/18/16 20:50 Blood Culture - Preliminary Blood No Growth after 72 hours Assessment and Plan Plan: Impression: 1 acute non-ST segment elevation myocardial infarction 2 severe ischemic cardiomyopathy and poor LV function 3 chronic congestive heart failure secondary to above 4 history of hepatocellular carcinoma 5 hypotension secondary to above, mostly secondary to his poor LV function and cardiomyopathy. 6 elevated liver enzymes secondary to her underlying hepatocellular disease/ hepatocellular carcinoma 7 type 2 diabetes poorly controlled 8 history of hypertension 9 history of hypothyroidism 10 history of chronic anemia and previous history of GI blood losses. Recommendation: Continue present supportive care measures, norepinephrine was discontinued today, and if the blood pressure remains stable, may consider transferring the patient to a cardiac floor today. Time with Patient: Less than 30
[2016-09-22] MEDS ORDERED: FUROSEMIDE 10 MG/ML 10 ML VIAL IV STA (11:17)
--- NOTE | 2016-09-22 11:34 | P.PN ---
Subjective Principal diagnosis: CAD/cardiomyopathy This is a pleasant 70-year-old gentleman who was admitted to the hospital with acute coronary event and acute non-ST elevation myocardial infarction. He underwent an echocardiogram which showed severe cardiomyopathy. The patient has multiple comorbid conditions and it was felt that he is not a candidate to have any invasive cardiac approach. Clinically he denies having any chest pain or discomfort. He continues to have shortness of breath. Hemodynamically he was requesting vasopressors but he is off vasopressors today. He continues to be tachycardic with a sinus tachycardia. I am going to start the patient on a small dose of metoprolol and see if his blood pressure will tolerate that. We will consider starting the patient on the cardiomyopathy medications if the blood pressure continues to be stable. Objective - Vital Signs Vital signs: Vital Signs Temp 97.9 F 09/22/16 08:00 Pulse 103 H 09/22/16 11:11 Resp 18 09/22/16 11:00 BP 101/63 09/22/16 11:00 Pulse Ox 92 L 09/22/16 11:00 Intake & Output 09/21/16 09/22/16 09/22/16 18:59 06:59 18:59 Intake Total 567.165 409.755 253.81 Output Total 970 500 150 Balance -402.835 -90.245 103.81 Weight 107.8 kg Intake: IV 140 270 150 0.9 140 220 100 Piperacillin-Tazobactam 3 50 50 .375 gm In Dextrose/Water 1 50ml.bag @ 12.5 mls/hr IVPB Q8HR [facility] Rx#: [id number] Intake, IV Titration 327.165 139.755 103.81 Amount Magnesium Sulfate-D5w Pmx 100 1 gm In Dextrose/Water 1 100ml.bag @ 100 mls/hr IVPB Q1H [facility] Rx#: [id number] Norepinephrine 4 mg In 177.165 127.255 3.81 Sodium Chloride 0.9% 250 ml @ Titrate IV .Q0M [facility] Rx#:[id number] Piperacillin-Tazobactam 3 50.0 12.5 .375 gm In Dextrose/Water 1 50ml.bag @ 12.5 mls/hr IVPB Q8HR [facility] Rx#: [id number] Potassium Chloride 10 meq 100 Lidocaine 2% Inj 10 mg In Sodium Chloride 0.9% 100 ml @ 100 mls/hr IV Q1HR [facility] Rx#:[id number] Oral 100 Output: Urine 970 500 150 Other: Voiding Method Indwelling Catheter Indwelling Catheter Indwelling Catheter # Bowel Movements 1 ABP, PAP, CO, CI - Last Documented Arterial Blood Pressure 106/58 - Constitutional General appearance: Present: no acute distress - Respiratory Respiratory: bilateral: wheezing - Cardiovascular Rhythm: regular Heart sounds: normal: S1, S2 - Labs CBC & Chem 7: 09/22/16 04:01 09/22/16 04:01 Labs: Abnormal Lab Results - Last 24 Hours (Table) 09/21/16 09/21/16 09/21/16 Range/Units 12:23 17:55 20:36 WBC (3.8-10.6) k/uL RBC (4.30-5.90) m/uL Hgb (13.0-17.5) gm/dL Hct (39.0-53.0) % MCH (25.0-35.0) pg MCHC (31.0-37.0) g/dL RDW (11.5-15.5) % Plt Count (150-450) k/uL Neutrophils # (Manual) (1.3-7.7) k/uL PT (9.0-12.0) sec Sodium (137-145) mmol/L Chloride (98-107) mmol/L BUN (9-20) mg/dL Glucose (74-99) mg/dL POC Glucose (mg/dL) 280 H 239 H 277 H (75-99) mg/dL Calcium (8.4-10.2) mg/dL Total Bilirubin (0.2-1.3) mg/dL AST (17-59) U/L ALT (21-72) U/L Alkaline Phosphatase (38-126) U/L Total Protein (6.3-8.2) g/dL Albumin (3.5-5.0) g/dL 09/22/16 09/22/16 09/22/16 Range/Units 02:19 04:01 04:01 WBC 11.2 H (3.8-10.6) k/uL RBC 3.56 L (4.30-5.90) m/uL Hgb 8.6 L (13.0-17.5) gm/dL Hct 29.4 L (39.0-53.0) % MCH 24.2 L (25.0-35.0) pg MCHC 29.2 L (31.0-37.0) g/dL RDW 17.4 H (11.5-15.5) % Plt Count 116 L (150-450) k/uL Neutrophils # (Manual) 8.5 H (1.3-7.7) k/uL PT 14.1 H (9.0-12.0) sec Sodium (137-145) mmol/L Chloride (98-107) mmol/L BUN (9-20) mg/dL Glucose (74-99) mg/dL POC Glucose (mg/dL) 209 H (75-99) mg/dL Calcium (8.4-10.2) mg/dL Total Bilirubin (0.2-1.3) mg/dL AST (17-59) U/L ALT (21-72) U/L Alkaline Phosphatase (38-126) U/L Total Protein (6.3-8.2) g/dL Albumin (3.5-5.0) g/dL 09/22/16 09/22/16 Range/Units 04:01 07:28 WBC (3.8-10.6) k/uL RBC (4.30-5.90) m/uL Hgb (13.0-17.5) gm/dL Hct (39.0-53.0) % MCH (25.0-35.0) pg MCHC (31.0-37.0) g/dL RDW (11.5-15.5) % Plt Count (150-450) k/uL Neutrophils # (Manual) (1.3-7.7) k/uL PT (9.0-12.0) sec Sodium 128 L (137-145) mmol/L Chloride 96 L (98-107) mmol/L BUN 35 H (9-20) mg/dL Glucose 159 H (74-99) mg/dL POC Glucose (mg/dL) 180 H (75-99) mg/dL Calcium 8.2 L (8.4-10.2) mg/dL Total Bilirubin 2.7 H (0.2-1.3) mg/dL AST 210 H (17-59) U/L ALT 145 H (21-72) U/L Alkaline Phosphatase 170 H (38-126) U/L Total Protein 4.9 L (6.3-8.2) g/dL Albumin 2.2 L (3.5-5.0) g/dL Microbiology - Last 24 Hours (Table) 09/18/16 20:50 Blood Culture - Preliminary Blood No Growth after 72 hours Assessment and Plan Plan: assessment Acute non-ST elevation myocardial infarction Severe ischemiccardiomyopathy hypertension which seems to be improved multiple comorbid conditions Plan Start the patient on small dose of beta stephanie Follow-up with the patient
[2016-09-22 11:58] LABS: Glucose,Whole Blood 248 mg/dL (75-99)
[2016-09-22 17:19] LABS: Glucose,Whole Blood 240 mg/dL (75-99)
[2016-09-22] MEDS: glipiZIDE 10 MG TAB PO SCH (17:19)
--- NOTE | 2016-09-22 18:40 | PN ---
DATE OF SERVICE: 09/22/2016 This 70-year-old gentleman who was admitted with acute mzo-RI-tyxijpq-elevation myocardial infarction as well as cardiogenic shock and severe cardiomyopathy is being closely monitored. The patient is off Levophed support at this time. also pending medication adjustment. Cardiology and Pulmonology are following the patient. Patient is closely monitored in the ICU. [facility], but apparently there are no bedside available for possible transfer. Past medical history reviewed. REVIEW OF SYSTEMS: CARDIOVASCULAR: As mentioned earlier. RESPIRATORY: As mentioned earlier. GI: No nausea. : No dysuria. NERVOUS SYSTEM: No numbness or weakness. Current medications are reviewed and include: 1. DuoNeb q.i.d. and p.r.n. 2. Aspirin 81 mg daily. 3. Symbicort 160/4.5 two puffs b.i.d. 4. Flonase. 5. Lasix 40 mg IV daily. 6. Glucotrol 10 mg b.i.d. 7. Lantus 35 units subcutaneously at bedtime. 8. Humalog. 9. Synthroid 125 mcg p.o. daily. 10. Tradjenta 5 mg p.o. daily. 11. Magnesium oxide 400 mg q.i.d. 12. Lopressor 12.5 mg b.i.d. 13. Magnesium protocol. 14. Protonix 40 mg before meals b.i.d. 15. Zosyn 3.375 IV q.8. 16. Lyrica 50 mg p.o. daily. 17. Aldactone 50 mg p.o. daily. PHYSICAL EXAMINATION: Patient is alert and oriented x3. Pulse 104, blood pressure 98/57, respiration 26, temperature normal, pulse ox 93% on 2 L. HEENT: Conjunctivae normal. Oral mucosa moist. NECK: No jugular venous distention. No carotid bruit. No lymph node enlargement. CARDIOVASCULAR SYSTEM: S1 normal. S2 normal. No S3. No S4. RESPIRATORY SYSTEM: Breath sounds diminished at the bases. A few scattered rhonchi and crackles. ABDOMEN: Soft. Mild diffuse distention present. LEGS: Minimal edema. NERVOUS SYSTEM: No focal deficit. LABS: WBC 11.2, hemoglobin 8.6. INR is 1.4. Sodium 128. Total bilirubin is 2.7. AST is 210. ALT is 145. Albumin is 2.2. The liver numbers are rather stable at this time. ASSESSMENT: 1. Acute zpu-DU-jljygwt-elevation myocardial infarction with troponin elevated up to 2.250. 2. Cardiogenic shock secondary to acute myocardial infarction and hypotension, on Levophed support. 3. Severe cardiomyopathy; ejection fraction less than 20%; with ischemic cardiomyopathy, possibly with chronic congestive heart failure with chronic systolic dysfunction. 4. Possible bibasilar pneumonia, atelectasis, possibly Gram-negative. 5. Possible primary hepatocellular carcinoma recently. 6. Diabetes mellitus, type 2. 7. Change in mental status, acute metabolic encephalopathy, multifactorial. 8. Increased bilirubin, AST, ALT, possibly secondary to hepatic malignancy. 9. Increased creatine kinase. 10. Diabetes mellitus, type 2, uncontrolled, on insulin drip. 11. Hyponatremia. 12. Increased white count, possibly secondary to sepsis. 13. Anemia, normocytic, secondary to malignancy. 14. Thrombocytopenia, possibly secondary to malignancy. 15. History of coronary artery disease. 16. History of congestive heart failure with chronic systolic dysfunction; ejection fraction 20%. 17. Diabetes mellitus, type 2. 18. Hypertension, essential. 19. Hyperlipidemia. 20. History of hypothyroidism. 21. History of coronary artery disease, stent. 22. Gait dysfunction. 23. Acute renal failure, possibly multifactorial, prerenal. 24. FULL CODE. RECOMMENDATIONS AND DISCUSSION: In this 70-year-old gentleman who presented with multiple complex medical issues, we will monitor the patient closely, continue the current medications, continue symptomatic treatment. Otherwise, off Levophed. Monitor blood pressure closely. Repeat labs. Continue the antiplatelet agents. Continue the rest of the medications. Prognosis guarded. [facility]. Closely monitor. Closely follow with Dr. Hyman as well as Pulmonology. Guarded prognosis. Further recommendations to follow. MTDD
[2016-09-22] MEDS: METOPROLOL TARTRATE 12.5 MG TAB PO SCH (20:29)
[2016-09-22] MEDS: INSULIN GLARGINE 100 UNIT/ML 10 ML VIAL SQ SCH (20:37)
[2016-09-22 20:40] LABS: Glucose,Whole Blood 263 mg/dL (75-99)
[2016-09-22] MEDS: ACETAMINOPHEN TAB 325 MG TAB PO PRN (23:41)
[2016-09-22] MEDS: MELATONIN 3 MG TABLET PO SCH (23:42)
[2016-09-23 02:10] LABS: Glucose,Whole Blood 166 mg/dL (75-99)
[2016-09-23] MEDS: INSULIN LISPRO (humaLOG) 300 UNIT/3 ML VIAL SQ SCH ×8 (02:10→21:26)
[2016-09-23] MEDS: IPRATROPIUM-ALBUTEROL 3 ML NEB INHALATION PRN ×5 (04:02→20:12)
[2016-09-23 06:33] LABS: Glucose,Whole Blood 121 mg/dL (75-99)
[2016-09-23] MEDS: LEVOTHYROXINE 125 MCG TAB PO SCH (07:01)
[2016-09-23] MEDS: glipiZIDE 10 MG TAB PO SCH ×2 (07:01→17:05)
[2016-09-23] MEDS: PANTOPRAZOLE 40 MG TABLET PO SCH ×2 (07:01→17:08)
[2016-09-23 07:08] LABS: Anisocytosis Slight; Aty Lym Flag Moderate; CH 23.7; CHCM 28.5; HCT 28.2 % (39.0-53.0); HDW 4.24; HGB 8.2 gm/dL (13.0-17.5); Hypochromasia Marked; MCH 24.1 pg (25.0-35.0); MCHC 28.9 g/dL (31.0-37.0); MCV 83.3 fL (80.0-100.0); Mean Platelet Volume 7.6; Poikilocytosis Moderate; RBC 3.38 m/uL (4.30-5.90); RDW 17.6 % (11.5-15.5); WBC 9.8 k/uL (3.8-10.6); WBC (Perox) 9.77
[2016-09-23 07:12] LABS: INR 1.4 (<1.1); Prothrombin Time 14.1 sec (9.0-12.0)
[2016-09-23 07:26] LABS: Calcium 8.3 mg/dL (8.4-10.2); Magnesium 2.3 mg/dL (1.6-2.3); Phosphorous 3.7 mg/dL (2.5-4.5); Potassium 4.2 mmol/L (3.5-5.1); Total Bilirubin 2.4 mg/dL (0.2-1.3); Total Protein 4.8 g/dL (6.3-8.2)
--- NOTE | 2016-09-23 07:46 | XR ---
EXAMINATION TYPE: XR chest 1V DATE OF EXAM: 09/23/2016 7:12 AM HISTORY: SOB. REFERENCE: Previous study dated 09/22/2016. FINDINGS: The heart is enlarged. There is left basilar airspace disease. There are small, bilateral e ffusions. IMPRESSION: NO SIGNIFICANT CHANGE IN THE APPEARANCE OF THE LUNGS.
[2016-09-23] MEDS: SYMBICORT 160-4.5 MCG INHALER INHALATION SCH ×2 (07:57→20:10)
[2016-09-23 08:11] LABS: Add Differential Manual Differential
[2016-09-23 08:17] LABS: Manual Review Performed; Nucleated Red Blood Cells 0 /100 WBC (0-0); Total Cells Counted 100
[2016-09-23] MEDS: PIPERACILLIN-TAZOBACTAM 3.375 GM in DEXTROSE/WATER 1 50ML.BAG IVPB SCH ×3 (08:41→23:23)
[2016-09-23] MEDS: ASPIRIN 81 MG CHEW PO SCH (08:50)
[2016-09-23] MEDS: PREGABALIN 50 MG CAP PO SCH (08:50)
[2016-09-23] MEDS: MAGNESIUM OXIDE 400 MG TAB PO SCH ×4 (08:51→21:37)
[2016-09-23] MEDS: LINAGLIPTIN 5 MG TABLET PO SCH (08:51)
[2016-09-23] MEDS: SPIRONOLACTONE 25 MG TAB PO SCH (08:52)
[2016-09-23] MEDS ORDERED: FUROSEMIDE 10 MG/ML 4 ML VIAL IV SCH (09:00)
--- NOTE | 2016-09-23 10:10 | P.PN ---
Subjective Principal diagnosis: Acute non-ST segment elevation myocardial infarction This is a 70-year-old white male with history of coronary artery disease and severe ischemic cardiomyopathy, chronic congestive heart failure, diabetes, hypertension, hepatocellular carcinoma involving the liver, history of portal hypertension and esophageal varices requiring banding, patient usually follows at the [facility] for his cardiac issues. 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 area. Patient was admitted this time with mostly multiple complaints including generalized weakness, fatigue, some shortness of breath. His troponins were noted to be elevated, and he was noted to have a non-ST segment elevation myocardial infarction. He was seen by cardiology, but he was not felt to be a candidate for much intervention. Patient was admitted, but because of low blood pressure while he was on the cardiac floor, patient was transferred to the ICU, and I was asked to see him on consultation. Patient was initially placed on Dobutrex, did not seem to help his blood pressure much, hence I discontinued Dobutrex and place him on norepinephrine and he is presently on 8 g of norepinephrine. Blood pressure seems to be better, urine output is improved with improvement of the blood pressure, and his chest x-ray showed mild congestive changes hence I gave the patient a dose of Lasix earlier today. Patient is not in any form of distress, but requiring levo fed to maintain adequate blood pressure. Patient denies any fever chills, no headaches no blurred vision no dizziness, no chest pain. He feels generally weak. Patient was reevaluated today on 09/20/2016, remains in the intensive care unit, remains on norepinephrine at 8 g, patient is making good urine output about 50- 100 mL/h without diuretics. Remains in the ICU mostly because of the blood pressure remains marginal and he remains on norepinephrine. Overall the patient is feeling better, breathing easier, continues to have a chest x-ray suggestive of mild congestive heart failure, continues to have crackles on physical examination bilaterally. Patient was supposed to be transferred to the [facility], but apparently no beds are available. CBC was reviewed INR is 1.6 electrolytes are normal BUN is 30 creatinine is 1.30 patient was reevaluated today on 09/21/2016, remains in the intensive care unit, remains on norepinephrine at 6 g, blood pressure remains marginal. Urine output responded earlier today to a dose of Lasix at 60 mg IV push given because his chest x-ray showed evidence of worsening pulmonary edema.hemoglobin is 8.8 today. Electrolytes were reviewed sodium is 130 BUN is 32 creatinine is 1.20 liver enzymes remain elevated Patient was reevaluated today on 09/22/2016, remains in the intensive care unit, his norepinephrine was discontinued a few hours ago, and his blood pressure seems to be relatively stable. Patient did not receive any Lasix this morning, urine output is about 30 mL per hour. His chest x-ray is showing improvement no evidence of pulmonary edema compared to the chest x-ray yesterday. Apparently he responded well to the Lasix that was given yesterday. Hence I will maintain the patient on a daily dose of Lasix of 40 mg IV push daily.CBC is relatively normal however his hemoglobin is 8.6. INR is 1.4 sodium is 128 BUN is 35 creatinine is 1.20. Today the patient will not receive Lasix. But he was started on a maintenance dose as of tomorrow morning. Clinically he is about the same. Feels generally weak, but no shortness of breath no chest pain no cough no wheezing. No nausea no vomiting no abdominal pain. Reevaluated today on 09/23/2016, patient is now on the cardiac floor/telemetry, off norepinephrine, doing relatively well, blood pressure is marginal chest x- ray is beginning to show some mild congestive changes, but he is to receive his Lasix this morning. Patient has mostly symptoms of weakness, occasional cough, no wheezing, no chest pain, no fever, no chills, no hemoptysis. CBC showed a hemoglobin of 8.2 INR is 1.4 sodium remains a bit low at 128 BUN is 42 creatinine is 1.41. Objective - Vital Signs Vital signs: Vital Signs Temp 97 F L 09/23/16 03:58 Pulse 84 09/23/16 08:09 Resp 20 09/23/16 08:00 BP 90/50 09/23/16 08:00 Pulse Ox 97 09/23/16 08:00 Intake & Output 09/22/16 09/23/16 09/23/16 18:59 06:59 18:59 Intake Total 451.81 200 Output Total 330 350 Balance 121.81 -350 200 Weight 106.5 kg Intake: IV 230 0.9 180 Piperacillin-Tazobactam 3 50 .375 gm In Dextrose/Water 1 50ml.bag @ 12.5 mls/hr IVPB Q8HR MAC Rx#: [id number] Intake, IV Titration 103.81 Amount Magnesium Sulfate-D5w Pmx 100 1 gm In Dextrose/Water 1 100ml.bag @ 100 mls/hr IVPB Q1H MAC Rx#: [id number] Norepinephrine 4 mg In 3.81 Sodium Chloride 0.9% 250 ml @ Titrate IV .Q0M MAC Rx#:[id number] Oral 118 200 Output: Urine 330 350 Other: Voiding Method Indwelling Catheter Indwelling Catheter ABP, PAP, CO, CI - Last Documented Arterial Blood Pressure 106/58 - Exam Physical Exam: Revealed a 70-year-old white male in no distress HEENT:[Neck is supple.] [No neck masses.] [No thyromegaly.] [No JVD.] Chest: [Minimal fine crackles at the bases, no rhonchi, no wheezes] Cardiac Exam: [Normal S1 and S2, no S3 gallop, no murmur.] Abdomen: [Soft, nontender, no megaly, no rebound, no guarding, normal bowel sounds.] Extremities: [No clubbing, 2+ bipedal edema, no cyanosis.] Neurological Exam: [No focal neurologic deficit.] - Labs CBC & Chem 7: 09/23/16 06:20 09/23/16 06:20 Labs: Abnormal Lab Results - Last 24 Hours (Table) 09/22/16 09/22/16 09/22/16 Range/Units 11:57 17:17 20:33 RBC (4.30-5.90) m/uL Hgb (13.0-17.5) gm/dL Hct (39.0-53.0) % MCH (25.0-35.0) pg MCHC (31.0-37.0) g/dL RDW (11.5-15.5) % Plt Count (150-450) k/uL Monocytes # (Manual) (0-1.0) k/uL PT (9.0-12.0) sec Sodium (137-145) mmol/L Chloride (98-107) mmol/L BUN (9-20) mg/dL Creatinine (0.66-1.25) mg/dL Glucose (74-99) mg/dL POC Glucose (mg/dL) 248 H 240 H 263 H (75-99) mg/dL Calcium (8.4-10.2) mg/dL Total Bilirubin (0.2-1.3) mg/dL AST (17-59) U/L ALT (21-72) U/L Alkaline Phosphatase (38-126) U/L Total Protein (6.3-8.2) g/dL Albumin (3.5-5.0) g/dL 09/23/16 09/23/16 09/23/16 Range/Units 02:08 06:20 06:20 RBC 3.38 L (4.30-5.90) m/uL Hgb 8.2 L (13.0-17.5) gm/dL Hct 28.2 L (39.0-53.0) % MCH 24.1 L (25.0-35.0) pg MCHC 28.9 L (31.0-37.0) g/dL RDW 17.6 H (11.5-15.5) % Plt Count 97 L (150-450) k/uL Monocytes # (Manual) 1.6 H (0-1.0) k/uL PT 14.1 H (9.0-12.0) sec Sodium (137-145) mmol/L Chloride (98-107) mmol/L BUN (9-20) mg/dL Creatinine (0.66-1.25) mg/dL Glucose (74-99) mg/dL POC Glucose (mg/dL) 166 H (75-99) mg/dL Calcium (8.4-10.2) mg/dL Total Bilirubin (0.2-1.3) mg/dL AST (17-59) U/L ALT (21-72) U/L Alkaline Phosphatase (38-126) U/L Total Protein (6.3-8.2) g/dL Albumin (3.5-5.0) g/dL 09/23/16 09/23/16 Range/Units 06:20 06:30 RBC (4.30-5.90) m/uL Hgb (13.0-17.5) gm/dL Hct (39.0-53.0) % MCH (25.0-35.0) pg MCHC (31.0-37.0) g/dL RDW (11.5-15.5) % Plt Count (150-450) k/uL Monocytes # (Manual) (0-1.0) k/uL PT (9.0-12.0) sec Sodium 128 L (137-145) mmol/L Chloride 95 L (98-107) mmol/L BUN 42 H (9-20) mg/dL Creatinine 1.41 H (0.66-1.25) mg/dL Glucose 103 H (74-99) mg/dL POC Glucose (mg/dL) 121 H (75-99) mg/dL Calcium 8.3 L (8.4-10.2) mg/dL Total Bilirubin 2.4 H (0.2-1.3) mg/dL AST 192 H (17-59) U/L ALT 136 H (21-72) U/L Alkaline Phosphatase 173 H (38-126) U/L Total Protein 4.8 L (6.3-8.2) g/dL Albumin 2.1 L (3.5-5.0) g/dL Microbiology - Last 24 Hours (Table) 09/18/16 20:50 Blood Culture - Preliminary Blood No Growth after 96 hours Assessment and Plan Plan: Impression: 1 acute non-ST segment elevation myocardial infarction 2 severe ischemic cardiomyopathy and poor LV function 3 chronic congestive heart failure secondary to above 4 history of hepatocellular carcinoma 5 hypotension secondary to above, mostly secondary to his poor LV function and cardiomyopathy. 6 elevated liver enzymes secondary to her underlying hepatocellular disease/ hepatocellular carcinoma 7 type 2 diabetes poorly controlled 8 history of hypertension 9 history of hypothyroidism 10 history of chronic anemia and previous history of GI blood losses. Recommendation: Continue present supportive care measures, consider discharge planning in the next 2 days. Time with Patient: Less than 30
[2016-09-23] MEDS: METOPROLOL TARTRATE 12.5 MG TAB PO SCH ×2 (10:15→20:14)
[2016-09-23 12:05] LABS: Glucose,Whole Blood 192 mg/dL (75-99)
[2016-09-23] MEDS ORDERED: FUROSEMIDE 250 MG in SODIUM CHLORIDE 0.9% 225 ML IVP SCH (16:00)
[2016-09-23 16:35] LABS: Glucose,Whole Blood 152 mg/dL (75-99)
--- NOTE | 2016-09-23 16:36 | PN ---
This patient has a known history of coronary artery disease with ischemic cardiomyopathy and severely impaired left ventricular systolic function. The patient continues to feel short of breath with orthopnea and PND. Patient has 3 to 4+ pedal edema as well as scrotal edema. His abdomen is distended and possibly has ascites. First and second heart sounds are normal. Bilateral rales are noted. FINAL IMPRESSION: At present the patient continues to be hypervolemic with evidence of biventricular failure. We will discontinue IV Lasix and start him on Lasix drip at 10 mg/h.
--- NOTE | 2016-09-23 17:37 | US ---
EXAMINATION TYPE: US abdomen limited DATE OF EXAM: 09/23/2016 5:16 PM COMPARISON: NONE CLINICAL HISTORY: fluid on abdomen. Possible ascites Mild free fluid noted within all 4 abdominal quadrants IMPRESSION: There is demonstration of a moderate amount of ascites fluid in all 4 quadrants of the a bdomen.
[2016-09-23] MEDS: MELATONIN 3 MG TABLET PO SCH (20:14)
[2016-09-23 21:16] LABS: Glucose,Whole Blood 101 mg/dL (75-99)
[2016-09-23] MEDS: INSULIN GLARGINE 100 UNIT/ML 10 ML VIAL SQ SCH (21:37)
[2016-09-24 02:16] LABS: Glucose,Whole Blood 85 mg/dL (75-99)
[2016-09-24] MEDS: INSULIN LISPRO (humaLOG) 300 UNIT/3 ML VIAL SQ SCH ×8 (02:17→23:59)
[2016-09-24 05:58] LABS: Glucose,Whole Blood 77 mg/dL (75-99)
[2016-09-24 06:37] LABS: INR 1.4 (<1.1); Prothrombin Time 13.5 sec (9.0-12.0)
[2016-09-24] MEDS: LEVOTHYROXINE 125 MCG TAB PO SCH (06:51)
[2016-09-24 06:52] LABS: Magnesium 2.2 mg/dL (1.6-2.3); Phosphorous 4.5 mg/dL (2.5-4.5)
[2016-09-24] MEDS: glipiZIDE 10 MG TAB PO SCH ×2 (06:52→17:13)
[2016-09-24] MEDS: PANTOPRAZOLE 40 MG TABLET PO SCH ×2 (07:08→17:13)
[2016-09-24] MEDS: IPRATROPIUM-ALBUTEROL 3 ML NEB INHALATION PRN ×3 (08:57→16:10)
[2016-09-24] MEDS: SYMBICORT 160-4.5 MCG INHALER INHALATION SCH ×2 (08:57→20:01)
--- NOTE | 2016-09-24 09:42 | XR ---
EXAMINATION TYPE: XR chest 1V portable DATE OF EXAM: 09/24/2016 9:30 AM COMPARISON: Yesterday HISTORY: Short of breath TECHNIQUE: Single frontal view of the chest is obtained. FINDINGS: There is pulmonary vascular congestion. Heart is probably enlarged. There are chest leads. There is patchy infiltrate in the right lower lobe. IMPRESSION: Congestive heart failure. There is increasing right lower lobe pneumonic infiltrate comp ared to yesterday.
[2016-09-24] MEDS: MAGNESIUM OXIDE 400 MG TAB PO SCH ×4 (09:47→20:53)
[2016-09-24] MEDS: METOPROLOL TARTRATE 12.5 MG TAB PO SCH ×2 (09:47→20:53)
[2016-09-24] MEDS: SPIRONOLACTONE 25 MG TAB PO SCH (09:47)
[2016-09-24] MEDS: LINAGLIPTIN 5 MG TABLET PO SCH (09:48)
[2016-09-24] MEDS: PREGABALIN 50 MG CAP PO SCH (09:48)
[2016-09-24] MEDS: ASPIRIN 81 MG CHEW PO SCH (09:48)
[2016-09-24] MEDS: PIPERACILLIN-TAZOBACTAM 3.375 GM in DEXTROSE/WATER 1 50ML.BAG IVPB SCH ×2 (10:47→17:11)
--- NOTE | 2016-09-24 10:54 | P.PN ---
Subjective Principal diagnosis: Acute non-ST segment elevation myocardial infarction This is a 70-year-old white male with history of coronary artery disease and severe ischemic cardiomyopathy, chronic congestive heart failure, diabetes, hypertension, hepatocellular carcinoma involving the liver, history of portal hypertension and esophageal varices requiring banding, patient usually follows at the [facility] for his cardiac issues. 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 Patient was admitted this time with mostly multiple complaints including generalized weakness, fatigue, some shortness of breath. His troponins were noted to be elevated, and he was noted to have a non-ST segment elevation myocardial infarction. He was seen by cardiology, but he was not felt to be a candidate for much intervention. Patient was admitted, but because of low blood pressure while he was on the cardiac floor, patient was transferred to the ICU, and I was asked to see him on consultation. Patient was initially placed on Dobutrex, did not seem to help his blood pressure much, hence I discontinued Dobutrex and place him on norepinephrine and he is presently on 8 g of norepinephrine. Blood pressure seems to be better, urine output is improved with improvement of the blood pressure, and his chest x-ray showed mild congestive changes hence I gave the patient a dose of Lasix earlier today. Patient is not in any form of distress, but requiring levo fed to maintain adequate blood pressure. Patient denies any fever chills, no headaches no blurred vision no dizziness, no chest pain. He feels generally weak. Patient was reevaluated today on 09/20/2016, remains in the intensive care unit, remains on norepinephrine at 8 g, patient is making good urine output about 50- 100 mL/h without diuretics. Remains in the ICU mostly because of the blood pressure remains marginal and he remains on norepinephrine. Overall the patient is feeling better, breathing easier, continues to have a chest x-ray suggestive of mild congestive heart failure, continues to have crackles on physical examination bilaterally. Patient was supposed to be transferred to the [facility], but apparently no beds are available. CBC was reviewed INR is 1.6 electrolytes are normal BUN is 30 creatinine is 1.30 patient was reevaluated today on 09/21/2016, remains in the intensive care unit, remains on norepinephrine at 6 g, blood pressure remains marginal. Urine output responded earlier today to a dose of Lasix at 60 mg IV push given because his chest x-ray showed evidence of worsening pulmonary edema.hemoglobin is 8.8 today. Electrolytes were reviewed sodium is 130 BUN is 32 creatinine is 1.20 liver enzymes remain elevated Patient was reevaluated today on 09/22/2016, remains in the intensive care unit, his norepinephrine was discontinued a few hours ago, and his blood pressure seems to be relatively stable. Patient did not receive any Lasix this morning, urine output is about 30 mL per hour. His chest x-ray is showing improvement no evidence of pulmonary edema compared to the chest x-ray yesterday. Apparently he responded well to the Lasix that was given yesterday. Hence I will maintain the patient on a daily dose of Lasix of 40 mg IV push daily.CBC is relatively normal however his hemoglobin is 8.6. INR is 1.4 sodium is 128 BUN is 35 creatinine is 1.20. Today the patient will not receive Lasix. But he was started on a maintenance dose as of tomorrow morning. Clinically he is about the same. Feels generally weak, but no shortness of breath no chest pain no cough no wheezing. No nausea no vomiting no abdominal pain. Reevaluated today on 09/23/2016, patient is now on the cardiac floor/telemetry, off norepinephrine, doing relatively well, blood pressure is marginal chest x- ray is beginning to show some mild congestive changes, but he is to receive his Lasix this morning. Patient has mostly symptoms of weakness, occasional cough, no wheezing, no chest pain, no fever, no chills, no hemoptysis. CBC showed a hemoglobin of 8.2 INR is 1.4 sodium remains a bit low at 128 BUN is 42 creatinine is 1.41. Patient was reevaluated today on 09/24/2016, presently on Lasix drip, continues to have shortness of breath with any activity, intermittent episodes of cough, wheezing intermittently. Labs were reviewed, INR is 1.4, subtherapeutic. No other labs were done today. Chest x-ray showed congestive heart failure, atelectasis in the right lower lobe, doubt pneumonic infiltrate. Ultrasound of the abdomen showed moderate amount of ascites fluid patient may have to be considered for possible paracentesis. This is again secondary to his end-stage liver disease and hepatocellular carcinoma. Objective - Vital Signs Vital signs: Vital Signs Temp 97 F L 09/24/16 03:37 Pulse 92 09/24/16 09:13 Resp 20 09/24/16 08:00 BP 112/64 09/24/16 08:00 Pulse Ox 92 L 09/24/16 08:00 Intake & Output 09/23/16 09/24/16 09/24/16 18:59 06:59 18:59 Intake Total 200 120 Output Total 400 775 Balance -200 -775 120 Weight 107.5 kg Intake: Oral 200 120 Output: Urine 400 775 Other: Voiding Method Indwelling Catheter Indwelling Catheter ABP, PAP, CO, CI - Last Documented Arterial Blood Pressure 106/58 - Exam Physical Exam: Revealed a 70-year-old white male in no distress HEENT:[Neck is supple.] [No neck masses.] [No thyromegaly.] [No JVD.] Chest: [Minimal fine crackles at the bases, some wheezing noted bilaterally. Cardiac Exam: [Normal S1 and S2, no S3 gallop, no murmur.] Abdomen: [Soft, nontender, no megaly, positive ascites is suspected no rebound , no guarding, normal bowel sounds.] Extremities: [No clubbing, 2+ bipedal edema, no cyanosis.] Neurological Exam: [No focal neurologic deficit.] - Labs CBC & Chem 7: 09/23/16 06:20 09/23/16 06:20 Labs: Abnormal Lab Results - Last 24 Hours (Table) 09/23/16 09/23/16 09/23/16 Range/Units 12:04 16:33 21:14 PT (9.0-12.0) sec POC Glucose (mg/dL) 192 H 152 H 101 H (75-99) mg/dL 09/24/16 Range/Units 06:05 PT 13.5 H (9.0-12.0) sec POC Glucose (mg/dL) (75-99) mg/dL Microbiology - Last 24 Hours (Table) 09/18/16 20:50 Blood Culture - Preliminary Blood No Growth after 120 hours Assessment and Plan Plan: Impression: 1 acute non-ST segment elevation myocardial infarction 2 severe ischemic cardiomyopathy and poor LV function 3 chronic congestive heart failure secondary to above 4 history of hepatocellular carcinoma 5 hypotension secondary to above, mostly secondary to his poor LV function and cardiomyopathy. 6 elevated liver enzymes secondary to her underlying hepatocellular disease/ hepatocellular carcinoma, and now with worsening ascites which may need to be addressed by interventional radiology 7 type 2 diabetes poorly controlled 8 history of hypertension 9 history of hypothyroidism 10 history of chronic anemia and previous history of GI blood losses. Recommendation: Continue present supportive care measures, continue Lasix drip, consider interventional radiology evaluation for possible paracentesis. Overall prognosis is definitely poor considering his underlying liver issue and cardiac issues. Time with Patient: Less than 30
--- NOTE | 2016-09-24 11:12 | PN ---
DATE OF SERVICE: 09/23/2016 This 70-year-old gentleman who was admitted with hypotension and acute non-ST elevation myocardial infarction had multiple other medical problems, had abdominal distention also. The patient had significant scrotal edema also. The patient is being closely monitored. The patient off Levophed drip at this time. The patient had previous ascites as well. Past medical history reviewed. REVIEW OF SYSTEMS: CARDIOVASCULAR: No angina or palpitations. RESPIRATORY: As mentioned earlier. GI: As mentioned earlier. : No dysuria. Nervous system: No numbness or weakness. Current medications are reviewed and include: 1. Tylenol 650 q.4 p.r.n. 2. DuoNeb q.i.d. and p.r.n. 3. Aspirin 81 mg daily. 4. Symbicort 160/4.5 2 puffs b.i.d. 5. Flonase 2 sprays daily. 6. Lasix drip. 7. Glucotrol 10 mg p.o. b.i.d. 8. Lantus 35 subcu q.h.s. 9. Humalog scale. 10. Humalog 7 units a.c. t.i.d. 11. Synthroid 125 mcg p.o. daily. 12. Tradjenta 5 mg p.o. daily. 13. Magnesium oxide 400 mg p.o. q.i.d. 14. Melatonin 3 mg q.h.s. 15. Lopressor 12.5 mg b.i.d. 16. Magnesium. 17. Potassium. 18. Nitrostat. 19. Protonix 40 mg a.c. b.i.d. 20. Zosyn 3.375 q.8. 21. Lyrica 50 mg p.o. daily. 22. Aldactone 50 mg p.o. daily. PHYSICAL EXAMINATION: The patient is alert and oriented times three. Pulse 92, blood pressure 109/80, respiratory rate 20, temperature 98.2, pulse ox 92% on 2 L. HEENT: Conjunctivae normal. Oral mucosa moist. NECK: no jugular venous distention. No carotid bruit. No lymph node enlargement. CARDIOVASCULAR: S1, S2 muffled. No S3, no S4. RESPIRATORY: Breath sounds diminished at the bases. Bilateral scattered rhonchi and crackles. ABDOMEN: Soft. Ascites present. Diffuse distention. Significant scrotal and penile edema also present. Walsh catheter in situ. LEGS: minimal edema. CENTRAL NERVOUS SYSTEM: Diffusely weak. LABS: WBC 9.3, hemoglobin is 8.2. INR is 1.4. Total bilirubin is 2.4. AST is 192 and ALT is 136. ASSESSMENT: 1. Acute non-ST segment elevation myocardial infarction with troponin elevated up to 2.250 on presentation. 2. Cardiogenic shock secondary to acute myocardial infarction hypotension status post Levophed support. 3. Severe cardiomyopathy, ejection fraction less than 20% with ischemic cardiomyopathy, possibly with chronic congestive heart failure with chronic systolic dysfunction. 4. Possible bibasilar pneumonia atelectasis, possibly gram-negative. 5. Ascites and abdominal distention. 6. Penile and scrotal edema. 7. Possible primary hepatocellular carcinoma recently. 8. Diabetes mellitus type 2. 9. Change in mental status and acute metabolic encephalopathy, acute, multifactorial. 10. Increased bilirubin, AST, ALT, possibly secondary to hepatic malignancy. 11. Increased creatinine kinase. 12. Diabetes mellitus type 2, uncontrolled insulin drip. 13. Hyponatremia. 14. Increased WBC, possibly secondary to sepsis. 15. Anemia, normocytic secondary to malignancy. 16. Thrombocytopenia possibly secondary to malignancy. 17. History of coronary artery disease. 18. History of chronic systolic dysfunction, ejection fraction 20%. 19. Diabetes mellitus type 2. 20. Hypertension, essential. 21. Hyperlipidemia. 22. History of hypothyroidism. 23. History of coronary artery disease and stent. 24. History of gait dysfunction. 25. Acute renal failure, possibly multifactorial prerenal. 26. FULL CODE. RECOMMENDATIONS AND DISCUSSION: Recommend to continue current medications, continue with monitoring, symptomatic treatment. Recommend ultrasound of the abdomen. Possible diagnostic and therapeutic. Otherwise, continue the rest of the medications including antibiotics. Otherwise, closely follow with multiple consultants. Prognosis extremely guarded. Further recommendations to follow. MTDD
[2016-09-24 12:00] LABS: Glucose,Whole Blood 169 mg/dL (75-99)
[2016-09-24] MEDS: ACETAMINOPHEN TAB 325 MG TAB PO PRN (15:18)
--- NOTE | 2016-09-24 15:32 | PN ---
This patient has ischemic cardiomyopathy with congestive cardiac failure. Patient continues to have some difficulty in breathing. Patient has not lost any significant amount of weight. Patient is currently on a Lasix drip at 10 mg/h. First and second heart sounds are normal. Lungs reveal bilateral basal rales. Patient continues to have a 2+ leg edema. We will give the patient Zaroxolyn 5 mg daily and start the patient on dobutamine drip.
[2016-09-24] MEDS ORDERED: BUMETANIDE 12 MG in DEXTROSE 5% IN WATER 192 ML IV SCH ×2 (16:00)
[2016-09-24] MEDS: DOBUTamine DRIP 500 MG in DEXTROSE/WATER 1 250ML.BAG IV SCH (16:48)
[2016-09-24 16:57] LABS: Glucose,Whole Blood 152 mg/dL (75-99)
[2016-09-24] MEDS: MELATONIN 3 MG TABLET PO SCH (20:53)
[2016-09-24] MEDS: METOLAZONE 5 MG TAB PO SCH (20:53)
[2016-09-24] MEDS: INSULIN GLARGINE 100 UNIT/ML 10 ML VIAL SQ SCH (20:59)
[2016-09-24 21:11] LABS: Glucose,Whole Blood 143 mg/dL (75-99)
[2016-09-25] MEDS: PIPERACILLIN-TAZOBACTAM 3.375 GM in DEXTROSE/WATER 1 50ML.BAG IVPB SCH ×4 (00:15→23:28)
[2016-09-25] MEDS: SPIRONOLACTONE 25 MG TAB PO SCH ×3 (00:16→21:24)
[2016-09-25] MEDS: ACETAMINOPHEN TAB 325 MG TAB PO PRN ×2 (01:34→21:25)
[2016-09-25 02:08] LABS: Glucose,Whole Blood 179 mg/dL (75-99)
[2016-09-25] MEDS: DOBUTamine DRIP 500 MG in DEXTROSE/WATER 1 250ML.BAG IV SCH (04:41)
[2016-09-25 06:09] LABS: Glucose,Whole Blood 128 mg/dL (75-99)
[2016-09-25] MEDS: INSULIN LISPRO (humaLOG) 300 UNIT/3 ML VIAL SQ SCH ×8 (06:09→21:23)
[2016-09-25] MEDS: LEVOTHYROXINE 125 MCG TAB PO SCH (06:41)
[2016-09-25] MEDS: PANTOPRAZOLE 40 MG TABLET PO SCH ×2 (06:41→17:30)
[2016-09-25 06:51] LABS: Anisocytosis Slight; Aty Lym Flag Slight; CHCM 29.4; HCT 26.2 % (39.0-53.0); HGB 7.7 gm/dL (13.0-17.5); Hypochromasia Marked; MCHC 29.4 g/dL (31.0-37.0); MCV 81.9 fL (80.0-100.0); Mean Platelet Volume 8.2; Microcytosis Slight; Poikilocytosis Moderate; WBC 8.7 k/uL (3.8-10.6); WBC (Perox) 9.26
[2016-09-25 06:53] LABS: Calcium 8.3 mg/dL (8.4-10.2); Potassium 4.5 mmol/L (3.5-5.1); Total Bilirubin 2.5 mg/dL (0.2-1.3); Total Protein 4.5 g/dL (6.3-8.2)
[2016-09-25 07:41] LABS: Add Differential Manual Differential
[2016-09-25 07:56] LABS: Nucleated Red Blood Cells 0 /100 WBC (0-0); Total Cells Counted 100
[2016-09-25 07:57] LABS: Manual Review Performed
[2016-09-25 07:58] LABS: Ovalocytes Present; Polychromasia Present
[2016-09-25] MEDS: METOPROLOL TARTRATE 12.5 MG TAB PO SCH ×2 (09:02→21:24)
[2016-09-25] MEDS: ASPIRIN 81 MG CHEW PO SCH (09:03)
[2016-09-25] MEDS: PREGABALIN 50 MG CAP PO SCH (09:03)
[2016-09-25] MEDS: METOLAZONE 5 MG TAB PO SCH (09:04)
[2016-09-25] MEDS: SYMBICORT 160-4.5 MCG INHALER INHALATION SCH ×2 (09:10→20:34)
[2016-09-25] MEDS: glipiZIDE 10 MG TAB PO SCH ×2 (09:13→17:20)
[2016-09-25] MEDS: LINAGLIPTIN 5 MG TABLET PO SCH (09:14)
--- NOTE | 2016-09-25 11:25 | PN ---
DATE OF SERVICE: 09/24/2016 This is a 70-year-old gentleman who was admitted with acute [id number]-BA-ruiyfrduv myocardial infarction, had a troponin elevated up to 2.250. The patient also had a cardiogenic shock and myocardial infarction. The patient was on Levophed support. The patient is still short of breath. The patient has significant ascites, and as well as scrotal edema also. The patient's. PHYSICAL EXAM: Patient is alert and oriented x3. Pulse 98, blood pressure 94/54, respirations 18, temperature is normal, pulse ox 92% on 2 L. HEENT: Conjunctivae normal. NECK: No jugular venous distention. CARDIOVASCULAR SYSTEM: S1, S2, muffled. RESPIRATORY: Breath sounds diminished at the bases, a few scattered rhonchi, no crackles. Abdomen is soft, obese. EXTREMITIES: Legs minimal edema and diffusely weak. Labs are WBC 9.8, hemoglobin is 8.2. INR is 1.4. Other labs are noted. Influenza not detected. ASSESSMENT: 1. Acute [id number] myocardial infarction with the troponin elevated up to 2.250 on presentation. 2. Cardiac shock secondary to acute myocardial infarction with hypotension and status post Levophed support and severe cardiomyopathy, ejection fraction less than 20% with ischemic cardiomyopathy, with congestive heart failure with chronic systolic dysfunction. 3. Possible bibasilar pneumonia, atelectasis, possibly gram-negative. 4. Ascites as well as abdominal distention. 5. Pain in the scrotal area, edema. 6. Possible primary hepatocellular carcinoma, diagnosed recently. 7. Diabetes mellitus type 2. 8. Change in mental status and acute metabolic encephalopathy, acute multifactorial. 9. Increased bilirubin, AST, ALT, possibly secondary to hepatic malignancy. 10. Increased creatinine kinase. 11. Diabetes mellitus type 2, uncontrolled on insulin drip. 12. Hyponatremia. 13. Increased WBC, possibly secondary to sepsis. 14. Anemia, normocytic secondary to malignancy. 15. Thrombocytopenia possibly secondary to malignancy. 16. History of coronary artery disease. 17. History of chronic systolic dysfunction, ejection fraction 20% secondary to congestive heart failure, chronic. 18. Hypertension, essential. 19. Hyperlipidemia. 20. History of hypothyroidism. 21. History of coronary artery disease, stent. 22. History of gait dysfunction. 23. Acute renal failure, possibly multifactorial, prerenal. 24. FULL CODE. RECOMMENDATION: In this 70-year-old gentleman who presented with multiple complex medical issues, will monitor the patient closely. Continue the current medications. Continue with the symptomatic treatment. Otherwise, diuretics was reported with Cardiology and Pulmonology. Guarded prognosis. Further recommendations to follow. MTDD
[2016-09-25] MEDS: MAGNESIUM OXIDE 400 MG TAB PO SCH ×4 (11:27→21:25)
[2016-09-25 11:50] LABS: Glucose,Whole Blood 136 mg/dL (75-99)
--- NOTE | 2016-09-25 11:53 | P.PN ---
Subjective Principal diagnosis: Shortness of breath This is a 70-year-old gentleman with known history of ischemic cardiomyopathy who is currently receiving treatment for congestive cardiac failure. He is currently on IV Bumex drip at 0.5 mg along with dobutamine drip. Continues to have 1+ edema with bi-basilar crackles. Scheduled today to undergo paracentesis. Hemoglobin today 7.7, sodium 126, creatinine 1.8. Overall the patient states that he does feel mildly better today. Patient has put out approximately 1350 mL of urine although the weight suggests a moderate increase. Objective - Vital Signs Vital signs: Vital Signs Temp 96.3 F L 09/25/16 08:00 Pulse 95 09/25/16 08:00 Resp 20 09/25/16 08:00 BP 92/51 09/25/16 08:00 Pulse Ox 94 L 09/25/16 08:00 Intake & Output 09/24/16 09/25/16 09/25/16 18:59 06:59 18:59 Intake Total 700 95.78 Output Total 1000 350 Balance -300 -254.22 Weight 115 kg Intake: IV 210 0.9 160 Piperacillin-Tazobactam 3 50 .375 gm In Dextrose/Water 1 50ml.bag @ 12.5 mls/hr IVPB Q8HR MAC Rx#: [id number] Intake, IV Titration 50 95.78 Amount DOBUTamine DRIP 500 mg In 95.78 Dextrose/Water 1 250ml. bag @ 5 MCG/KG/MIN 16.12 mls/hr IV .[id number] MAC Rx #:[id number] Piperacillin-Tazobactam 3 50 .375 gm In Dextrose/Water 1 50ml.bag @ 12.5 mls/hr IVPB Q8HR MAC Rx#: [id number] Oral 440 Output: Urine 1000 350 Other: Voiding Method Indwelling Catheter Indwelling Catheter Indwelling Catheter ABP, PAP, CO, CI - Last Documented Arterial Blood Pressure 106/58 - Exam PHYSICAL EXAMINATION: HEENT: Head is atraumatic, normocephalic. Pupils equal, round. Neck is supple. There is no elevated jugular venous pressure. HEART EXAMINATION: Heart S1 and S2 with systolic murmur is heard. CHEST EXAMINATION: Lungs reveal rales to bilateral bases. ABDOMEN: Soft, nontender. Evidence of ascites .Bowel sounds are heard. No organomegaly noted. EXTREMITIES: 2+ peripheral pulses with 1-2+ evidence of peripheral edema and no calf tenderness noted. NEUROLOGIC patient is awake, alert and oriented -3. . - Labs CBC & Chem 7: 09/25/16 06:21 09/25/16 06:15 Labs: Abnormal Lab Results - Last 24 Hours (Table) 09/24/16 09/24/16 09/24/16 Range/Units 11:54 16:38 21:09 RBC (4.30-5.90) m/uL Hgb (13.0-17.5) gm/dL Hct (39.0-53.0) % MCH (25.0-35.0) pg MCHC (31.0-37.0) g/dL RDW (11.5-15.5) % Plt Count (150-450) k/uL Lymphocytes # (Manual) (1.0-4.8) k/uL Sodium (137-145) mmol/L Chloride (98-107) mmol/L BUN (9-20) mg/dL Creatinine (0.66-1.25) mg/dL Glucose (74-99) mg/dL POC Glucose (mg/dL) 169 H 152 H 143 H (75-99) mg/dL Calcium (8.4-10.2) mg/dL Total Bilirubin (0.2-1.3) mg/dL AST (17-59) U/L ALT (21-72) U/L Alkaline Phosphatase (38-126) U/L Total Protein (6.3-8.2) g/dL Albumin (3.5-5.0) g/dL 09/25/16 09/25/16 09/25/16 Range/Units 02:05 06:07 06:15 RBC (4.30-5.90) m/uL Hgb (13.0-17.5) gm/dL Hct (39.0-53.0) % MCH (25.0-35.0) pg MCHC (31.0-37.0) g/dL RDW (11.5-15.5) % Plt Count (150-450) k/uL Lymphocytes # (Manual) (1.0-4.8) k/uL Sodium 126 L (137-145) mmol/L Chloride 94 L (98-107) mmol/L BUN 53 H (9-20) mg/dL Creatinine 1.80 H (0.66-1.25) mg/dL Glucose 113 H (74-99) mg/dL POC Glucose (mg/dL) 179 H 128 H (75-99) mg/dL Calcium 8.3 L (8.4-10.2) mg/dL Total Bilirubin 2.5 H (0.2-1.3) mg/dL AST 131 H (17-59) U/L ALT 116 H (21-72) U/L Alkaline Phosphatase 163 H (38-126) U/L Total Protein 4.5 L (6.3-8.2) g/dL Albumin 2.0 L (3.5-5.0) g/dL 09/25/16 Range/Units 06:21 RBC 3.20 L (4.30-5.90) m/uL Hgb 7.7 L (13.0-17.5) gm/dL Hct 26.2 L (39.0-53.0) % MCH 24.0 L (25.0-35.0) pg MCHC 29.4 L (31.0-37.0) g/dL RDW 18.0 H (11.5-15.5) % Plt Count 71 L (150-450) k/uL Lymphocytes # (Manual) 0.4 L (1.0-4.8) k/uL Sodium (137-145) mmol/L Chloride (98-107) mmol/L BUN (9-20) mg/dL Creatinine (0.66-1.25) mg/dL Glucose (74-99) mg/dL POC Glucose (mg/dL) (75-99) mg/dL Calcium (8.4-10.2) mg/dL Total Bilirubin (0.2-1.3) mg/dL AST (17-59) U/L ALT (21-72) U/L Alkaline Phosphatase (38-126) U/L Total Protein (6.3-8.2) g/dL Albumin (3.5-5.0) g/dL Microbiology - Last 24 Hours (Table) 09/18/16 20:50 Blood Culture - Final Blood No Growth after 144 hours Assessment and Plan (1) NSTEMI (non-ST elevated myocardial infarction) Status: Acute (2) Systolic CHF, acute on chronic Status: Acute (3) Ischemic cardiomyopathy Status: Acute (4) HTN (hypertension) Status: Acute (5) Diabetes Status: Acute (6) Hypothyroid Status: Acute (7) Anemia Status: Acute Plan: From cardiology's perspective, we'll increase the Bumex drip to 1 mg/h continue other medications, continue to monitor intake and output along with daily weights closely. DNP note has been reviewed, I agree with a documented findings and plan of care. Patient was seen and examined.
--- NOTE | 2016-09-25 12:12 | P.PN ---
Subjective Progress note dated 09/25/2016 This is a 70-year-old male with a history of multiple medical problems including heart failure liver cancer and ascites. He also has jaundice. The patient may benefit from paracentesis abdominis. He has end-stage liver disease and hepatocellular carcinoma as mentioned above. Denies any breathing problems today. Laying nearly flat. On nasal O2. No respiratory distress or difficulty. Objective - Vital Signs Vital signs: Vital Signs Temp 96.6 F L 09/25/16 12:00 Pulse 91 09/25/16 12:00 Resp 20 09/25/16 12:00 BP 88/52 09/25/16 12:00 Pulse Ox 94 L 09/25/16 12:00 Intake & Output 09/24/16 09/25/16 09/25/16 18:59 06:59 18:59 Intake Total 700 95.78 Output Total 1000 350 Balance -300 -254.22 Weight 115 kg Intake: IV 210 0.9 160 Piperacillin-Tazobactam 3 50 .375 gm In Dextrose/Water 1 50ml.bag @ 12.5 mls/hr IVPB Q8HR MAC Rx#: [id number] Intake, IV Titration 50 95.78 Amount DOBUTamine DRIP 500 mg In 95.78 Dextrose/Water 1 250ml. bag @ 5 MCG/KG/MIN 16.12 mls/hr IV .[id number] MAC Rx #:[id number] Piperacillin-Tazobactam 3 50 .375 gm In Dextrose/Water 1 50ml.bag @ 12.5 mls/hr IVPB Q8HR MAC Rx#: [id number] Oral 440 Output: Urine 1000 350 Other: Voiding Method Indwelling Catheter Indwelling Catheter Indwelling Catheter ABP, PAP, CO, CI - Last Documented Arterial Blood Pressure 106/58 - Exam No acute distress, oriented 3. A bit sleepy. HEENT examination is grossly unremarkable. Mucous membranes are moist. No oral lesions. Neck supple. Full range of motion. Cardiovascular examination reveals regular rhythm rate. S1-S2 normal. No murmur. Lungs remain reveal a few scattered crackles. Breath sounds are diminished. Mild wheezing noted. Abdomen is obese. L sounds are not noted. The patient does have ascites. Extremities are intact. Slight edema. - Labs CBC & Chem 7: 09/25/16 06:21 03/27/17 06:15 Labs: Abnormal Lab Results - Last 24 Hours (Table) 09/24/16 09/24/16 09/25/16 Range/Units 16:38 21:09 02:05 RBC (4.30-5.90) m/uL Hgb (13.0-17.5) gm/dL Hct (39.0-53.0) % MCH (25.0-35.0) pg MCHC (31.0-37.0) g/dL RDW (11.5-15.5) % Plt Count (150-450) k/uL Lymphocytes # (Manual) (1.0-4.8) k/uL Sodium (137-145) mmol/L Chloride (98-107) mmol/L BUN (9-20) mg/dL Creatinine (0.66-1.25) mg/dL Glucose (74-99) mg/dL POC Glucose (mg/dL) 152 H 143 H 179 H (75-99) mg/dL Calcium (8.4-10.2) mg/dL Total Bilirubin (0.2-1.3) mg/dL AST (17-59) U/L ALT (21-72) U/L Alkaline Phosphatase (38-126) U/L Total Protein (6.3-8.2) g/dL Albumin (3.5-5.0) g/dL 09/25/16 09/25/16 09/25/16 Range/Units 06:07 06:15 06:21 RBC 3.20 L (4.30-5.90) m/uL Hgb 7.7 L (13.0-17.5) gm/dL Hct 26.2 L (39.0-53.0) % MCH 24.0 L (25.0-35.0) pg MCHC 29.4 L (31.0-37.0) g/dL RDW 18.0 H (11.5-15.5) % Plt Count 71 L (150-450) k/uL Lymphocytes # (Manual) 0.4 L (1.0-4.8) k/uL Sodium 126 L (137-145) mmol/L Chloride 94 L (98-107) mmol/L BUN 53 H (9-20) mg/dL Creatinine 1.80 H (0.66-1.25) mg/dL Glucose 113 H (74-99) mg/dL POC Glucose (mg/dL) 128 H (75-99) mg/dL Calcium 8.3 L (8.4-10.2) mg/dL Total Bilirubin 2.5 H (0.2-1.3) mg/dL AST 131 H (17-59) U/L ALT 116 H (21-72) U/L Alkaline Phosphatase 163 H (38-126) U/L Total Protein 4.5 L (6.3-8.2) g/dL Albumin 2.0 L (3.5-5.0) g/dL 09/25/16 Range/Units 11:49 RBC (4.30-5.90) m/uL Hgb (13.0-17.5) gm/dL Hct (39.0-53.0) % MCH (25.0-35.0) pg MCHC (31.0-37.0) g/dL RDW (11.5-15.5) % Plt Count (150-450) k/uL Lymphocytes # (Manual) (1.0-4.8) k/uL Sodium (137-145) mmol/L Chloride (98-107) mmol/L BUN (9-20) mg/dL Creatinine (0.66-1.25) mg/dL Glucose (74-99) mg/dL POC Glucose (mg/dL) 136 H (75-99) mg/dL Calcium (8.4-10.2) mg/dL Total Bilirubin (0.2-1.3) mg/dL AST (17-59) U/L ALT (21-72) U/L Alkaline Phosphatase (38-126) U/L Total Protein (6.3-8.2) g/dL Albumin (3.5-5.0) g/dL Microbiology - Last 24 Hours (Table) 09/18/16 20:50 Blood Culture - Final Blood No Growth after 144 hours Assessment and Plan (1) Anemia Status: Acute (2) Coagulopathy Status: Acute (3) Diabetes Status: Acute (4) General weakness Status: Acute (5) HTN (hypertension) Status: Acute (6) Hypothyroid Status: Acute (7) Ischemic cardiomyopathy Status: Acute (8) Systolic CHF, acute on chronic Status: Acute (9) CAD (coronary artery disease) Status: Acute (10) Gastrointestinal hemorrhage Status: Acute (11) Liver carcinoma Status: Acute (12) Rectal bleeding Status: Acute (13) Thrombocytopenia Status: Acute Plan: Plan dated 09/25/2016 The patient has a multitude of significant medical problems. He should have a palliative care consultation at the very least. The patient's CODE STATUS needs to be addressed promptly by the primary service. He has a history of a non-ST segment elevation myocardial infarction ischemic cardiomyopathy CHF hepatocellular carcinoma hypotension diabetes hypothyroidism and hepatocellular carcinoma. He also has significant hypoalbuminemia. Anyway, etc. should be addressed. His prognosis is very poor. I'll make mention of this to the nurse. Time with Patient: Less than 30
[2016-09-25] MEDS: BUMETANIDE 12 MG in DEXTROSE 5% IN WATER 192 ML IV SCH ×4 (12:35→23:51)
[2016-09-25 16:41] LABS: Glucose,Whole Blood 120 mg/dL (75-99)
[2016-09-25] MEDS: IPRATROPIUM-ALBUTEROL 3 ML NEB INHALATION PRN (20:34)
[2016-09-25 20:55] LABS: Glucose,Whole Blood 122 mg/dL (75-99)
[2016-09-25] MEDS: INSULIN GLARGINE 100 UNIT/ML 10 ML VIAL SQ SCH (21:20)
[2016-09-25] MEDS: MELATONIN 3 MG TABLET PO SCH (21:24)
--- NOTE | 2016-09-25 22:31 | PN ---
DATE OF SERVICE: 09/25/2016 This 70-year-old gentleman was admitted with vpu-KG-riebhjq-elevation myocardial infarction and multiple complications, including cardiogenic shock and bibasilar pneumonia and multiple other medical problems, including possibly hepatocellular carcinoma. The patient also is complaining of abdominal distention and scrotal edema ascites also noted. Patient is on diuretics. Past medical history reviewed. PHYSICAL EXAMINATION: Patient is alert and oriented x2. Dysarthria. Pulse 94, blood pressure 87/55, respiration 20, pulse ox 94% on 2 L. HEENT: Conjunctivae normal. NECK: No jugular venous distention. CARDIOVASCULAR SYSTEM: S1, S2 muffled. RESPIRATORY SYSTEM: Breath sounds diminished at the bases. A few scattered rhonchi. ABDOMEN: Soft, obese. LEGS: Bilateral leg edema. NERVOUS SYSTEM: No focal deficit. Diffusely weak. LABS: WBC 8.6, hemoglobin 7.6. Sodium 126. Creatinine is 1.8. Total bilirubin is 2.5. AST is 131. ALT is 116. Influenza is negative. REVIEW OF SYSTEMS: CARDIOVASCULAR: No angina, palpitations. RESPIRATORY SYSTEM: As mentioned earlier. GI: As mentioned earlier. : No dysuria. NERVOUS SYSTEM: No numbness or weakness. Current medications are reviewed and include: 1. Tylenol 650 q.4 p.r.n. 2. DuoNeb q.i.d. and p.r.n. 3. Aspirin 81 mg daily. 4. Symbicort. 5. Bumex. 6. Dobutamine. 7. Glipizide. 8. Lantus. 9. Humalog. 10. Synthroid. 11. Tradjenta. 12. Magnesium. 13. Melatonin. 14. Zaroxolyn. 15. Lopressor. 16. Nitrostat. 17. Protonix. 18. Lyrica. 19. Aldactone. ASSESSMENT: 1. Acute vst-TO-tncpgkq-elevation myocardial infarction with troponin elevated up to 2.250 on presentation. 2. Cardiogenic shock secondary to acute myocardial infarction with hypotension, status post Levophed support and severe cardiomyopathy, ejection fraction less than 20%, with ischemic cardiomyopathy with congestive heart failure with chronic systolic dysfunction. 3. Possible bibasilar pneumonia, atelectasis, possibly Gram-negative. 4. Ascites as well as abdominal distention. 5. Scrotal and penile edema. 6. Possible primary hepatocellular carcinoma, diagnosed recently. 7. Diabetes mellitus, type 2. 8. Change in mental status and acute metabolic encephalopathy, acute, multifactorial. 9. Increased bilirubin, AST, ALT, possibly secondary to hepatic malignancy. 10. Increased creatine kinase. 11. Diabetes mellitus, type 2, uncontrolled, on insulin drip. 12. Hyponatremia. 13. Increased white count, possibly secondary to sepsis. 14. Anemia, normocytic, secondary to malignancy. 15. Thrombocytopenia possibly secondary to malignancy. 16. History of coronary artery disease. 17. History of chronic systolic dysfunction; ejection fraction 20%, with congestive heart failure with chronic systolic dysfunction. 18. Hypertension, essential. 19. Hyperlipidemia. 20. History of hypothyroidism. 21. History of coronary artery disease and stent. 22. History of gait dysfunction. 23. History of acute renal failure, possibly multifactorial, prerenal. 24. FULL CODE. RECOMMENDATIONS AND DISCUSSION: I recommend to continue with the current medications, continue with the monitoring, symptomatic treatment. Otherwise, at this time I would recommend continuing the diuretics, continue with empiric antibiotics. Abdominal tap and diagnostic and therapeutic aspiration. Otherwise, guarded prognosis because of multiple complex medical issues. See orders for further details. Further recommendations to follow. Also discussed the CODE STATUS with the patient. At this time the patient would like to go with FULL CODE. Also discussed the guarded nature of his illness. We will talk with the patient's family as well. IONA
[2016-09-26] MEDS: DOBUTamine DRIP 500 MG in DEXTROSE/WATER 1 250ML.BAG IV SCH ×2 (01:15→15:12)
[2016-09-26 02:20] LABS: Glucose,Whole Blood 126 mg/dL (75-99)
[2016-09-26] MEDS: INSULIN LISPRO (humaLOG) 300 UNIT/3 ML VIAL SQ SCH ×8 (03:55→21:17)
[2016-09-26 06:16] LABS: Glucose,Whole Blood 131 mg/dL (75-99)
[2016-09-26 06:40] LABS: Anisocytosis Slight; Aty Lym Flag Slight; CH 23.7; CHCM 28.1; HCT 28.4 % (39.0-53.0); HDW 3.89; HGB 8.2 gm/dL (13.0-17.5); Hypochromasia Marked; MCH 24.3 pg (25.0-35.0); MCHC 28.8 g/dL (31.0-37.0); MCV 84.5 fL (80.0-100.0); Mean Platelet Volume 9.8; Poikilocytosis Slight; RBC 3.36 m/uL (4.30-5.90); RDW 17.8 % (11.5-15.5); WBC 10.7 k/uL (3.8-10.6); WBC (Perox) 12.98
[2016-09-26 06:56] LABS: INR 1.5 (<1.1); Prothrombin Time 14.4 sec (9.0-12.0)
[2016-09-26] MEDS: PANTOPRAZOLE 40 MG TABLET PO SCH ×2 (07:06→17:05)
[2016-09-26] MEDS: LEVOTHYROXINE 125 MCG TAB PO SCH (07:06)
[2016-09-26] MEDS: glipiZIDE 10 MG TAB PO SCH (07:06)
[2016-09-26 07:09] LABS: Calcium 8.3 mg/dL (8.4-10.2); Potassium 4.4 mmol/L (3.5-5.1); Total Bilirubin 2.5 mg/dL (0.2-1.3); Total Protein 4.9 g/dL (6.3-8.2)
[2016-09-26] MEDS: SPIRONOLACTONE 25 MG TAB PO SCH ×2 (08:27→21:19)
[2016-09-26] MEDS: PREGABALIN 50 MG CAP PO SCH (08:27)
[2016-09-26] MEDS: MAGNESIUM OXIDE 400 MG TAB PO SCH ×4 (08:27→21:19)
[2016-09-26] MEDS: METOPROLOL TARTRATE 12.5 MG TAB PO SCH ×2 (08:28→21:19)
[2016-09-26] MEDS: PIPERACILLIN-TAZOBACTAM 3.375 GM in DEXTROSE/WATER 1 50ML.BAG IVPB SCH (08:28)
[2016-09-26] MEDS: LINAGLIPTIN 5 MG TABLET PO SCH (08:28)
[2016-09-26] MEDS: METOLAZONE 5 MG TAB PO SCH (08:28)
[2016-09-26 08:49] LABS: Add Differential Manual Differential
[2016-09-26 08:52] LABS: Nucleated Red Blood Cells 0 /100 WBC (0-0); Total Cells Counted 100
[2016-09-26 08:54] LABS: Polychromasia Present
[2016-09-26] MEDS: SYMBICORT 160-4.5 MCG INHALER INHALATION SCH ×2 (09:06→19:39)
[2016-09-26 09:46] VITALS: BMI 42.2
[2016-09-26 11:28] LABS: Glucose,Whole Blood 199 mg/dL (75-99)
[2016-09-26] MEDS: IPRATROPIUM-ALBUTEROL 3 ML NEB INHALATION PRN ×2 (11:47→19:39)
[2016-09-26] MEDS: BUMETANIDE 12 MG in DEXTROSE 5% IN WATER 192 ML IV SCH ×2 (12:10)
--- NOTE | 2016-09-26 14:16 | US ---
EXAMINATION TYPE: US paracentesis abd w/image DATE OF EXAM: 09/26/2016 2:07 PM COMPARISON: NONE HISTORY: Ascites. PROCEDURE: Maximal barrier technique was utilized. The skin overlying a suitable pocket of fluid was localized with ultrasound and the overlying skin was prepped and draped. Ultrasound was utilized with sterile technique. Lidocaine was used for local anesthesia and a skin julianna made with a scalpel. Catheter was advanced under direct ultrasound guidance into a suitable pocket of fluid and approximately 6.3 liter s of serous fluid were removed. Catheter was withdrawn and hemostasis achieved. There is no immedia te complication; the patient is discharged in stable condition. IMPRESSION: STATUS POST ULTRASOUND GUIDED PARACENTESIS FOR PALLIATION OF ASCITES. THIS PROCEDURE WA S PERFORMED BY THE UNDERSIGNED.
--- NOTE | 2016-09-26 14:17 | P.PN ---
Subjective Progress note dated 09/25/2016 This is a 70-year-old male with a history of multiple medical problems including heart failure liver cancer and ascites. He also has jaundice. The patient may benefit from paracentesis abdominis. He has end-stage liver disease and hepatocellular carcinoma as mentioned above. Denies any breathing problems today. Laying nearly flat. On nasal O2. No respiratory distress or difficulty. Progress note dated 09/26/2016 70-year-old male with history of multiple medical problems including CHF hepatocellular carcinoma and ascites. He had a paracentesis abdominis today. He also has jaundice. The patient's end-stage liver disease is secondary to cancer. Yesterday we saw him he was apparently not having any breathing issues. I suspect the paracentesis abdominis will help him down the road. I did ask the nurse to call the primary physician to address CODE STATUS as I think the patient's at high risk for rapid deterioration. Given his health history, I don't believe the mechanical ventilator would be good option for this patient. Objective - Vital Signs Vital signs: Vital Signs Temp 96.7 F L 09/26/16 14:09 Pulse 92 09/26/16 14:09 Resp 18 09/26/16 14:09 BP 92/55 09/26/16 14:09 Pulse Ox 93 L 09/26/16 14:09 Intake & Output 09/25/16 09/26/16 09/26/16 18:59 06:59 18:59 Intake Total 472 170.717 1709 Output Total 300 250 350 Balance 172 225.333 660 Weight 115 kg Intake: IV 150 410 0.9 160 Bumetanide 12 mg In 200 Dextrose 5% in Water 192 ml @ 1 MG/HR 20 mls/hr IV .Q12H MAC Rx#:[id number] Piperacillin-Tazobactam 3 150 50 .375 gm In Dextrose/Water 1 50ml.bag @ 12.5 mls/hr IVPB Q8HR MAC Rx#: [id number] Intake, IV Titration 100 475.333 240 Amount Bumetanide 12 mg In 60 Dextrose 5% in Water 192 ml @ 0.5 MG/HR 10 mls/hr IV .Q24H MAC Rx#: [id number] Bumetanide 12 mg In 40 225.333 240 Dextrose 5% in Water 192 ml @ 1 MG/HR 20 mls/hr IV .Q12H MAC Rx#:[id number] DOBUTamine DRIP 500 mg In 250 Dextrose/Water 1 250ml. bag @ 5 MCG/KG/MIN 16.12 mls/hr IV .[id number] MAC Rx #:[id number] Oral 222 360 Output: Urine 300 250 350 Other: Voiding Method Indwelling Catheter Indwelling Catheter Indwelling Catheter # Voids 1 ABP, PAP, CO, CI - Last Documented Arterial Blood Pressure 106/58 - Exam No acute distress, oriented 3. A bit sleepy. HEENT examination is grossly unremarkable. Mucous membranes are moist. No oral lesions. Neck supple. Full range of motion. Cardiovascular examination reveals regular rhythm rate. S1-S2 normal. No murmur. Lungs remain reveal a few scattered crackles. Breath sounds are diminished. Mild wheezing noted. Abdomen is obese. L sounds are not noted. The patient does have ascites. Extremities are intact. Slight edema. - Labs CBC & Chem 7: 09/26/16 06:03 09/26/16 06:03 Labs: Abnormal Lab Results - Last 24 Hours (Table) 09/25/16 09/25/16 09/26/16 Range/Units 16:39 20:53 02:18 WBC (3.8-10.6) k/uL RBC (4.30-5.90) m/uL Hgb (13.0-17.5) gm/dL Hct (39.0-53.0) % MCH (25.0-35.0) pg MCHC (31.0-37.0) g/dL RDW (11.5-15.5) % Plt Count (150-450) k/uL Neutrophils # (Manual) (1.3-7.7) k/uL Lymphocytes # (Manual) (1.0-4.8) k/uL PT (9.0-12.0) sec Sodium (137-145) mmol/L Chloride (98-107) mmol/L Carbon Dioxide (22-30) mmol/L BUN (9-20) mg/dL Creatinine (0.66-1.25) mg/dL Glucose (74-99) mg/dL POC Glucose (mg/dL) 120 H 122 H 126 H (75-99) mg/dL Calcium (8.4-10.2) mg/dL Total Bilirubin (0.2-1.3) mg/dL AST (17-59) U/L ALT (21-72) U/L Alkaline Phosphatase (38-126) U/L Total Protein (6.3-8.2) g/dL Albumin (3.5-5.0) g/dL 09/26/16 09/26/16 09/26/16 Range/Units 06:03 06:03 06:03 WBC 10.7 H (3.8-10.6) k/uL RBC 3.36 L (4.30-5.90) m/uL Hgb 8.2 L (13.0-17.5) gm/dL Hct 28.4 L (39.0-53.0) % MCH 24.3 L (25.0-35.0) pg MCHC 28.8 L (31.0-37.0) g/dL RDW 17.8 H (11.5-15.5) % Plt Count 98 L (150-450) k/uL Neutrophils # (Manual) 10.1 H (1.3-7.7) k/uL Lymphocytes # (Manual) 0.3 L (1.0-4.8) k/uL PT 14.4 H (9.0-12.0) sec Sodium 124 L (137-145) mmol/L Chloride 91 L (98-107) mmol/L Carbon Dioxide 21 L (22-30) mmol/L BUN 64 H (9-20) mg/dL Creatinine 2.00 H (0.66-1.25) mg/dL Glucose 113 H (74-99) mg/dL POC Glucose (mg/dL) (75-99) mg/dL Calcium 8.3 L (8.4-10.2) mg/dL Total Bilirubin 2.5 H (0.2-1.3) mg/dL AST 113 H (17-59) U/L ALT 113 H (21-72) U/L Alkaline Phosphatase 163 H (38-126) U/L Total Protein 4.9 L (6.3-8.2) g/dL Albumin 2.2 L (3.5-5.0) g/dL 09/26/16 09/26/16 Range/Units 06:14 11:21 WBC (3.8-10.6) k/uL RBC (4.30-5.90) m/uL Hgb (13.0-17.5) gm/dL Hct (39.0-53.0) % MCH (25.0-35.0) pg MCHC (31.0-37.0) g/dL RDW (11.5-15.5) % Plt Count (150-450) k/uL Neutrophils # (Manual) (1.3-7.7) k/uL Lymphocytes # (Manual) (1.0-4.8) k/uL PT (9.0-12.0) sec Sodium (137-145) mmol/L Chloride (98-107) mmol/L Carbon Dioxide (22-30) mmol/L BUN (9-20) mg/dL Creatinine (0.66-1.25) mg/dL Glucose (74-99) mg/dL POC Glucose (mg/dL) 131 H 199 H (75-99) mg/dL Calcium (8.4-10.2) mg/dL Total Bilirubin (0.2-1.3) mg/dL AST (17-59) U/L ALT (21-72) U/L Alkaline Phosphatase (38-126) U/L Total Protein (6.3-8.2) g/dL Albumin (3.5-5.0) g/dL Assessment and Plan (1) Anemia Status: Acute (2) Coagulopathy Status: Acute (3) Diabetes Status: Acute (4) General weakness Status: Acute (5) HTN (hypertension) Status: Acute (6) Hypothyroid Status: Acute (7) Ischemic cardiomyopathy Status: Acute (8) Systolic CHF, acute on chronic Status: Acute (9) CAD (coronary artery disease) Status: Acute (10) Gastrointestinal hemorrhage Status: Acute (11) Liver carcinoma Status: Acute (12) Rectal bleeding Status: Acute (13) Thrombocytopenia Status: Acute Plan: Plan dated 09/25/2016 The patient has a multitude of significant medical problems. He should have a palliative care consultation at the very least. The patient's CODE STATUS needs to be addressed promptly by the primary service. He has a history of a non-ST segment elevation myocardial infarction ischemic cardiomyopathy CHF hepatocellular carcinoma hypotension diabetes hypothyroidism and hepatocellular carcinoma. He also has significant hypoalbuminemia. Anyway, etc. should be addressed. His prognosis is very poor. I'll make mention of this to the nurse. Plan dated 09/18/2016 This patient apparently went for a paracentesis abdominis today. So her certainly improve his breathing which is not practically back to begin with. 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 I did ask the primary to address CODE STATUS with this patient. From the pulmonary standpoint not much more to do. The patient's labs x-rays and medications are reviewed and will be reviewed. Time with Patient: Less than 30
--- NOTE | 2016-09-26 14:22 | P.PN ---
Subjective Principal diagnosis: Shortness of breath This is a 70-year-old gentleman with known history of ischemic cardiomyopathy who is currently receiving treatment for congestive cardiac failure. He is currently on IV Bumex drip at 1mg along with dobutamine drip. Continues to have 1+-2+ edema with bi-basilar crackles. Scheduled today to undergo paracentesis. Creatinine today is 2.0, BUN 64, sodium 124. Objective - Vital Signs Vital signs: Vital Signs Temp 96.7 F L 09/26/16 14:09 Pulse 92 09/26/16 14:09 Resp 18 09/26/16 14:09 BP 92/55 09/26/16 14:09 Pulse Ox 93 L 09/26/16 14:09 Intake & Output 09/25/16 09/26/16 09/26/16 18:59 06:59 18:59 Intake Total 472 876.412 1105 Output Total 300 250 350 Balance 172 225.333 660 Weight 115 kg Intake: IV 150 410 0.9 160 Bumetanide 12 mg In 200 Dextrose 5% in Water 192 ml @ 1 MG/HR 20 mls/hr IV .Q12H MAC Rx#:[id number] Piperacillin-Tazobactam 3 150 50 .375 gm In Dextrose/Water 1 50ml.bag @ 12.5 mls/hr IVPB Q8HR MAC Rx#: [id number] Intake, IV Titration 100 475.333 240 Amount Bumetanide 12 mg In 60 Dextrose 5% in Water 192 ml @ 0.5 MG/HR 10 mls/hr IV .Q24H MAC Rx#: [id number] Bumetanide 12 mg In 40 225.333 240 Dextrose 5% in Water 192 ml @ 1 MG/HR 20 mls/hr IV .Q12H MAC Rx#:[id number] DOBUTamine DRIP 500 mg In 250 Dextrose/Water 1 250ml. bag @ 5 MCG/KG/MIN 16.12 mls/hr IV .[id number] MAC Rx #:[id number] Oral 222 360 Output: Urine 300 250 350 Other: Voiding Method Indwelling Catheter Indwelling Catheter Indwelling Catheter # Voids 1 ABP, PAP, CO, CI - Last Documented Arterial Blood Pressure 106/58 - Exam PHYSICAL EXAMINATION: HEENT: Head is atraumatic, normocephalic. Pupils equal, round. Neck is supple. There is no elevated jugular venous pressure. HEART EXAMINATION: Heart S1 and S2 with systolic murmur is heard. CHEST EXAMINATION: Lungs reveal rales to bilateral bases. ABDOMEN: Soft, nontender. Evidence of ascites .Bowel sounds are heard. No organomegaly noted. Positive scrotal edema EXTREMITIES: 2+ peripheral pulses with 1-2+ evidence of peripheral edema and no calf tenderness noted. NEUROLOGIC patient is awake, alert and oriented -3. . - Labs CBC & Chem 7: 09/26/16 06:03 09/26/16 06:03 Labs: Abnormal Lab Results - Last 24 Hours (Table) 09/25/16 09/25/16 09/26/16 Range/Units 16:39 20:53 02:18 WBC (3.8-10.6) k/uL RBC (4.30-5.90) m/uL Hgb (13.0-17.5) gm/dL Hct (39.0-53.0) % MCH (25.0-35.0) pg MCHC (31.0-37.0) g/dL RDW (11.5-15.5) % Plt Count (150-450) k/uL Neutrophils # (Manual) (1.3-7.7) k/uL Lymphocytes # (Manual) (1.0-4.8) k/uL PT (9.0-12.0) sec Sodium (137-145) mmol/L Chloride (98-107) mmol/L Carbon Dioxide (22-30) mmol/L BUN (9-20) mg/dL Creatinine (0.66-1.25) mg/dL Glucose (74-99) mg/dL POC Glucose (mg/dL) 120 H 122 H 126 H (75-99) mg/dL Calcium (8.4-10.2) mg/dL Total Bilirubin (0.2-1.3) mg/dL AST (17-59) U/L ALT (21-72) U/L Alkaline Phosphatase (38-126) U/L Total Protein (6.3-8.2) g/dL Albumin (3.5-5.0) g/dL 09/26/16 09/26/16 09/26/16 Range/Units 06:03 06:03 06:03 WBC 10.7 H (3.8-10.6) k/uL RBC 3.36 L (4.30-5.90) m/uL Hgb 8.2 L (13.0-17.5) gm/dL Hct 28.4 L (39.0-53.0) % MCH 24.3 L (25.0-35.0) pg MCHC 28.8 L (31.0-37.0) g/dL RDW 17.8 H (11.5-15.5) % Plt Count 98 L (150-450) k/uL Neutrophils # (Manual) 10.1 H (1.3-7.7) k/uL Lymphocytes # (Manual) 0.3 L (1.0-4.8) k/uL PT 14.4 H (9.0-12.0) sec Sodium 124 L (137-145) mmol/L Chloride 91 L (98-107) mmol/L Carbon Dioxide 21 L (22-30) mmol/L BUN 64 H (9-20) mg/dL Creatinine 2.00 H (0.66-1.25) mg/dL Glucose 113 H (74-99) mg/dL POC Glucose (mg/dL) (75-99) mg/dL Calcium 8.3 L (8.4-10.2) mg/dL Total Bilirubin 2.5 H (0.2-1.3) mg/dL AST 113 H (17-59) U/L ALT 113 H (21-72) U/L Alkaline Phosphatase 163 H (38-126) U/L Total Protein 4.9 L (6.3-8.2) g/dL Albumin 2.2 L (3.5-5.0) g/dL 09/26/16 09/26/16 Range/Units 06:14 11:21 WBC (3.8-10.6) k/uL RBC (4.30-5.90) m/uL Hgb (13.0-17.5) gm/dL Hct (39.0-53.0) % MCH (25.0-35.0) pg MCHC (31.0-37.0) g/dL RDW (11.5-15.5) % Plt Count (150-450) k/uL Neutrophils # (Manual) (1.3-7.7) k/uL Lymphocytes # (Manual) (1.0-4.8) k/uL PT (9.0-12.0) sec Sodium (137-145) mmol/L Chloride (98-107) mmol/L Carbon Dioxide (22-30) mmol/L BUN (9-20) mg/dL Creatinine (0.66-1.25) mg/dL Glucose (74-99) mg/dL POC Glucose (mg/dL) 131 H 199 H (75-99) mg/dL Calcium (8.4-10.2) mg/dL Total Bilirubin (0.2-1.3) mg/dL AST (17-59) U/L ALT (21-72) U/L Alkaline Phosphatase (38-126) U/L Total Protein (6.3-8.2) g/dL Albumin (3.5-5.0) g/dL Assessment and Plan (1) NSTEMI (non-ST elevated myocardial infarction) Status: Acute (2) Systolic CHF, acute on chronic Status: Acute (3) Ischemic cardiomyopathy Status: Acute (4) HTN (hypertension) Status: Acute (5) Diabetes Status: Acute (6) Hypothyroid Status: Acute (7) Anemia Status: Acute Plan: From cardiology's perspective, we will recommend to continue Bumex drip. Recommend consulting nephrology. Await paracentesis today. Restrict oral fluid intake check lytes BUN and creatinine in the morning. DNP note has been reviewed, I agree with a documented findings and plan of care. Patient was seen and examined.
[2016-09-26] MEDS: BUMETANIDE 0.25 MG/ML 10 ML VIAL IV SCH ×3 (15:12→21:23)
[2016-09-26] MEDS: ASPIRIN 81 MG CHEW PO SCH (15:12)
[2016-09-26 16:04] LABS: RBC, Body Fluid 460 /uL
[2016-09-26 16:33] LABS: Glucose,Whole Blood 165 mg/dL (75-99)
[2016-09-26] MEDS: ACETAMINOPHEN TAB 325 MG TAB PO PRN ×2 (17:04→23:51)
--- NOTE | 2016-09-26 17:04 | P.PN ---
Subjective This is a 70-year-old gentleman with remote history of hepatocellular carcinoma apparently was diagnosed in August and was treated at the [facility]. Patient came to the hospital with the progressively worsening of dyspnea and abdominal distention. Patient was noted to have a severe diminished EF There was some concern over a cardiac hepatorenal syndrome. Patient was started on dobutamine and a Bumex drip thereafter. Overnight patient's urine output has been 2.6 L. Patient's sodium however has diminished over the last 24 hours. Currently states to be feeling slightly better patient was seen status post paracentesis about 6 L of fluid was removed during the time of my evaluation. Patient denies having any chest pain, difficulty breathing, nausea, vomiting. Objective - Vital Signs Vital signs: Vital Signs Temp 96.7 F L 09/26/16 15:35 Pulse 95 09/26/16 15:35 Resp 18 09/26/16 15:35 BP 105/52 09/26/16 15:35 Pulse Ox 91 L 09/26/16 15:35 Intake & Output 09/25/16 09/26/16 09/26/16 18:59 06:59 18:59 Intake Total 472 675.022 9874.874 Output Total 001 238 4951 Balance 172 225.333 184.874 Weight 115 kg Intake: IV 150 410 0.9 160 Bumetanide 12 mg In 200 Dextrose 5% in Water 192 ml @ 1 MG/HR 20 mls/hr IV .Q12H MAC Rx#:[id number] Piperacillin-Tazobactam 3 150 50 .375 gm In Dextrose/Water 1 50ml.bag @ 12.5 mls/hr IVPB Q8HR MAC Rx#: [id number] Intake, IV Titration 100 475.333 464.874 Amount Bumetanide 12 mg In 60 Dextrose 5% in Water 192 ml @ 0.5 MG/HR 10 mls/hr IV .Q24H MAC Rx#: [id number] Bumetanide 12 mg In 40 225.333 240 Dextrose 5% in Water 192 ml @ 1 MG/HR 20 mls/hr IV .Q12H MAC Rx#:[id number] DOBUTamine DRIP 500 mg In 250 224.874 Dextrose/Water 1 250ml. bag @ 5 MCG/KG/MIN 16.12 mls/hr IV .[id number] MAC Rx #:[id number] Oral 222 360 Output: Urine 801 506 6850 Other: Voiding Method Indwelling Catheter Indwelling Catheter Indwelling Catheter # Voids 1 ABP, PAP, CO, CI - Last Documented Arterial Blood Pressure 106/58 - Exam Gen. appearance alert oriented 3 does appear to be in some respiratory distress HEENT head is atraumatic normocephalic pupils equal round reactive light and accommodation neck is supple no JVD Lungs good air movement anteriorly trace crackles at the bases Heart S1-S2 heard regular rate and rhythm no murmurs appreciable Abdomen is distended there is a large fluid pocket noted on the anterior abdominal wall on the left lower quadrant Genitourinary scrotal edema noted Lower extremities 1-2+ pitting edema noted Neurologically patient moves all 4 extremities no focal deficits appreciated at this time. - Labs CBC & Chem 7: 09/26/16 06:03 09/26/16 06:03 Labs: Abnormal Lab Results - Last 24 Hours (Table) 09/25/16 09/26/16 09/26/16 Range/Units 20:53 02:18 06:03 WBC 10.7 H (3.8-10.6) k/uL RBC 3.36 L (4.30-5.90) m/uL Hgb 8.2 L (13.0-17.5) gm/dL Hct 28.4 L (39.0-53.0) % MCH 24.3 L (25.0-35.0) pg MCHC 28.8 L (31.0-37.0) g/dL RDW 17.8 H (11.5-15.5) % Plt Count 98 L (150-450) k/uL Neutrophils # (Manual) 10.1 H (1.3-7.7) k/uL Lymphocytes # (Manual) 0.3 L (1.0-4.8) k/uL PT (9.0-12.0) sec Sodium (137-145) mmol/L Chloride (98-107) mmol/L Carbon Dioxide (22-30) mmol/L BUN (9-20) mg/dL Creatinine (0.66-1.25) mg/dL Glucose (74-99) mg/dL POC Glucose (mg/dL) 122 H 126 H (75-99) mg/dL Calcium (8.4-10.2) mg/dL Total Bilirubin (0.2-1.3) mg/dL AST (17-59) U/L ALT (21-72) U/L Alkaline Phosphatase (38-126) U/L Total Protein (6.3-8.2) g/dL Albumin (3.5-5.0) g/dL 09/26/16 09/26/16 09/26/16 Range/Units 06:03 06:03 06:14 WBC (3.8-10.6) k/uL RBC (4.30-5.90) m/uL Hgb (13.0-17.5) gm/dL Hct (39.0-53.0) % MCH (25.0-35.0) pg MCHC (31.0-37.0) g/dL RDW (11.5-15.5) % Plt Count (150-450) k/uL Neutrophils # (Manual) (1.3-7.7) k/uL Lymphocytes # (Manual) (1.0-4.8) k/uL PT 14.4 H (9.0-12.0) sec Sodium 124 L (137-145) mmol/L Chloride 91 L (98-107) mmol/L Carbon Dioxide 21 L (22-30) mmol/L BUN 64 H (9-20) mg/dL Creatinine 2.00 H (0.66-1.25) mg/dL Glucose 113 H (74-99) mg/dL POC Glucose (mg/dL) 131 H (75-99) mg/dL Calcium 8.3 L (8.4-10.2) mg/dL Total Bilirubin 2.5 H (0.2-1.3) mg/dL AST 113 H (17-59) U/L ALT 113 H (21-72) U/L Alkaline Phosphatase 163 H (38-126) U/L Total Protein 4.9 L (6.3-8.2) g/dL Albumin 2.2 L (3.5-5.0) g/dL 09/26/16 09/26/16 Range/Units 11:21 16:26 WBC (3.8-10.6) k/uL RBC (4.30-5.90) m/uL Hgb (13.0-17.5) gm/dL Hct (39.0-53.0) % MCH (25.0-35.0) pg MCHC (31.0-37.0) g/dL RDW (11.5-15.5) % Plt Count (150-450) k/uL Neutrophils # (Manual) (1.3-7.7) k/uL Lymphocytes # (Manual) (1.0-4.8) k/uL PT (9.0-12.0) sec Sodium (137-145) mmol/L Chloride (98-107) mmol/L Carbon Dioxide (22-30) mmol/L BUN (9-20) mg/dL Creatinine (0.66-1.25) mg/dL Glucose (74-99) mg/dL POC Glucose (mg/dL) 199 H 165 H (75-99) mg/dL Calcium (8.4-10.2) mg/dL Total Bilirubin (0.2-1.3) mg/dL AST (17-59) U/L ALT (21-72) U/L Alkaline Phosphatase (38-126) U/L Total Protein (6.3-8.2) g/dL Albumin (3.5-5.0) g/dL Assessment and Plan Plan: #1 acute exacerbation of systolic heart failure causing cardio hepato- renal syndrome #2 hypothyroidism #3 history of CAD #4 history of hepatocellular carcinoma #5 bicytopenia #6 hyponatremia that is hypovolemic in nature #7 acute on chronic kidney disease secondary to above #8 diabetes mellitus #9 abdominal wall hernia Plan Patient's Zosyn and Bumex drip will be discontinued as patient appears to be receiving a total of half liter of D5W. We'll repeat a serum sodium level tomorrow. Patient will be started on a strict 1.2 L fluid restriction and a 2 g sodium restriction. Patient will be started on 2.5 mg of Bumex every 4 hours to continue dobutamine at this time. A nephrology consultation will be determined tomorrow depending on the sodium level. Patient is hypovolemic the goal of care should be diuresis. If patient worsens with this prognosis appears to be extremely poor patient will likely not tolerate hemodialysis in this situation. This was discussed with the patient as well patient's CODE STATUS is a full code at this time aracentesi We'll discuss CODE STATUS tomorrow depending on laboratory values thereafter. Patient's ascitic fluid will be sent for analysis today. Status post 6 L of paracentesis
[2016-09-26 20:38] LABS: Glucose,Whole Blood 141 mg/dL (75-99)
[2016-09-26] MEDS: MELATONIN 3 MG TABLET PO SCH (21:19)
[2016-09-26] MEDS: INSULIN GLARGINE 100 UNIT/ML 10 ML VIAL SQ SCH (21:23)
[2016-09-27 02:11] LABS: Glucose,Whole Blood 127 mg/dL (75-99)
[2016-09-27] MEDS: INSULIN LISPRO (humaLOG) 300 UNIT/3 ML VIAL SQ SCH ×8 (05:34→22:30)
[2016-09-27] MEDS: BUMETANIDE 0.25 MG/ML 10 ML VIAL IV SCH ×6 (05:35→22:35)
[2016-09-27] MEDS: DOBUTamine DRIP 500 MG in DEXTROSE/WATER 1 250ML.BAG IV SCH ×2 (06:10→09:20)
[2016-09-27] MEDS: LEVOTHYROXINE 125 MCG TAB PO SCH (06:12)
[2016-09-27] MEDS: PANTOPRAZOLE 40 MG TABLET PO SCH ×2 (06:12→18:24)
[2016-09-27 06:32] LABS: Glucose,Whole Blood 118 mg/dL (75-99)
[2016-09-27 06:54] LABS: Anisocytosis Slight; Aty Lym Flag Slight; CH 23.7; CHCM 29.5; HCT 26.1 % (39.0-53.0); HDW 4.16; HGB 7.7 gm/dL (13.0-17.5); Hypochromasia Marked; MCH 23.9 pg (25.0-35.0); MCHC 29.7 g/dL (31.0-37.0); MCV 80.6 fL (80.0-100.0); Mean Platelet Volume 8.5; Microcytosis Slight; Poikilocytosis Moderate; RBC 3.23 m/uL (4.30-5.90); RDW 17.5 % (11.5-15.5); WBC 10.5 k/uL (3.8-10.6); WBC (Perox) 10.99
[2016-09-27 06:57] LABS: Calcium 8.2 mg/dL (8.4-10.2); Magnesium 2.6 mg/dL (1.6-2.3); Potassium 4.1 mmol/L (3.5-5.1); Total Bilirubin 2.3 mg/dL (0.2-1.3); Total Protein 4.8 g/dL (6.3-8.2)
[2016-09-27 07:53] LABS: Add Differential Manual Differential
[2016-09-27 07:55] LABS: Manual Review Performed; Nucleated Red Blood Cells 0 /100 WBC (0-0); Total Cells Counted 100
[2016-09-27 07:56] LABS: Toxic Granulation Present
[2016-09-27] MEDS: SYMBICORT 160-4.5 MCG INHALER INHALATION SCH ×2 (08:55→19:22)
[2016-09-27] MEDS: METOPROLOL TARTRATE 12.5 MG TAB PO SCH ×2 (09:42→22:34)
[2016-09-27] MEDS: ASPIRIN 81 MG CHEW PO SCH (09:43)
[2016-09-27] MEDS: METOLAZONE 5 MG TAB PO SCH (09:43)
[2016-09-27] MEDS: SPIRONOLACTONE 25 MG TAB PO SCH ×2 (09:44→22:33)
[2016-09-27] MEDS: MAGNESIUM OXIDE 400 MG TAB PO SCH ×4 (09:44→22:34)
[2016-09-27] MEDS: PREGABALIN 50 MG CAP PO SCH (09:45)
[2016-09-27 12:07] LABS: Glucose,Whole Blood 173 mg/dL (75-99)
--- NOTE | 2016-09-27 14:06 | P.PN ---
Subjective Progress note dated 09/25/2016 This is a 70-year-old male with a history of multiple medical problems including heart failure liver cancer and ascites. He also has jaundice. The patient may benefit from paracentesis abdominis. He has end-stage liver disease and hepatocellular carcinoma as mentioned above. Denies any breathing problems today. Laying nearly flat. On nasal O2. No respiratory distress or difficulty. Progress note dated 09/26/2016 70-year-old male with history of multiple medical problems including CHF hepatocellular carcinoma and ascites. He had a paracentesis abdominis today. He also has jaundice. The patient's end-stage liver disease is secondary to cancer. Yesterday we saw him he was apparently not having any breathing issues. I suspect the paracentesis abdominis will help him down the road. I did ask the nurse to call the primary physician to address CODE STATUS as I think the patient's at high risk for rapid deterioration. Given his health history, I don't believe the mechanical ventilator would be good option for this patient. Progress note dated 09/27/2016 70-year-old male with a history of multiple medical problems including heart failure hepatocellular carcinoma and ascites. He had a paracentesis abdominis done yesterday. He has history of jaundice. He has end-stage liver disease. We reached out to the primary service to talk about CODE STATUS. I tried to talk with him today. I will no that he understands what I'm talking about. I do not think the intensive care unit intubation and mechanical ventilation would be a good situation for this patient given his current history. Anyway does need to be discussed with the family. Otherwise she's doing about the same. Objective - Vital Signs Vital signs: Vital Signs Temp 97.7 F 09/27/16 11:38 Pulse 85 09/27/16 11:38 Resp 16 09/27/16 11:38 BP 90/51 09/27/16 11:38 Pulse Ox 92 L 09/27/16 11:38 Intake & Output 09/26/16 09/27/16 09/27/16 18:59 06:59 18:59 Intake Total 1234.874 601.263 231.047 Output Total 1050 3100 Balance 184.874 -2498.737 231.047 Weight 115 kg 99.9 kg Intake: IV 410 120 0.9 160 120 Bumetanide 12 mg In 200 Dextrose 5% in Water 192 ml @ 1 MG/HR 20 mls/hr IV .Q12H MAC Rx#:[id number] Piperacillin-Tazobactam 3 50 .375 gm In Dextrose/Water 1 50ml.bag @ 12.5 mls/hr IVPB Q8HR MAC Rx#: [id number] Intake, IV Titration 464.874 241.263 51.047 Amount Bumetanide 12 mg In 240 Dextrose 5% in Water 192 ml @ 1 MG/HR 20 mls/hr IV .Q12H MAC Rx#:[id number] DOBUTamine DRIP 500 mg In 224.874 241.263 51.047 Dextrose/Water 1 250ml. bag @ 5 MCG/KG/MIN 16.12 mls/hr IV .[id number] MAC Rx #:[id number] Oral 360 240 180 Output: Urine 1050 3100 Other: Voiding Method Indwelling Catheter Indwelling Catheter Indwelling Catheter # Voids 0 ABP, PAP, CO, CI - Last Documented Arterial Blood Pressure 106/58 - Exam No acute distress, oriented 3. A bit sleepy. HEENT examination is grossly unremarkable. Mucous membranes are moist. No oral lesions. Neck supple. Full range of motion. Cardiovascular examination reveals regular rhythm rate. S1-S2 normal. No murmur. Lungs remain reveal a few scattered crackles. Breath sounds are diminished. Mild wheezing noted. Abdomen is obese. L sounds are not noted. The patient does have ascites. Extremities are intact. Slight edema. - Labs CBC & Chem 7: 09/27/16 06:18 09/27/16 06:18 Labs: Abnormal Lab Results - Last 24 Hours (Table) 09/26/16 09/26/16 09/27/16 Range/Units 16:26 20:36 02:09 RBC (4.30-5.90) m/uL Hgb (13.0-17.5) gm/dL Hct (39.0-53.0) % MCH (25.0-35.0) pg MCHC (31.0-37.0) g/dL RDW (11.5-15.5) % Plt Count (150-450) k/uL Neutrophils # (Manual) (1.3-7.7) k/uL Lymphocytes # (Manual) (1.0-4.8) k/uL Sodium (137-145) mmol/L Chloride (98-107) mmol/L BUN (9-20) mg/dL Creatinine (0.66-1.25) mg/dL Glucose (74-99) mg/dL POC Glucose (mg/dL) 165 H 141 H 127 H (75-99) mg/dL Calcium (8.4-10.2) mg/dL Magnesium (1.6-2.3) mg/dL Total Bilirubin (0.2-1.3) mg/dL AST (17-59) U/L ALT (21-72) U/L Alkaline Phosphatase (38-126) U/L Total Protein (6.3-8.2) g/dL Albumin (3.5-5.0) g/dL 09/27/16 09/27/16 09/27/16 Range/Units 06:13 06:18 06:18 RBC 3.23 L (4.30-5.90) m/uL Hgb 7.7 L (13.0-17.5) gm/dL Hct 26.1 L (39.0-53.0) % MCH 23.9 L (25.0-35.0) pg MCHC 29.7 L (31.0-37.0) g/dL RDW 17.5 H (11.5-15.5) % Plt Count 85 L (150-450) k/uL Neutrophils # (Manual) 9.0 H (1.3-7.7) k/uL Lymphocytes # (Manual) 0.5 L (1.0-4.8) k/uL Sodium 126 L (137-145) mmol/L Chloride 90 L (98-107) mmol/L BUN 71 H (9-20) mg/dL Creatinine 2.18 H (0.66-1.25) mg/dL Glucose 114 H (74-99) mg/dL POC Glucose (mg/dL) 118 H (75-99) mg/dL Calcium 8.2 L (8.4-10.2) mg/dL Magnesium 2.6 H (1.6-2.3) mg/dL Total Bilirubin 2.3 H (0.2-1.3) mg/dL AST 83 H (17-59) U/L ALT 101 H (21-72) U/L Alkaline Phosphatase 149 H (38-126) U/L Total Protein 4.8 L (6.3-8.2) g/dL Albumin 2.1 L (3.5-5.0) g/dL 09/27/16 Range/Units 11:39 RBC (4.30-5.90) m/uL Hgb (13.0-17.5) gm/dL Hct (39.0-53.0) % MCH (25.0-35.0) pg MCHC (31.0-37.0) g/dL RDW (11.5-15.5) % Plt Count (150-450) k/uL Neutrophils # (Manual) (1.3-7.7) k/uL Lymphocytes # (Manual) (1.0-4.8) k/uL Sodium (137-145) mmol/L Chloride (98-107) mmol/L BUN (9-20) mg/dL Creatinine (0.66-1.25) mg/dL Glucose (74-99) mg/dL POC Glucose (mg/dL) 173 H (75-99) mg/dL Calcium (8.4-10.2) mg/dL Magnesium (1.6-2.3) mg/dL Total Bilirubin (0.2-1.3) mg/dL AST (17-59) U/L ALT (21-72) U/L Alkaline Phosphatase (38-126) U/L Total Protein (6.3-8.2) g/dL Albumin (3.5-5.0) g/dL Assessment and Plan (1) Anemia Status: Acute (2) Coagulopathy Status: Acute (3) Diabetes Status: Acute (4) General weakness Status: Acute (5) HTN (hypertension) Status: Acute (6) Hypothyroid Status: Acute (7) Ischemic cardiomyopathy Status: Acute (8) Systolic CHF, acute on chronic Status: Acute (9) CAD (coronary artery disease) Status: Acute (10) Gastrointestinal hemorrhage Status: Acute (11) Liver carcinoma Status: Acute (12) Rectal bleeding Status: Acute (13) Thrombocytopenia Status: Acute Plan: Plan dated 09/25/2016 The patient has a multitude of significant medical problems. He should have a palliative care consultation at the very least. The patient's CODE STATUS needs to be addressed promptly by the primary service. He has a history of a non-ST segment elevation myocardial infarction ischemic cardiomyopathy CHF hepatocellular carcinoma hypotension diabetes hypothyroidism and hepatocellular carcinoma. He also has significant hypoalbuminemia. Anyway, etc. should be addressed. His prognosis is very poor. I'll make mention of this to the nurse. Plan dated 09/18/2016 This patient apparently went for a paracentesis abdominis today. So her certainly improve his breathing which is not practically back to begin with. 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 I did ask the primary to address CODE STATUS with this patient. From the pulmonary standpoint not much more to do. The patient's labs x-rays and medications are reviewed and will be reviewed. Plan dated 09/27/2016 The patient looks a bit better today. Probably some relief in his breathing from the paracentesis abdominis done yesterday. Cytology on the fluid is pending. He does have a history of hepatocellular carcinoma. Prognosis is poor. CODE STATUS should be discussed by the primary service.
--- NOTE | 2016-09-27 14:11 | P.PN ---
Subjective This is a 70-year-old gentleman with remote history of hepatocellular carcinoma apparently was diagnosed in August and was treated at the [facility]. Patient came to the hospital with the progressively worsening of dyspnea and abdominal distention. Patient was noted to have a severe diminished EF There was some concern over a cardiac hepatorenal syndrome. Patient was started on dobutamine and a Bumex drip thereafter. Overnight patient's urine output has been 2.6 L. Patient's sodium however has diminished over the last 24 hours. Currently states to be feeling slightly better patient was seen status post paracentesis about 6 L of fluid was removed during the time of my evaluation. Patient denies having any chest pain, difficulty breathing, nausea, vomiting. 09/27/2016 Patient states to be feeling slightly better however isn't significant discomfort. Patient probably has 2 bowel movements overnight. Denies having any fevers, chills, nausea, vomiting. Objective - Vital Signs Vital signs: Vital Signs Temp 97.7 F 09/27/16 11:38 Pulse 85 09/27/16 11:38 Resp 16 09/27/16 11:38 BP 90/51 09/27/16 11:38 Pulse Ox 92 L 09/27/16 11:38 Intake & Output 09/26/16 09/27/16 09/27/16 18:59 06:59 18:59 Intake Total 1234.874 601.263 231.047 Output Total 1050 3100 Balance 184.874 -2498.737 231.047 Weight 115 kg 99.9 kg Intake: IV 410 120 0.9 160 120 Bumetanide 12 mg In 200 Dextrose 5% in Water 192 ml @ 1 MG/HR 20 mls/hr IV .Q12H MAC Rx#:[id number] Piperacillin-Tazobactam 3 50 .375 gm In Dextrose/Water 1 50ml.bag @ 12.5 mls/hr IVPB Q8HR MAC Rx#: [id number] Intake, IV Titration 464.874 241.263 51.047 Amount Bumetanide 12 mg In 240 Dextrose 5% in Water 192 ml @ 1 MG/HR 20 mls/hr IV .Q12H MAC Rx#:[id number] DOBUTamine DRIP 500 mg In 224.874 241.263 51.047 Dextrose/Water 1 250ml. bag @ 5 MCG/KG/MIN 16.12 mls/hr IV .[id number] [facility] Rx #:[id number] Oral 360 240 180 Output: Urine 1050 3100 Other: Voiding Method Indwelling Catheter Indwelling Catheter Indwelling Catheter # Voids 0 ABP, PAP, CO, CI - Last Documented Arterial Blood Pressure 106/58 - Exam Gen. appearance alert oriented 3 does appear to be in some respiratory distress HEENT head is atraumatic normocephalic pupils equal round reactive light and accommodation neck is supple no JVD Lungs good air movement anteriorly trace crackles at the bases Heart S1-S2 heard regular rate and rhythm no murmurs appreciable Abdomen is distended there is a large fluid pocket noted on the anterior abdominal wall on the left lower quadrant Genitourinary scrotal edema noted Lower extremities 1-2+ pitting edema noted Neurologically patient moves all 4 extremities no focal deficits appreciated at this time. - Labs CBC & Chem 7: 09/27/16 06:18 09/27/16 06:18 Labs: Abnormal Lab Results - Last 24 Hours (Table) 09/26/16 09/26/16 09/27/16 Range/Units 16:26 20:36 02:09 RBC (4.30-5.90) m/uL Hgb (13.0-17.5) gm/dL Hct (39.0-53.0) % MCH (25.0-35.0) pg MCHC (31.0-37.0) g/dL RDW (11.5-15.5) % Plt Count (150-450) k/uL Neutrophils # (Manual) (1.3-7.7) k/uL Lymphocytes # (Manual) (1.0-4.8) k/uL Sodium (137-145) mmol/L Chloride (98-107) mmol/L BUN (9-20) mg/dL Creatinine (0.66-1.25) mg/dL Glucose (74-99) mg/dL POC Glucose (mg/dL) 165 H 141 H 127 H (75-99) mg/dL Calcium (8.4-10.2) mg/dL Magnesium (1.6-2.3) mg/dL Total Bilirubin (0.2-1.3) mg/dL AST (17-59) U/L ALT (21-72) U/L Alkaline Phosphatase (38-126) U/L Total Protein (6.3-8.2) g/dL Albumin (3.5-5.0) g/dL 09/27/16 09/27/16 09/27/16 Range/Units 06:13 06:18 06:18 RBC 3.23 L (4.30-5.90) m/uL Hgb 7.7 L (13.0-17.5) gm/dL Hct 26.1 L (39.0-53.0) % MCH 23.9 L (25.0-35.0) pg MCHC 29.7 L (31.0-37.0) g/dL RDW 17.5 H (11.5-15.5) % Plt Count 85 L (150-450) k/uL Neutrophils # (Manual) 9.0 H (1.3-7.7) k/uL Lymphocytes # (Manual) 0.5 L (1.0-4.8) k/uL Sodium 126 L (137-145) mmol/L Chloride 90 L (98-107) mmol/L BUN 71 H (9-20) mg/dL Creatinine 2.18 H (0.66-1.25) mg/dL Glucose 114 H (74-99) mg/dL POC Glucose (mg/dL) 118 H (75-99) mg/dL Calcium 8.2 L (8.4-10.2) mg/dL Magnesium 2.6 H (1.6-2.3) mg/dL Total Bilirubin 2.3 H (0.2-1.3) mg/dL AST 83 H (17-59) U/L ALT 101 H (21-72) U/L Alkaline Phosphatase 149 H (38-126) U/L Total Protein 4.8 L (6.3-8.2) g/dL Albumin 2.1 L (3.5-5.0) g/dL 09/27/16 Range/Units 11:39 RBC (4.30-5.90) m/uL Hgb (13.0-17.5) gm/dL Hct (39.0-53.0) % MCH (25.0-35.0) pg MCHC (31.0-37.0) g/dL RDW (11.5-15.5) % Plt Count (150-450) k/uL Neutrophils # (Manual) (1.3-7.7) k/uL Lymphocytes # (Manual) (1.0-4.8) k/uL Sodium (137-145) mmol/L Chloride (98-107) mmol/L BUN (9-20) mg/dL Creatinine (0.66-1.25) mg/dL Glucose (74-99) mg/dL POC Glucose (mg/dL) 173 H (75-99) mg/dL Calcium (8.4-10.2) mg/dL Magnesium (1.6-2.3) mg/dL Total Bilirubin (0.2-1.3) mg/dL AST (17-59) U/L ALT (21-72) U/L Alkaline Phosphatase (38-126) U/L Total Protein (6.3-8.2) g/dL Albumin (3.5-5.0) g/dL Assessment and Plan Plan: #1 acute exacerbation of systolic heart failure causing cardio hepato- renal syndrome #2 hypothyroidism #3 history of CAD #4 history of hepatocellular carcinoma #5 bicytopenia #6 hyponatremia that is hypovolemic in nature #7 acute on chronic kidney disease secondary to above #8 diabetes mellitus #9 abdominal wall hernia Plan Continue Bumex and dobutamine at this time we'll hold off on antibiotics at this time. CODE STATUS will be changed to DO NOT RESUSCITATE at this time. Patient decides to change his goals of care, hospice will be consulted. We'll defer discontinuation of dobutamine at this time to cardiology. Patient has been on it for at least 72 hours. I did have a prolonged discussion with the patient in regards to his condition patient stated that if he is not return to his normal self resuscitation should not be done. Also discussed his condition in regarding to his cardio hepato- renal syndrome and discussed the prognosis is extremely poor and that in his condition to make a complete recovery is of a low probability. Patient stated that he did not know he was that sick and verbalized that he would think about further goals of care.
--- NOTE | 2016-09-27 15:45 | P.PN ---
Subjective Principal diagnosis: Shortness of breath This is a 70-year-old gentleman with known history of ischemic cardiomyopathy who is currently receiving treatment for congestive cardiac failure. Patient has history of hepatocellular carcinoma. Patient was started on dobutamine and Bumex drip, sodium overall has diminished over the past 24 hours, although patient states he is feeling better, however overall not doing well. Dr. Dc did have a discussion with the patient today regarding hospice care. Patient is in agreement. Objective - Vital Signs Vital signs: Vital Signs Temp 97.7 F 09/27/16 11:38 Pulse 85 09/27/16 11:38 Resp 16 09/27/16 11:38 BP 90/51 09/27/16 11:38 Pulse Ox 92 L 09/27/16 11:38 Intake & Output 09/26/16 09/27/16 09/27/16 18:59 06:59 18:59 Intake Total 1234.874 601.263 231.047 Output Total 1050 3100 200 Balance 184.874 -2498.737 31.047 Weight 115 kg 99.9 kg Intake: IV 410 120 0.9 160 120 Bumetanide 12 mg In 200 Dextrose 5% in Water 192 ml @ 1 MG/HR 20 mls/hr IV .Q12H [facility] Rx#:[id number] Piperacillin-Tazobactam 3 50 .375 gm In Dextrose/Water 1 50ml.bag @ 12.5 mls/hr IVPB Q8HR [facility] Rx#: [id number] Intake, IV Titration 464.874 241.263 51.047 Amount Bumetanide 12 mg In 240 Dextrose 5% in Water 192 ml @ 1 MG/HR 20 mls/hr IV .Q12H [facility] Rx#:[id number] DOBUTamine DRIP 500 mg In 224.874 241.263 51.047 Dextrose/Water 1 250ml. bag @ 5 MCG/KG/MIN 16.12 mls/hr IV .[id number] [facility] Rx #:[id number] Oral 360 240 180 Output: Urine 1050 3100 200 Other: Voiding Method Indwelling Catheter Indwelling Catheter Indwelling Catheter # Voids 0 ABP, PAP, CO, CI - Last Documented Arterial Blood Pressure 106/58 - Exam PHYSICAL EXAMINATION: HEENT: Head is atraumatic, normocephalic. Pupils equal, round. Neck is supple. There is no elevated jugular venous pressure. HEART EXAMINATION: Heart S1 and S2 with systolic murmur is heard. CHEST EXAMINATION: Lungs reveal rales to bilateral bases. ABDOMEN: Soft, nontender. Evidence of ascites .Bowel sounds are heard. No organomegaly noted. Positive scrotal edema EXTREMITIES: 2+ peripheral pulses with 1-2+ evidence of peripheral edema and no calf tenderness noted. NEUROLOGIC patient is awake, alert and oriented -3. . - Labs CBC & Chem 7: 09/27/16 06:18 09/27/16 06:18 Labs: Abnormal Lab Results - Last 24 Hours (Table) 09/26/16 09/26/16 09/27/16 Range/Units 16:26 20:36 02:09 RBC (4.30-5.90) m/uL Hgb (13.0-17.5) gm/dL Hct (39.0-53.0) % MCH (25.0-35.0) pg MCHC (31.0-37.0) g/dL RDW (11.5-15.5) % Plt Count (150-450) k/uL Neutrophils # (Manual) (1.3-7.7) k/uL Lymphocytes # (Manual) (1.0-4.8) k/uL Sodium (137-145) mmol/L Chloride (98-107) mmol/L BUN (9-20) mg/dL Creatinine (0.66-1.25) mg/dL Glucose (74-99) mg/dL POC Glucose (mg/dL) 165 H 141 H 127 H (75-99) mg/dL Calcium (8.4-10.2) mg/dL Magnesium (1.6-2.3) mg/dL Total Bilirubin (0.2-1.3) mg/dL AST (17-59) U/L ALT (21-72) U/L Alkaline Phosphatase (38-126) U/L Total Protein (6.3-8.2) g/dL Albumin (3.5-5.0) g/dL 09/27/16 09/27/16 09/27/16 Range/Units 06:13 06:18 06:18 RBC 3.23 L (4.30-5.90) m/uL Hgb 7.7 L (13.0-17.5) gm/dL Hct 26.1 L (39.0-53.0) % MCH 23.9 L (25.0-35.0) pg MCHC 29.7 L (31.0-37.0) g/dL RDW 17.5 H (11.5-15.5) % Plt Count 85 L (150-450) k/uL Neutrophils # (Manual) 9.0 H (1.3-7.7) k/uL Lymphocytes # (Manual) 0.5 L (1.0-4.8) k/uL Sodium 126 L (137-145) mmol/L Chloride 90 L (98-107) mmol/L BUN 71 H (9-20) mg/dL Creatinine 2.18 H (0.66-1.25) mg/dL Glucose 114 H (74-99) mg/dL POC Glucose (mg/dL) 118 H (75-99) mg/dL Calcium 8.2 L (8.4-10.2) mg/dL Magnesium 2.6 H (1.6-2.3) mg/dL Total Bilirubin 2.3 H (0.2-1.3) mg/dL AST 83 H (17-59) U/L ALT 101 H (21-72) U/L Alkaline Phosphatase 149 H (38-126) U/L Total Protein 4.8 L (6.3-8.2) g/dL Albumin 2.1 L (3.5-5.0) g/dL 09/27/16 Range/Units 11:39 RBC (4.30-5.90) m/uL Hgb (13.0-17.5) gm/dL Hct (39.0-53.0) % MCH (25.0-35.0) pg MCHC (31.0-37.0) g/dL RDW (11.5-15.5) % Plt Count (150-450) k/uL Neutrophils # (Manual) (1.3-7.7) k/uL Lymphocytes # (Manual) (1.0-4.8) k/uL Sodium (137-145) mmol/L Chloride (98-107) mmol/L BUN (9-20) mg/dL Creatinine (0.66-1.25) mg/dL Glucose (74-99) mg/dL POC Glucose (mg/dL) 173 H (75-99) mg/dL Calcium (8.4-10.2) mg/dL Magnesium (1.6-2.3) mg/dL Total Bilirubin (0.2-1.3) mg/dL AST (17-59) U/L ALT (21-72) U/L Alkaline Phosphatase (38-126) U/L Total Protein (6.3-8.2) g/dL Albumin (3.5-5.0) g/dL Assessment and Plan (1) NSTEMI (non-ST elevated myocardial infarction) Status: Acute (2) Systolic CHF, acute on chronic Status: Acute (3) Ischemic cardiomyopathy Status: Acute (4) HTN (hypertension) Status: Acute (5) Diabetes Status: Acute (6) Hypothyroid Status: Acute (7) Anemia Status: Acute Plan: From cardiology's perspective, and will be made hospice care today, we will follow him now with an as-needed basis only, thank you for letting us participate in his care. DNP note has been reviewed, I agree with a documented findings and plan of care. Patient was seen and examined.
[2016-09-27 16:30] LABS: Glucose,Whole Blood 156 mg/dL (75-99)
[2016-09-27] MEDS: traMADol 50 MG TAB PO PRN ×2 (17:25→22:33)
[2016-09-27 21:17] LABS: Glucose,Whole Blood 133 mg/dL (75-99)
[2016-09-27] MEDS: INSULIN GLARGINE 100 UNIT/ML 10 ML VIAL SQ SCH (22:28)
[2016-09-27] MEDS: MELATONIN 3 MG TABLET PO SCH (22:32)
[2016-09-27] MEDS ORDERED: LORazepam 2 MG/ML SYRINGE IV PRN (23:21)
[2016-09-28] MEDS: MORPHINE SULFATE 2 MG/ML SYRINGE IVP PRN ×3 (00:02→11:46)
[2016-09-28 02:07] LABS: Glucose,Whole Blood 130 mg/dL (75-99)
[2016-09-28] MEDS: BUMETANIDE 0.25 MG/ML 10 ML VIAL IV SCH ×3 (03:00→12:44)
[2016-09-28] MEDS: INSULIN LISPRO (humaLOG) 300 UNIT/3 ML VIAL SQ SCH ×3 (03:58→08:49)
[2016-09-28 06:14] LABS: Glucose,Whole Blood 112 mg/dL (75-99)
[2016-09-28] MEDS: PANTOPRAZOLE 40 MG TABLET PO SCH (06:38)
[2016-09-28] MEDS: LEVOTHYROXINE 125 MCG TAB PO SCH (06:38)
[2016-09-28 07:02] LABS: Calcium 8.1 mg/dL (8.4-10.2); Potassium 4.3 mmol/L (3.5-5.1); Total Bilirubin 2.5 mg/dL (0.2-1.3); Total Protein 4.9 g/dL (6.3-8.2)
[2016-09-28 07:40] LABS: Anisocytosis Slight; Aty Lym Flag Slight; CH 23.5; CHCM 29.5; HCT 26.7 % (39.0-53.0); HDW 4.08; HGB 8.1 gm/dL (13.0-17.5); Hypochromasia Marked; MCH 24.2 pg (25.0-35.0); MCHC 30.4 g/dL (31.0-37.0); MCV 79.8 fL (80.0-100.0); Mean Platelet Volume 9.2; Microcytosis Slight; Poikilocytosis Moderate; RBC 3.35 m/uL (4.30-5.90); RDW 17.3 % (11.5-15.5); WBC 15.3 k/uL (3.8-10.6); WBC (Perox) 15.76
[2016-09-28 08:47] LABS: Add Differential Manual Differential
[2016-09-28 08:52] LABS: Nucleated Red Blood Cells 0 /100 WBC (0-0); Total Cells Counted 100
[2016-09-28 08:53] LABS: Polychromasia Present; Spherocytes Present
[2016-09-28] MEDS: SYMBICORT 160-4.5 MCG INHALER INHALATION SCH ×2 (09:14→20:54)
[2016-09-28] MEDS: ASPIRIN 81 MG CHEW PO SCH (09:56)
[2016-09-28] MEDS: METOPROLOL TARTRATE 12.5 MG TAB PO SCH (09:57)
[2016-09-28] MEDS: MAGNESIUM OXIDE 400 MG TAB PO SCH (09:57)
[2016-09-28] MEDS: METOLAZONE 5 MG TAB PO SCH (09:57)
[2016-09-28] MEDS: PREGABALIN 50 MG CAP PO SCH (09:57)
[2016-09-28] MEDS: SPIRONOLACTONE 25 MG TAB PO SCH (09:58)
[2016-09-28] MEDS ORDERED: SCOPOLAMINE 1.5MG/72HR PATCH TRANSDERM SCH (11:00)
--- NOTE | 2016-09-28 11:05 | P.PN ---
Subjective Progress note dated 09/25/2016 This is a 70-year-old male with a history of multiple medical problems including heart failure liver cancer and ascites. He also has jaundice. The patient may benefit from paracentesis abdominis. He has end-stage liver disease and hepatocellular carcinoma as mentioned above. Denies any breathing problems today. Laying nearly flat. On nasal O2. No respiratory distress or difficulty. Progress note dated 09/26/2016 70-year-old male with history of multiple medical problems including CHF hepatocellular carcinoma and ascites. He had a paracentesis abdominis today. He also has jaundice. The patient's end-stage liver disease is secondary to cancer. Yesterday we saw him he was apparently not having any breathing issues. I suspect the paracentesis abdominis will help him down the road. I did ask the nurse to call the primary physician to address CODE STATUS as I think the patient's at high risk for rapid deterioration. Given his health history, I don't believe the mechanical ventilator would be good option for this patient. Progress note dated 09/27/2016 70-year-old male with a history of multiple medical problems including heart failure hepatocellular carcinoma and ascites. He had a paracentesis abdominis done yesterday. He has history of jaundice. He has end-stage liver disease. We reached out to the primary service to talk about CODE STATUS. I tried to talk with him today. I will no that he understands what I'm talking about. I do not think the intensive care unit intubation and mechanical ventilation would be a good situation for this patient given his current history. Anyway does need to be discussed with the family. Otherwise she's doing about the same. Progress note dated 09/28/2016 A 70-year-old male with a history of multiple medical problems including but not limited to heart failure hepatocellular carcinoma ascites and jaundice and end-stage liver disease. The patient is a no code currently. Hospice has been consulted. He's fallen into a deep hepatic coma. The family is at the bedside. I did agree to a scopolamine patch. He should be made to full comfort measures at this point in my opinion. Did have a palliative paracentesis abdominis a couple days ago. Objective - Vital Signs Vital signs: Vital Signs Temp 96.9 F L 09/28/16 09:15 Pulse 87 03/30/17 09:15 Resp 22 09/28/16 09:15 BP 95/54 09/28/16 09:15 Pulse Ox 92 L 09/28/16 09:15 Intake & Output 09/27/16 09/28/16 09/28/16 18:59 06:59 18:59 Intake Total 391.047 370 Output Total 200 2000 Balance 191.047 -1630 Weight 100.5 kg Intake: IV 160 320 0.9 160 320 Intake, IV Titration 51.047 Amount DOBUTamine DRIP 500 mg In 51.047 Dextrose/Water 1 250ml. bag @ 5 MCG/KG/MIN 16.12 mls/hr IV [id number] Rx #:[id number] Oral 180 50 Output: Urine 200 2000 Uretheral ([place]) 1000 Other: Voiding Method Indwelling Catheter Indwelling Catheter Indwelling Catheter ABP, PAP, CO, CI - Last Documented Arterial Blood Pressure 106/58 - Exam No acute distress, the patient is very somnolent and lethargic and does not arouse easily. HEENT examination is grossly unremarkable. Mucous membranes are moist. No oral lesions. Neck supple. Full range of motion. Cardiovascular examination reveals regular rhythm rate. S1-S2 normal. No murmur. Lungs remain reveal a few scattered crackles. Breath sounds are diminished. Mild wheezing noted. Abdomen is obese. L sounds are not noted. The patient does have ascites. Extremities are intact. Slight edema. - Labs CBC & Chem 7: 09/28/16 06:28 09/28/16 06:28 Labs: Abnormal Lab Results - Last 24 Hours (Table) 09/27/16 09/27/16 09/27/16 Range/Units 11:39 16:26 21:16 WBC (3.8-10.6) k/uL RBC (4.30-5.90) m/uL Hgb (13.0-17.5) gm/dL Hct (39.0-53.0) % MCV (80.0-100.0) fL MCH (25.0-35.0) pg MCHC (31.0-37.0) g/dL RDW (11.5-15.5) % Plt Count (150-450) k/uL Neutrophils # (Manual) (1.3-7.7) k/uL Sodium (137-145) mmol/L Chloride (98-107) mmol/L BUN (9-20) mg/dL Creatinine (0.66-1.25) mg/dL Glucose (74-99) mg/dL POC Glucose (mg/dL) 173 H 156 H 133 H (75-99) mg/dL Calcium (8.4-10.2) mg/dL Total Bilirubin (0.2-1.3) mg/dL AST (17-59) U/L ALT (21-72) U/L Alkaline Phosphatase (38-126) U/L Total Protein (6.3-8.2) g/dL Albumin (3.5-5.0) g/dL 09/28/16 09/28/16 09/28/16 Range/Units 02:04 06:05 06:28 WBC 15.3 H (3.8-10.6) k/uL RBC 3.35 L (4.30-5.90) m/uL Hgb 8.1 L (13.0-17.5) gm/dL Hct 26.7 L (39.0-53.0) % MCV 79.8 L (80.0-100.0) fL MCH 24.2 L (25.0-35.0) pg MCHC 30.4 L (31.0-37.0) g/dL RDW 17.3 H (11.5-15.5) % Plt Count 92 L (150-450) k/uL Neutrophils # (Manual) 12.5 H (1.3-7.7) k/uL Sodium (137-145) mmol/L Chloride (98-107) mmol/L BUN (9-20) mg/dL Creatinine (0.66-1.25) mg/dL Glucose (74-99) mg/dL POC Glucose (mg/dL) 130 H 112 H (75-99) mg/dL Calcium (8.4-10.2) mg/dL Total Bilirubin (0.2-1.3) mg/dL AST (17-59) U/L ALT (21-72) U/L Alkaline Phosphatase (38-126) U/L Total Protein (6.3-8.2) g/dL Albumin (3.5-5.0) g/dL 09/28/16 Range/Units 06:28 WBC (3.8-10.6) k/uL RBC (4.30-5.90) m/uL Hgb (13.0-17.5) gm/dL Hct (39.0-53.0) % MCV (80.0-100.0) fL MCH (25.0-35.0) pg MCHC (31.0-37.0) g/dL RDW (11.5-15.5) % Plt Count (150-450) k/uL Neutrophils # (Manual) (1.3-7.7) k/uL Sodium 126 L (137-145) mmol/L Chloride 91 L (98-107) mmol/L BUN 83 H* (9-20) mg/dL Creatinine 2.73 H (0.66-1.25) mg/dL Glucose 106 H (74-99) mg/dL POC Glucose (mg/dL) (75-99) mg/dL Calcium 8.1 L (8.4-10.2) mg/dL Total Bilirubin 2.5 H (0.2-1.3) mg/dL AST 66 H (17-59) U/L ALT 91 H (21-72) U/L Alkaline Phosphatase 155 H (38-126) U/L Total Protein 4.9 L (6.3-8.2) g/dL Albumin 2.1 L (3.5-5.0) g/dL Assessment and Plan (1) Anemia Status: Acute (2) Coagulopathy Status: Acute (3) Diabetes Status: Acute (4) General weakness Status: Acute (5) HTN (hypertension) Status: Acute (6) Hypothyroid Status: Acute (7) Ischemic cardiomyopathy Status: Acute (8) Systolic CHF, acute on chronic Status: Acute (9) CAD (coronary artery disease) Status: Acute (10) Gastrointestinal hemorrhage Status: Acute (11) Liver carcinoma Status: Acute (12) Rectal bleeding Status: Acute (13) Thrombocytopenia Status: Acute (14) Hepatic coma Status: Acute Plan: Plan dated 09/25/2016 The patient has a multitude of significant medical problems. He should have a palliative care consultation at the very least. The patient's CODE STATUS needs to be addressed promptly by the primary service. He has a history of a non-ST segment elevation myocardial infarction ischemic cardiomyopathy CHF hepatocellular carcinoma hypotension diabetes hypothyroidism and hepatocellular carcinoma. He also has significant hypoalbuminemia. Anyway, etc. should be addressed. His prognosis is very poor. I'll make mention of this to the nurse. Plan dated 09/18/2016 This patient apparently went for a paracentesis abdominis today. So her certainly improve his breathing which is not practically back to begin with. 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 I did ask the primary to address CODE STATUS with this patient. From the pulmonary standpoint not much more to do. The patient's labs x-rays and medications are reviewed and will be reviewed. Plan dated 09/27/2016 The patient looks a bit better today. Probably some relief in his breathing from the paracentesis abdominis done yesterday. Cytology on the fluid is pending. He does have a history of hepatocellular carcinoma. Prognosis is poor. CODE STATUS should be discussed by the primary service. Plan dated 09/28/2016 The patient's overall condition has deteriorated. He is very lethargic and sleepy. Difficult to arouse even with deep sternal rub. Suggested hepatic coma. The patient apparently has been made DO NOT RESUSCITATE. Hospice is apparently going to see the patient. No additional recommendations are made. Prognosis is very poor Time with Patient: Less than 30
[2016-09-28 11:45] LABS: Glucose,Whole Blood 122 mg/dL (75-99)
[2016-09-28] MEDS ORDERED: LORazepam 2 MG/ML SYRINGE IV PRN (12:07)
[2016-09-28] MEDS ORDERED: MORPHINE SULFATE 2 MG/ML SYRINGE IVP PRN (12:08)
[2016-09-28] MEDS ORDERED: MORPHINE SULFATE (100 MG/2 ML) 100 MG in SODIUM CHLORIDE 0.9% 100 ML IV SCH (12:30)
--- NOTE | 2016-09-28 13:10 | P.PN ---
Subjective This is a 70-year-old gentleman with remote history of hepatocellular carcinoma apparently was diagnosed in August and was treated at the [facility]. Patient came to the hospital with the progressively worsening of dyspnea and abdominal distention. Patient was noted to have a severe diminished EF There was some concern over a cardiac hepatorenal syndrome. Patient was started on dobutamine and a Bumex drip thereafter. Overnight patient's urine output has been 2.6 L. Patient's sodium however has diminished over the last 24 hours. Currently states to be feeling slightly better patient was seen status post paracentesis about 6 L of fluid was removed during the time of my evaluation. Patient denies having any chest pain, difficulty breathing, nausea, vomiting. 09/27/2016 Patient states to be feeling slightly better however isn't significant discomfort. Patient probably has 2 bowel movements overnight. Denies having any fevers, chills, nausea, vomiting. 09/28/2016 Patient is lethargic during the time of my evaluation. Objective - Vital Signs Vital signs: Vital Signs Temp 96.9 F L 09/28/16 09:15 Pulse 87 09/28/16 09:15 Resp 22 09/28/16 09:15 BP 95/54 09/28/16 09:15 Pulse Ox 92 L 09/28/16 09:15 Intake & Output 09/27/16 09/28/16 09/28/16 18:59 06:59 18:59 Intake Total 391.047 370 Output Total 200 2000 Balance 191.047 -1630 Weight 100.5 kg Intake: IV 160 320 0.9 160 320 Intake, IV Titration 51.047 Amount DOBUTamine DRIP 500 mg In 51.047 Dextrose/Water 1 250ml. bag @ 5 MCG/KG/MIN 16.12 mls/hr IV .[id number] [facility] Rx #:[id number] Oral 180 50 Output: Urine 200 2000 Uretheral ([place]) 1000 Other: Voiding Method Indwelling Catheter Indwelling Catheter Indwelling Catheter ABP, PAP, CO, CI - Last Documented Arterial Blood Pressure 106/58 - Exam Gen. Lethargic HEENT head is atraumatic normocephalic pupils equal round reactive light and accommodation neck is supple no JVD Lungs good air movement anteriorly trace crackles at the bases Heart S1-S2 heard regular rate and rhythm no murmurs appreciable Abdomen is distended there is a large fluid pocket noted on the anterior abdominal wall on the left lower quadrant Genitourinary scrotal edema noted Lower extremities 1-2+ pitting edema noted Neurologically patient moves all 4 extremities no focal deficits appreciated at this time. - Labs CBC & Chem 7: 09/28/16 06:28 09/28/16 06:28 Labs: Abnormal Lab Results - Last 24 Hours (Table) 09/27/16 09/27/16 09/28/16 Range/Units 16:26 21:16 02:04 WBC (3.8-10.6) k/uL RBC (4.30-5.90) m/uL Hgb (13.0-17.5) gm/dL Hct (39.0-53.0) % MCV (80.0-100.0) fL MCH (25.0-35.0) pg MCHC (31.0-37.0) g/dL RDW (11.5-15.5) % Plt Count (150-450) k/uL Neutrophils # (Manual) (1.3-7.7) k/uL Sodium (137-145) mmol/L Chloride (98-107) mmol/L BUN (9-20) mg/dL Creatinine (0.66-1.25) mg/dL Glucose (74-99) mg/dL POC Glucose (mg/dL) 156 H 133 H 130 H (75-99) mg/dL Calcium (8.4-10.2) mg/dL Total Bilirubin (0.2-1.3) mg/dL AST (17-59) U/L ALT (21-72) U/L Alkaline Phosphatase (38-126) U/L Total Protein (6.3-8.2) g/dL Albumin (3.5-5.0) g/dL 09/28/16 09/28/16 09/28/16 Range/Units 06:05 06:28 06:28 WBC 15.3 H (3.8-10.6) k/uL RBC 3.35 L (4.30-5.90) m/uL Hgb 8.1 L (13.0-17.5) gm/dL Hct 26.7 L (39.0-53.0) % MCV 79.8 L (80.0-100.0) fL MCH 24.2 L (25.0-35.0) pg MCHC 30.4 L (31.0-37.0) g/dL RDW 17.3 H (11.5-15.5) % Plt Count 92 L (150-450) k/uL Neutrophils # (Manual) 12.5 H (1.3-7.7) k/uL Sodium 126 L (137-145) mmol/L Chloride 91 L (98-107) mmol/L BUN 83 H* (9-20) mg/dL Creatinine 2.73 H (0.66-1.25) mg/dL Glucose 106 H (74-99) mg/dL POC Glucose (mg/dL) 112 H (75-99) mg/dL Calcium 8.1 L (8.4-10.2) mg/dL Total Bilirubin 2.5 H (0.2-1.3) mg/dL AST 66 H (17-59) U/L ALT 91 H (21-72) U/L Alkaline Phosphatase 155 H (38-126) U/L Total Protein 4.9 L (6.3-8.2) g/dL Albumin 2.1 L (3.5-5.0) g/dL 09/28/16 Range/Units 11:43 WBC (3.8-10.6) k/uL RBC (4.30-5.90) m/uL Hgb (13.0-17.5) gm/dL Hct (39.0-53.0) % MCV (80.0-100.0) fL MCH (25.0-35.0) pg MCHC (31.0-37.0) g/dL RDW (11.5-15.5) % Plt Count (150-450) k/uL Neutrophils # (Manual) (1.3-7.7) k/uL Sodium (137-145) mmol/L Chloride (98-107) mmol/L BUN (9-20) mg/dL Creatinine (0.66-1.25) mg/dL Glucose (74-99) mg/dL POC Glucose (mg/dL) 122 H (75-99) mg/dL Calcium (8.4-10.2) mg/dL Total Bilirubin (0.2-1.3) mg/dL AST (17-59) U/L ALT (21-72) U/L Alkaline Phosphatase (38-126) U/L Total Protein (6.3-8.2) g/dL Albumin (3.5-5.0) g/dL Assessment and Plan Plan: #1 acute exacerbation of systolic heart failure causing cardio hepato- renal syndrome #2 hypothyroidism #3 history of CAD #4 history of hepatocellular carcinoma #5 bicytopenia #6 hyponatremia that is hypovolemic in nature #7 acute on chronic kidney disease secondary to above #8 diabetes mellitus #9 abdominal wall hernia Plan Patient is lethargic at this time. Patient's family is at bedside. Goals of care were changed to comfort measures only at this time. Hence patient will be started on a morphine drip at 1 mg per hour to be titrated appropriately Ativan. Scopolamine to prevent respiratory secretions. The patient's case was discussed with the family again. Consult hospice as well.
[2016-09-28] MEDS: ATROPINE OPHTH SOLN 1% 5ML BTL SUBLINGUAL PRN ×2 (20:28→23:33)
[2016-09-29] MEDS: ATROPINE OPHTH SOLN 1% 5ML BTL SUBLINGUAL PRN ×2 (05:36→14:08)
[2016-09-29] MEDS: SYMBICORT 160-4.5 MCG INHALER INHALATION SCH (09:03)
[2016-09-29 09:19] VITALS: TEMP 98.9
--- NOTE | 2016-09-29 15:31 | P.DS ---
Providers Date of admission: 09/18/16 11:13 Attending physician: Flavio Ponce Consults: 09/18/16 18:58 Consult Physician Routine Consulting Provider: Prashant Gibbs Consult Reason/Comments: poor condition Do you want consulting provider notified?: Yes Consult Physician Urgent Consulting Provider: Nafisa Figueroa Consult Reason/Comments: Pleural effusions Do you want consulting provider notified?: Yes Primary care physician: Physician Nonstaff Hospital Course: This is a 70-year-old gentleman with remote history of hepatocellular carcinoma apparently was diagnosed in August and was treated at the [facility]. Patient came to the hospital with the progressively worsening of dyspnea and abdominal distention. Patient was noted to have a severe diminished EF There was some concern over a cardiac hepatorenal syndrome. Patient was started on dobutamine and a Bumex drip thereafter. Overnight patient's urine output has been 2.6 L. Patient's sodium however has diminished over the last 24 hours. Currently states to be feeling slightly better patient was seen status post paracentesis about 6 L of fluid was removed during the time of my evaluation. Patient denies having any chest pain, difficulty breathing, nausea, vomiting. 09/27/2016 Patient states to be feeling slightly better however isn't significant discomfort. Patient probably has 2 bowel movements overnight. Denies having any fevers, chills, nausea, vomiting. 09/28/2016 Patient is lethargic during the time of my evaluation. 09/29/16 No changes. - Exam Gen. Lethargic HEENT head is atraumatic normocephalic pupils equal round reactive light and accommodation neck is supple no JVD Lungs good air movement anteriorly trace crackles at the bases Heart S1-S2 heard regular rate and rhythm no murmurs appreciable Abdomen is distended there is a large fluid pocket noted on the anterior abdominal wall on the left lower quadrant Genitourinary scrotal edema noted Lower extremities 1-2+ pitting edema noted Neurologically patient moves all 4 extremities no focal deficits appreciated at this time. Assessment and Plan Plan: #1 acute exacerbation of systolic heart failure causing cardio hepato- renal syndrome #2 hypothyroidism #3 history of CAD #4 history of hepatocellular carcinoma #5 bicytopenia #6 hyponatremia that is hypovolemic in nature #7 acute on chronic kidney disease secondary to above #8 diabetes mellitus #9 abdominal wall hernia Plan Patient is lethargic at this time. Patient's family is at bedside. Goals of care were changed to comfort measures only at this time. Hence patient will be started on a morphine drip at 1 mg per hour to be titrated appropriately Ativan. Scopolamine to prevent respiratory secretions. The patient's case was discussed with the family again. Consult hospice as well. Patient Condition at Discharge: Serious Plan - Discharge Summary Discharge Medication List Aspirin [Adult Low Dose Aspirin EC] 81 mg PO DAILY 10/23/15 [History] Atorvastatin [Lipitor] 80 mg PO HS 10/23/15 [History] Levothyroxine Sodium [Levoxyl] 125 mcg PO DAILY 10/23/15 [History] Nitroglycerin Sl Tabs [Nitrostat] 0.4 mg SUBLINGUAL Q5M PRN 10/23/15 [History] Omeprazole 20 mg PO BID 10/23/15 [History] Budesonide-Formot 160-4.5 Mcg [Symbicort 160-4.5 Mcg Inhaler] 2 puff INHALATION RT-BID 09/18/16 [History] Ferrous Sulfate [Feosol] 325 mg PO BID 09/18/16 [History] Fluticasone Nasal [place] [Flonase Nasal [place]] 2 spr EA NOSTRIL DAILY PRN [History] Furosemide [Lasix] 20 mg PO DAILY 09/18/16 [History] Insulin Aspart [NovoLOG Flexpen] 10 units SQ AC-TID 09/18/16 [History] Insulin Glargine,Hum.rec.anlog [Lantus Solostar] 10 unit SQ HS 09/18/16 [History ] Isosorbide Mononitrate ER [Imdur] 30 mg PO DAILY 09/18/16 [History] Loratadine [Claritin] 10 mg PO DAILY 09/18/16 [History] Magnesium Chloride [Mag64] 256 mg PO QID 09/18/16 [History] Pregabalin [Lyrica] 50 mg PO DAILY 09/18/16 [History] Propranolol HCl 20 mg PO BID 09/18/16 [History] Saxagliptin HCl [Onglyza] 5 mg PO DAILY 09/18/16 [History] Spironolactone [Aldactone] 50 mg PO DAILY 09/18/16 [History] glipiZIDE [Glucotrol] 10 mg PO AC-BID 09/18/16 [History] metFORMIN HCL [Glucophage] 1,000 mg PO BID 09/18/16 [History] Follow up Appointment(s)/Referral(s): Nonstaff,Physician [Primary Care Provider] - 1-2 days
[2016-09-29 15:39] VITALS: BP 66/37; PULSE 101; RESP 22
== END 2016-09-29 15:53 | disposition hospice, inpatient (51) | DRG 280 ==
LOC: EC 09:02 → 6SEL 11:13 → 6ICU 19:55 → 6SEL 09-22 17:11 → 5ONC 09-29 09:59
PROVIDERS: ADMIT Hospitalist; ATTEND Hospitalist
PROC: 0HQ1XZZ Repair Face Skin, External Approach (ICD-10-PCS; 2016-09-18)
PROC: 0T9B70Z Drainage of Bladder with Drainage Device, Via Natural or Artificial Opening (ICD-10-PCS; 2016-09-23)
PROC: 0W9G3ZZ Drainage of Peritoneal Cavity, Percutaneous Approach (ICD-10-PCS; principal; 2016-09-26)
DX: I21.4 Non-ST elevation (NSTEMI) myocardial infarction (principal); I50.23 Acute on chronic systolic (congestive) heart failure; K72.91 Hepatic failure, unspecified with coma; R57.0 Cardiogenic shock; G93.41 Metabolic encephalopathy; A41.9 Sepsis, unspecified organism; N17.9 Acute kidney failure, unspecified; C22.0 Liver cell carcinoma; I85.10 Secondary esophageal varices without bleeding; E87.1 Hypo-osmolality and hyponatremia; K76.6 Portal hypertension; I13.0 Hypertensive heart and chronic kidney disease with heart failure and stage 1 through stage 4 chronic kidney disease, or unspecified chronic kidney disease; R18.8 Other ascites; J98.11 Atelectasis; D68.9 Coagulation defect, unspecified; E86.1 Hypovolemia; E11.65 Type 2 diabetes mellitus with hyperglycemia; Z51.5 Encounter for palliative care; Z66 Do not resuscitate; S01.81XA Laceration without foreign body of other part of head, initial encounter; M19.90 Unspecified osteoarthritis, unspecified site; K75.81 Nonalcoholic steatohepatitis (NASH); N50.89 Other specified disorders of the male genital organs; N48.89 Other specified disorders of penis; H91.90 Unspecified hearing loss, unspecified ear; H54.7 Unspecified visual loss; E11.22 Type 2 diabetes mellitus with diabetic chronic kidney disease; E88.09 Other disorders of plasma-protein metabolism, not elsewhere classified; R16.2 Hepatomegaly with splenomegaly, not elsewhere classified; R06.2 Wheezing; D69.59 Other secondary thrombocytopenia; T44.7X5A Adverse effect of beta-adrenoreceptor antagonists, initial encounter; D63.0 Anemia in neoplastic disease; I95.2 Hypotension due to drugs; E66.9 Obesity, unspecified; I25.10 Atherosclerotic heart disease of native coronary artery without angina pectoris; I25.5 Ischemic cardiomyopathy; R26.9 Unspecified abnormalities of gait and mobility; R00.1 Bradycardia, unspecified; N18.9 Chronic kidney disease, unspecified; R00.0 Tachycardia, unspecified; K43.9 Ventral hernia without obstruction or gangrene; E78.5 Hyperlipidemia, unspecified; E03.9 Hypothyroidism, unspecified; I25.2 Old myocardial infarction; Z95.5 Presence of coronary angioplasty implant and graft; Z82.49 Family history of ischemic heart disease and other diseases of the circulatory system; Z79.82 Long term (current) use of aspirin; Z79.4 Long term (current) use of insulin; Z79.899 Other long term (current) drug therapy; Z87.891 Personal history of nicotine dependence; Z92.21 Personal history of antineoplastic chemotherapy; Z82.3 Family history of stroke; Z79.51 Long term (current) use of inhaled steroids; Z88.4 Allergy status to anesthetic agent; Z88.5 Allergy status to narcotic agent; Z88.8 Allergy status to other drugs, medicaments and biological substances; Z87.19 Personal history of other diseases of the digestive system; Z68.36 Body mass index [BMI] 36.0-36.9, adult; W06.XXXA Fall from bed, initial encounter; Y92.9 Unspecified place or not applicable
CPT/HCPCS: 36415; 49083; 70450; 71010; 71020; 76705; 80053; 80061; 81001; 82009; 82550; 82553; 82728; 83036; 83540; 83550; 83605; 83735; 83880; 84100; 84132; 84443; 84484; 85025; 85610; 85730; 87040; 87086; 87502; 88108; 88305; 89050; 93005; 93306; 94640; 94760; 96360; 96361; 99285

== ENCOUNTER 2016-09-29 15:56 | Inpatient (IN) | payer MEDICAID ==
[2016-09-29] MEDS ORDERED: LORazepam 2 MG/ML SYRINGE IV PRN (16:36)
[2016-09-29] MEDS ORDERED: ATROPINE OPHTH SOLN 1% 5ML BTL SUBLINGUAL PRN (16:41)
[2016-09-29] MEDS ORDERED: ONDANSETRON 4 MG/2 ML VIAL IVP PRN (16:44)
[2016-09-29] MEDS ORDERED: BISACODYL 10 MG SUPP RECTAL PRN (16:48)
[2016-09-29] MEDS ORDERED: ACETAMINOPHEN SUPPOSITORY 650 MG SUPP RECTAL PRN (16:49)
[2016-09-29] MEDS ORDERED: MINERAL OIL-WHITE PETROLATUM 120 GM JAR TOPICAL PRN (16:51)
[2016-09-29] MEDS ORDERED: ARTIFICIAL TEARS-HYPROMELLOSE DROPS 15 ML BTL BOTH EYES PRN (16:53)
[2016-09-29] MEDS ORDERED: MORPHINE SULFATE 100 MG in SODIUM CHLORIDE 0.9% 100 ML IV SCH (17:00)
[2016-09-29] MEDS ORDERED: SCOPOLAMINE 1.5MG/72HR PATCH TRANSDERM SCH (17:00)
[2016-09-29] MEDS ORDERED: GLYCOPYRROLATE 0.2 MG/ML 2 ML VIAL IVP PRN (17:00)
[2016-09-29] MEDS: ATROPINE OPHTH SOLN 1% 5ML BTL SUBLINGUAL SCH ×2 (17:46→20:57)
[2016-09-29] MEDS: HYOSCYAMINE ORAL DROPS 1.875 MG/15 ML BOTTLE PO SCH ×2 (17:47→21:46)
--- NOTE | 2016-10-04 15:07 | P.DS ---
Providers Date of admission: 09/29/16 15:56 Attending physician: Gordy Dc MD Primary care physician: Stated None Hospital Course: pt was discharged and admitted to hospice with goals of care being comfort measures only Pt later that night Refer to my dc summary for documentation for hospice h n p and dc summary Pt was never physically seen as he only last a few hrs after being discharged to hospice. Plan - Discharge Summary Discharge Medication List Aspirin [Adult Low Dose Aspirin EC] 81 mg PO DAILY 10/23/15 [History] Atorvastatin [Lipitor] 80 mg PO HS 10/23/15 [History] Levothyroxine Sodium [Levoxyl] 125 mcg PO DAILY 10/23/15 [History] Nitroglycerin Sl Tabs [Nitrostat] 0.4 mg SUBLINGUAL Q5M PRN 10/23/15 [History] Omeprazole 20 mg PO BID 10/23/15 [History] Budesonide-Formot 160-4.5 Mcg [Symbicort 160-4.5 Mcg Inhaler] 2 puff INHALATION RT-BID 09/18/16 [History] Ferrous Sulfate [Feosol] 325 mg PO BID 09/18/16 [History] Fluticasone Nasal [place] [Flonase Nasal [place]] 2 spr EA NOSTRIL DAILY PRN [History] Furosemide [Lasix] 20 mg PO DAILY 09/18/16 [History] Insulin Aspart [NovoLOG Flexpen] 10 units SQ AC-TID 09/18/16 [History] Insulin Glargine,Hum.rec.anlog [Lantus Solostar] 10 unit SQ HS 09/18/16 [History ] Isosorbide Mononitrate ER [Imdur] 30 mg PO DAILY 09/18/16 [History] Loratadine [Claritin] 10 mg PO DAILY 09/18/16 [History] Magnesium Chloride [Mag64] 256 mg PO QID 09/18/16 [History] Pregabalin [Lyrica] 50 mg PO DAILY 09/18/16 [History] Propranolol HCl 20 mg PO BID 09/18/16 [History] Saxagliptin HCl [Onglyza] 5 mg PO DAILY 09/18/16 [History] Spironolactone [Aldactone] 50 mg PO DAILY 09/18/16 [History] glipiZIDE [Glucotrol] 10 mg PO AC-BID 09/18/16 [History] metFORMIN HCL [Glucophage] 1,000 mg PO BID 09/18/16 [History] Discharge Disposition: - Preliminary Cause of Preliminary Cause of : systolic heart failure.
== END 2016-09-30 00:59 | disposition expired ==
LOC: 5ONC 15:56
PROVIDERS: ADMIT Internal Medicine; ATTEND Internal Medicine
DX: I21.4 Non-ST elevation (NSTEMI) myocardial infarction (principal); I50.20 Unspecified systolic (congestive) heart failure; E87.1 Hypo-osmolality and hyponatremia; R57.0 Cardiogenic shock; I11.0 Hypertensive heart disease with heart failure; E11.65 Type 2 diabetes mellitus with hyperglycemia; D69.6 Thrombocytopenia, unspecified; R16.2 Hepatomegaly with splenomegaly, not elsewhere classified; Z51.5 Encounter for palliative care; I25.10 Atherosclerotic heart disease of native coronary artery without angina pectoris; D64.9 Anemia, unspecified; E03.9 Hypothyroidism, unspecified; R26.9 Unspecified abnormalities of gait and mobility; I25.2 Old myocardial infarction; E78.5 Hyperlipidemia, unspecified; H91.90 Unspecified hearing loss, unspecified ear; H54.7 Unspecified visual loss; Z79.82 Long term (current) use of aspirin; Z79.4 Long term (current) use of insulin; Z79.899 Other long term (current) drug therapy; Z95.9 Presence of cardiac and vascular implant and graft, unspecified; Z85.05 Personal history of malignant neoplasm of liver